=== PATIENT | male | born 1965 | race African-American/Black ===

== ENCOUNTER → 2017-04-05 | Outpatient (CLI) | payer MEDICARE, OTHER ==
[2017-04-05 11:05] LABS: Basophils % (A) 1 %; CH 25.9; Eosinophils # (A) 0.1 k/uL (0-0.7); Eosinophils % (A) 2 %; HDW 2.59; HGB 17.5 gm/dL (13.0-17.5); Luc # (Auto) 0.12; Luc % (Auto) 3; Lymphocytes # (A) 1.2 k/uL (1.0-4.8); Lymphocytes % (A) 29 %; MCH 26.4 pg (25.0-35.0); MCHC 32.4 g/dL (31.0-37.0); MCV 81.3 fL (80.0-100.0); Monocytes # (A) 0.3 k/uL (0-1.0); Monocytes % (A) 6 %; Neutrophils # (A) 2.6 k/uL (1.3-7.7); Neutrophils % (A) 60 %; RBC 6.64 m/uL (4.30-5.90); RDW 13.2 % (11.5-15.5); WBC 4.3 k/uL (3.8-10.6); WBC (Perox) 4.28
[2017-04-05 11:16] LABS: ALT 34 U/L (21-72); AST 30 U/L (17-59); Alkaline Phosphatase 135 U/L (38-126); Anion Gap 10 mmol/L; Blood Urea Nitrogen 12 mg/dL (9-20); Calcium 9.5 mg/dL (8.4-10.2); Carbon Dioxide 28 mmol/L (22-30); Chloride 103 mmol/L (98-107); Cholesterol 166 mg/dL (<200); Glucose 82 mg/dL (74-99); HDL Cholesterol 37 mg/dL (40-60); Non-African American GFR(MDRD) >60 (>60 ml/min/1.73 sqM); Sodium 141 mmol/L (137-145); Total Bilirubin 0.8 mg/dL (0.2-1.3); Total Protein 8.7 g/dL (6.3-8.2); Triglycerides 57 mg/dL (<150)
[2017-04-05 11:52] LABS: Potassium 4.5 mmol/L (3.5-5.1)
== END | disposition home or self-care (01) ==
LOC: LABWHC1 10:28
DX: R41.0 Disorientation, unspecified (principal)
CPT/HCPCS: 36415; 80053; 80061; 82306; 84443; 85025

== ENCOUNTER → 2018-03-23 | Outpatient (CLI) | payer MEDICARE, OTHER ==
[2018-03-23 10:16] LABS: Basophils % (A) 0 %; Eosinophils # (A) 0.1 k/uL (0-0.7); Eosinophils % (A) 2 %; HCT 50.5 % (39.0-53.0); HGB 16.5 gm/dL (13.0-17.5); Lymphocytes # (A) 1.4 k/uL (1.0-4.8); Lymphocytes % (A) 27 %; MCH 25.8 pg (25.0-35.0); MCHC 32.6 g/dL (31.0-37.0); MCV 79.2 fL (80.0-100.0); Mean Platelet Volume 8.4; Monocytes # (A) 0.3 k/uL (0-1.0); Monocytes % (A) 7 %; Neutrophils # (A) 3.1 k/uL (1.3-7.7); Neutrophils % (A) 61 %; Platelet Count 201 k/uL (150-450); RBC 6.37 m/uL (4.30-5.90); RDW 13.8 % (11.5-15.5); WBC 5.1 k/uL (3.8-10.6)
[2018-03-23 10:48] LABS: Albumin 4.4 g/dL (3.5-5.0); Anion Gap 13 mmol/L; Calcium 9.4 mg/dL (8.4-10.2); Carbon Dioxide 25 mmol/L (22-30); Chloride 104 mmol/L (98-107); Cholesterol 157 mg/dL (<200); Glucose 90 mg/dL (74-99); HDL Cholesterol 35 mg/dL (40-60); LDL Cholesterol,Calculated 111 mg/dL (0-99); Sodium 142 mmol/L (137-145); Total Bilirubin 0.6 mg/dL (0.2-1.3); Total Protein 8.1 g/dL (6.3-8.2); Triglycerides 57 mg/dL (<150)
[2018-03-23 11:34] LABS: ALT 20 U/L (21-72); AST 26 U/L (17-59); Alkaline Phosphatase 122 U/L (38-126); Blood Urea Nitrogen 14 mg/dL (9-20); Potassium 4.3 mmol/L (3.5-5.1)
== END | disposition home or self-care (01) ==
LOC: LABWHC1 09:19
PROVIDERS: ATTEND Nurse Practitioner Primary Care
DX: E63.9 Nutritional deficiency, unspecified (principal); D50.9 Iron deficiency anemia, unspecified
CPT/HCPCS: 36416; 80053; 80061; 84443; 85025

== ENCOUNTER → 2020-07-26 | Outpatient (CLI) | payer MEDICARE, OTHER ==
[2020-07-26 11:52] LABS: Amorphous Sediment,Urine Occasional /hpf; Appearance,Urine Cloudy (Clear); Bilirubin,Urine Negative (Negative); Blood,Urine Negative (Negative); Color,Urine Light Yellow; Glucose,Urine (UA) Negative (Negative); Ketones,Urine Negative (Negative); Leukocyte Esterase,Urine Negative (Negative); Mucus,Urine Rare /hpf; Nitrite,Urine Negative (Negative); PH, Urine 7.5 (5.0-8.0); Protein,Urine Negative (Negative); Specific Gravity,Urine 1.012 (1.001-1.035); Squamous Epithelial Cell,Urine <1 /hpf (0-4); Urobilinogen,Urine <2.0 mg/dL (<2.0); WBC,Urine 1 /hpf (0-5)
[2020-07-26 12:02] LABS: Basophils % (A) 1 %; Eosinophils # (A) 0.2 k/uL (0-0.7); Eosinophils % (A) 4 %; HCT 47.5 % (39.0-53.0); HGB 15.2 gm/dL (13.0-17.5); Lymphocytes # (A) 1.4 k/uL (1.0-4.8); Lymphocytes % (A) 28 %; MCH 26.4 pg (25.0-35.0); MCHC 32.1 g/dL (31.0-37.0); MCV 82.2 fL (80.0-100.0); Monocytes # (A) 0.4 k/uL (0-1.0); Monocytes % (A) 7 %; Neutrophils # (A) 2.8 k/uL (1.3-7.7); Neutrophils % (A) 58 %; Platelet Count 183 k/uL (150-450); RBC 5.78 m/uL (4.30-5.90); RDW 13.2 % (11.5-15.5); WBC 4.8 k/uL (3.8-10.6)
[2020-07-26 18:48] LABS: African American GFR (CKD) 142.4 (60.0-200.0); Albumin 4.6 g/dL (3.80-4.90); Albumin/Globulin Ratio 1.44 (1.60-3.17); Anion Gap 7.4 mmol/L (4.00-12.00); Calcium 9.9 mg/dL (8.7-10.3); Carbon Dioxide 31.6 mmol/L (21.6-31.8); Chol/HDL Ratio 4.37; Globulin 3.2 g/dL (1.6-3.3); LDL Cholesterol,Calculated 102.8 mg/dL (0.0-131.0); Non-African American GFR(CKD) 122.9 (60.0-200.0); Potassium 3.9 mmol/L (3.5-5.5); Total Bilirubin 0.3 mg/dL (0.3-1.2); Total Protein 7.8 g/dL (6.2-8.2); VLDL Calculation 15.2 mg/dL (5.00-40.00)
[2020-07-26 20:23] LABS: Folate, Serum 23.6 ng/mL
== END | disposition home or self-care (01) ==
LOC: LABWHC1 10:43
PROVIDERS: ATTEND Family Medicine
DX: K29.60 Other gastritis without bleeding (principal); R10.13 Epigastric pain; R53.81 Other malaise; G82.50 Quadriplegia, unspecified; G40.909 Epilepsy, unspecified, not intractable, without status epilepticus; F72 Severe intellectual disabilities; M41.9 Scoliosis, unspecified; L91.0 Hypertrophic scar; S73.004A Unspecified dislocation of right hip, initial encounter; Q02 Microcephaly; Z79.899 Other long term (current) drug therapy; Z28.21 Immunization not carried out because of patient refusal
CPT/HCPCS: 36415; 80053; 80061; 81001; 82306; 82607; 82746; 84134; 84443; 85025; 87086

== ENCOUNTER → 2021-02-14 | Outpatient (CLI) | payer MEDICARE, OTHER ==
[2021-02-14 14:39] LABS: Appearance,Urine Clear (Clear); Bilirubin,Urine Negative (Negative); Blood,Urine Negative (Negative); Color,Urine Yellow; Glucose,Urine (UA) Negative (Negative); Ketones,Urine Trace (Negative); Leukocyte Esterase,Urine Negative (Negative); Nitrite,Urine Negative (Negative); Protein,Urine Negative (Negative); Specific Gravity,Urine 1.026 (1.001-1.035)
[2021-02-14 19:38] LABS: Basophils # (A) 0.04 X 10*3/uL (0.00-0.10); Basophils % (A) 0.9 %; Eosinophils # (A) 0.14 X 10*3/uL (0.04-0.35); Eosinophils % (A) 3.1 %; HCT 50.7 % (39.6-50.0); HGB 15.9 g/dL (13.0-17.0); Lymphocytes # (A) 1.44 X 10*3/uL (0.90-5.00); Lymphocytes % (A) 31.4 %; MCH 25.4 pg (27.0-32.0); MCHC 31.4 g/dL (32.0-37.0); Mean Platelet Volume 11.4 fL (9.5-12.2); Monocytes % (A) 10.9 %; Neutrophils # (A) 2.47 X 10*3/uL (1.80-7.70); Neutrophils % (A) 53.7 %; Platelet Count 205 X 10*3/uL (140-440); RBC 6.26 X 10*6/uL (4.40-5.60); RDW 13.4 % (11.5-14.5); WBC 4.59 X 10*3/uL (4.50-10.00)
[2021-02-14 21:25] LABS: African American GFR (CKD) 132.1 (60.0-200.0); Albumin 4.7 g/dL (3.80-4.90); Albumin/Globulin Ratio 1.31 (1.60-3.17); Anion Gap 11.8 mmol/L (4.00-12.00); BUN/Creat Ratio 23.33 Ratio (12.00-20.00); Calcium 9.5 mg/dL (8.7-10.3); Carbon Dioxide 25.2 mmol/L (21.6-31.8); Globulin 3.6 g/dL (1.6-3.3); Potassium 3.7 mmol/L (3.5-5.5); Total Bilirubin 0.4 mg/dL (0.3-1.2); Total Protein 8.3 g/dL (6.2-8.2)
== END | disposition home or self-care (01) ==
LOC: LABWHC1 13:17
PROVIDERS: ATTEND Family Medicine
DX: M62.838 Other muscle spasm (principal); G80.9 Cerebral palsy, unspecified; F72 Severe intellectual disabilities
CPT/HCPCS: 36415; 80053; 81003; 84134; 84443; 85025

== ENCOUNTER → 2021-07-25 | Outpatient (CLI) | payer MEDICARE, OTHER ==
[2021-07-25 13:13] LABS: Amorphous Sediment,Urine Rare /hpf; Appearance,Urine Turbid (Clear); Bacteria,Urine Rare /hpf; Bilirubin,Urine Negative (Negative); Blood,Urine Negative (Negative); Color,Urine Yellow; Glucose,Urine (UA) Negative (Negative); Ketones,Urine Negative (Negative); Leukocyte Esterase,Urine Negative (Negative); Mucus,Urine Rare /hpf; Nitrite,Urine Negative (Negative); Protein,Urine Negative (Negative); RBC,Urine 2 /hpf (0-5); Specific Gravity,Urine 1.019 (1.001-1.035); WBC,Urine 3 /hpf (0-5)
[2021-07-25 21:38] LABS: Basophils # (A) 0.03 X 10*3/uL (0.00-0.10); Basophils % (A) 0.5 %; Eosinophils # (A) 0.12 X 10*3/uL (0.04-0.35); Eosinophils % (A) 2.2 %; HCT 49.6 % (39.6-50.0); HGB 15.3 g/dL (13.0-17.0); Lymphocytes # (A) 1.93 X 10*3/uL (0.90-5.00); Lymphocytes % (A) 34.9 %; MCH 25.5 pg (27.0-32.0); MCHC 30.8 g/dL (32.0-37.0); MCV 82.8 fL (80.0-97.0); Mean Platelet Volume 11.9 fL (9.5-12.2); Neutrophils # (A) 2.94 X 10*3/uL (1.80-7.70); Neutrophils % (A) 53.2 %; Platelet Count 205 X 10*3/uL (140-440); RBC 5.99 X 10*6/uL (4.40-5.60); RDW 13.4 % (11.5-14.5); WBC 5.53 X 10*3/uL (4.50-10.00)
[2021-07-26 00:50] LABS: African American GFR (CKD) 134.5 (60.0-200.0); Albumin 4.3 g/dL (3.8-4.9); Albumin/Globulin Ratio 1.31 (1.60-3.17); Anion Gap 16.7 mmol/L (4.00-12.00); Blood Urea Nitrogen 11.3 mg/dL (9.0-27.0); Calcium 9.1 mg/dL (8.7-10.3); Carbon Dioxide 22.5 mmol/L (21.6-31.8); Globulin 3.3 g/dL (1.6-3.3); Potassium 3.4 mmol/L (3.5-5.5); Total Bilirubin 0.3 mg/dL (0.30-1.20); Total Protein 7.7 g/dL (6.2-8.2)
== END | disposition home or self-care (01) ==
LOC: LABWHC1 12:31
PROVIDERS: ATTEND Family Medicine
DX: L03.112 Cellulitis of left axilla (principal); R82.90 Unspecified abnormal findings in urine; R10.13 Epigastric pain
CPT/HCPCS: 36415; 80053; 81001; 84134; 85025; 87086; 87338

== ENCOUNTER → 2021-10-26 | Outpatient (CLI) | payer MEDICARE, OTHER ==
[2021-10-26 17:38] LABS: Basophils # (A) 0.03 X 10*3/uL (0.00-0.10); Basophils % (A) 0.6 %; Eosinophils # (A) 0.09 X 10*3/uL (0.04-0.35); Eosinophils % (A) 1.9 %; HCT 53.2 % (39.6-50.0); HGB 16.7 g/dL (13.0-17.0); Immature Grans, Automated 0.2 %; Lymphocytes # (A) 1.58 X 10*3/uL (0.90-5.00); MCH 25.7 pg (27.0-32.0); MCHC 31.4 g/dL (32.0-37.0); Monocytes # (A) 0.34 X 10*3/uL (0.20-1.00); Monocytes % (A) 7.3 %; NRBC Per 100 WBC 0 /100 WBCS (0.0-0.0); Platelet Count 170 X 10*3/uL (140-440); RBC 6.49 X 10*6/uL (4.40-5.60); RDW 14.1 % (11.5-14.5); WBC 4.65 X 10*3/uL (4.50-10.00)
[2021-10-26 18:22] LABS: Estimated Average Glucose UNC
[2021-10-26 19:35] LABS: Chol/HDL Ratio 4.35 Ratio; LDL Cholesterol,Calculated 110.6 mg/dL (0.0-131.0)
[2021-10-26 20:09] LABS: ALT 17 U/L (10-49); AST 22 U/L (14-35); African American GFR (CKD) 138.7 (60.0-200.0); Albumin 4.5 g/dL (3.8-4.9); Albumin/Globulin Ratio 1.28 (1.60-3.17); Alkaline Phosphatase 146 U/L (41-126); BUN/Creat Ratio 20.23 Ratio (12.00-20.00); Blood Urea Nitrogen 10.6 mg/dL (9.0-27.0); Calcium 9.6 mg/dL (8.7-10.3); Carbon Dioxide 23.4 mmol/L (20.0-27.5); Chloride 102 mmol/L (96-109); Globulin 3.5 g/dL (1.6-3.3); Glucose 81 mg/dL (70-110); Non-African American GFR(CKD) 119.7 (60.0-200.0); Potassium 4.4 mmol/L (3.5-5.5); Sodium 140 mmol/L (135-145)
== END | disposition home or self-care (01) ==
LOC: LABWHC1 10:02
PROVIDERS: ATTEND Family Medicine
DX: Z00.01 Encounter for general adult medical examination with abnormal findings (principal); G80.9 Cerebral palsy, unspecified; G40.909 Epilepsy, unspecified, not intractable, without status epilepticus; S73.004A Unspecified dislocation of right hip, initial encounter; E87.6 Hypokalemia; R73.9 Hyperglycemia, unspecified; R26.9 Unspecified abnormalities of gait and mobility; X58.XXXA Exposure to other specified factors, initial encounter
CPT/HCPCS: 36415; 80053; 80061; 83036; 84439; 84443; 85025

== ENCOUNTER 2022-05-24 11:27 | Outpatient (CLI) | payer MEDICARE, OTHER | END 2022-05-24 13:02 | disposition home or self-care (01) | LOC: LABPAT 11:27 | PROVIDERS: ATTEND Orthopaedic Surgery | DX: Z53.9 Procedure and treatment not carried out, unspecified reason (principal) ==

== ENCOUNTER → 2022-05-31 | Outpatient (CLI) | payer MEDICARE, OTHER ==
[2022-05-31 14:33] LABS: Basophils # (A) 0.03 X 10*3/uL (0.00-0.10); Basophils % (A) 0.6 %; Eosinophils # (A) 0.07 X 10*3/uL (0.04-0.35); Eosinophils % (A) 1.3 %; HCT 53.6 % (39.6-50.0); HGB 17.1 g/dL (13.0-17.0); Immature Grans, Automated 0.2 %; Lymphocytes # (A) 1.37 X 10*3/uL (0.90-5.00); Lymphocytes % (A) 26.3 %; MCH 25.6 pg (27.0-32.0); MCHC 31.9 g/dL (32.0-37.0); MCV 80.4 fL (80.0-97.0); Mean Platelet Volume 11.9 fL (9.5-12.2); Monocytes # (A) 0.39 X 10*3/uL (0.20-1.00); Monocytes % (A) 7.5 %; NRBC Per 100 WBC 0 /100 WBCS (0.0-0.0); Neutrophils # (A) 3.34 X 10*3/uL (1.80-7.70); Neutrophils % (A) 64.1 %; Platelet Count 200 X 10*3/uL (140-440); RBC 6.67 X 10*6/uL (4.40-5.60); RDW 14.4 % (11.5-14.5); WBC 5.21 X 10*3/uL (4.50-10.00)
[2022-05-31 17:15] LABS: African American GFR (CKD) 130.3 (60.0-200.0); Albumin 4.5 g/dL (3.8-4.9); Albumin/Globulin Ratio 1.07 (1.60-3.17); BUN/Creat Ratio 23.83 Ratio (12.00-20.00); Blood Urea Nitrogen 14.3 mg/dL (9.0-27.0); Calcium 9.4 mg/dL (8.7-10.3); Globulin 4.2 g/dL (1.6-3.3); Non-African American GFR(CKD) 112.4 (60.0-200.0); Total Bilirubin 0.5 mg/dL (0.30-1.20); Total Protein 8.7 g/dL (6.2-8.2)
== END | disposition home or self-care (01) ==
LOC: LABWHC1 09:16
PROVIDERS: ATTEND Family Medicine
DX: F72 Severe intellectual disabilities (principal); G40.909 Epilepsy, unspecified, not intractable, without status epilepticus; G82.50 Quadriplegia, unspecified; M25.551 Pain in right hip; M24.451 Recurrent dislocation, right hip; M54.9 Dorsalgia, unspecified; Z79.899 Other long term (current) drug therapy
CPT/HCPCS: 36415; 80053; 84443; 85025

== ENCOUNTER → 2022-09-25 | Outpatient (CLI) | payer MEDICARE, OTHER ==
[2022-09-25 19:23] LABS: Basophils # (A) 0.03 X 10*3/uL (0.00-0.10); Basophils % (A) 0.6 %; Eosinophils # (A) 0.05 X 10*3/uL (0.04-0.35); HGB 16.6 g/dL (13.0-17.0); Immature Grans, Automated 0.2 %; Lymphocytes # (A) 1.82 X 10*3/uL (0.90-5.00); Lymphocytes % (A) 36.3 %; MCH 25.4 pg (27.0-32.0); MCHC 30.7 g/dL (32.0-37.0); MCV 82.7 fL (80.0-97.0); Mean Platelet Volume 11.8 fL (9.5-12.2); Monocytes # (A) 0.48 X 10*3/uL (0.20-1.00); Monocytes % (A) 9.6 %; NRBC Per 100 WBC 0 /100 WBCS (0.0-0.0); Neutrophils # (A) 2.63 X 10*3/uL (1.80-7.70); Neutrophils % (A) 52.3 %; Platelet Count 187 X 10*3/uL (140-440); RBC 6.53 X 10*6/uL (4.40-5.60); RDW 13.9 % (11.5-14.5); WBC 5.02 X 10*3/uL (4.50-10.00)
[2022-09-26 19:45] LABS: ALT 21 U/L (10-49); AST 32 U/L (14-35); African American GFR (CKD) 126.9 (60.0-200.0); Albumin 4.5 g/dL (3.8-4.9); Albumin/Globulin Ratio 1.26 (1.60-3.17); Alkaline Phosphatase 155 U/L (41-126); BUN/Creat Ratio 20.16 Ratio (12.00-20.00); Blood Urea Nitrogen 12.9 mg/dL (9.0-27.0); Calcium 9.7 mg/dL (8.7-10.3); Carbon Dioxide 16.2 mmol/L (20.0-27.5); Chloride 101 mmol/L (96-109); Globulin 3.6 g/dL (1.6-3.3); Glucose 79 mg/dL (70-110); LDL Cholesterol,Calculated 120.9 mg/dL (0.0-131.0); Non-African American GFR(CKD) 109.5 (60.0-200.0); Potassium 4.3 mmol/L (3.5-5.5); Sodium 142 mmol/L (135-145); Total Protein 8.1 g/dL (6.2-8.2); VLDL Calculation 13.74 mg/dL (5.00-40.00)
== END | disposition home or self-care (01) ==
LOC: LABWHC1 11:48
PROVIDERS: ATTEND Family Medicine
DX: G80.9 Cerebral palsy, unspecified (principal); B35.6 Tinea cruris; K21.9 Gastro-esophageal reflux disease without esophagitis; E55.9 Vitamin D deficiency, unspecified; F72 Severe intellectual disabilities; G40.909 Epilepsy, unspecified, not intractable, without status epilepticus; F41.1 Generalized anxiety disorder; S73.004A Unspecified dislocation of right hip, initial encounter; X58.XXXA Exposure to other specified factors, initial encounter
CPT/HCPCS: 36415; 80053; 80061; 82306; 85025

== ENCOUNTER → 2023-05-03 | Outpatient (CLI) | payer MEDICARE, OTHER ==
[2023-05-03 12:20] LABS: Appearance,Urine Cloudy (Clear); Bacteria,Urine Rare /hpf; Bilirubin,Urine Negative (Negative); Blood,Urine Small (Negative); Color,Urine Light Yellow; Glucose,Urine (UA) Negative (Negative); Ketones,Urine Negative (Negative); Leukocyte Esterase,Urine Large (Negative); Mucus,Urine Rare /hpf; Nitrite,Urine Positive (Negative); Protein,Urine Negative (Negative); RBC,Urine 30 /hpf (0-5); Specific Gravity,Urine 1.012 (1.001-1.035); Urobilinogen,Urine <2.0 mg/dL (<2.0); WBC,Urine 30 /hpf (0-5)
[2023-05-03 23:10] LABS: Basophils # (A) 0.05 X 10*3/uL (0.00-0.10); Eosinophils # (A) 0.12 X 10*3/uL (0.04-0.35); Eosinophils % (A) 2.3 %; HCT 54.6 % (39.6-50.0); HGB 17.1 d/dL (13.0-17.0); Lymphocytes # (A) 1.78 X 10*3/uL (0.90-5.00); MCH 25.1 pg (27.0-32.0); MCHC 31.3 d/dL (32.0-37.0); MCV 80.3 FL (80.0-97.0); Mean Platelet Volume 11.4 FL (9.5-12.2); Monocytes # (A) 0.41 X 10*3/uL (0.20-1.00); Monocytes % (A) 7.8 %; NRBC Per 100 WBC 0 X 10*3/uL (0.00-0.01); Neutrophils # (A) 2.87 X 10*3/uL (1.80-7.70); Neutrophils % (A) 54.7 %; Platelet Count 195 X 10*3/uL (140-440); RDW 13.9 % (11.5-14.5); WBC 5.24 X 10*3/uL (4.50-10.00)
[2023-05-04 07:37] LABS: ALT 16 U/L (10-49); AST 25 U/L (14-35); Albumin 4.7 d/dL (3.8-4.9); Albumin/Globulin Ratio 1.27 Ratio (1.60-3.17); Alkaline Phosphatase 155 U/L (41-126); BUN/Creat Ratio 18.33 Ratio (12.00-20.00); Calcium 9.6 mg/dL (8.7-10.3); Carbon Dioxide 27.1 mmol/L (21.6-31.8); Chloride 101 mmol/L (96-109); Globulin 3.7 d/dL (1.6-3.3); Glucose 86 mg/dL (70-110); Potassium 4.2 mmol/L (3.5-5.5); Sodium 139 mmol/L (135-145); Total Bilirubin 0.4 mg/dL (0.3-1.2); Total Protein 8.4 d/dL (6.2-8.2)
== END | disposition home or self-care (01) ==
LOC: LABWHC1 10:28
PROVIDERS: ATTEND General Practice
DX: G80.9 Cerebral palsy, unspecified (principal); Z87.440 Personal history of urinary (tract) infections
CPT/HCPCS: 36415; 80053; 81001; 85025; 87077; 87086; 87186

== ENCOUNTER → 2023-05-10 | Outpatient (CLI) | payer MEDICARE, OTHER ==
[2023-05-10 11:55] LABS: Basophils % (A) 0 %; Eosinophils # (A) 0.1 k/uL (0-0.7); Eosinophils % (A) 1 %; HGB 16.9 gm/dL (13.0-17.5); Lymphocytes % (A) 23 %; MCH 25.7 pg (25.0-35.0); MCHC 32.5 g/dL (31.0-37.0); MCV 79.2 fL (80.0-100.0); Mean Platelet Volume 8.5; Monocytes # (A) 0.3 k/uL (0-1.0); Monocytes % (A) 6 %; Neutrophils # (A) 2.9 k/uL (1.3-7.7); Neutrophils % (A) 68 %; Platelet Count 164 k/uL (150-450); RBC 6.57 m/uL (4.30-5.90); RDW 13.4 % (11.5-15.5); WBC 4.3 k/uL (3.8-10.6)
[2023-05-10 12:56] LABS: ALT 16 U/L (4-49); AST 24 U/L (17-59); African American GFR (CKD) >90 (>60 ml/min/1.73 sqM); Albumin 4.3 g/dL (3.5-5.0); Alkaline Phosphatase 153 U/L (38-126); Anion Gap 10 mmol/L; Blood Urea Nitrogen 12 mg/dL (9-20); Calcium 9.2 mg/dL (8.4-10.2); Carbon Dioxide 28 mmol/L (22-30); Chloride 102 mmol/L (98-107); Globulin 4.2 g/dL; Glucose 109 mg/dL (74-99); Non-African American GFR(CKD) >90 (>60 ml/min/1.73 sqM); Sodium 140 mmol/L (137-145); Total Bilirubin 0.6 mg/dL (0.2-1.3); Total Protein 8.5 g/dL (6.3-8.2)
== END | disposition home or self-care (01) ==
LOC: LABWHC1 10:33
PROVIDERS: ATTEND Family Medicine
DX: N39.0 Urinary tract infection, site not specified (principal); Z29.8 Encounter for other specified prophylactic measures; D75.1 Secondary polycythemia
CPT/HCPCS: 36415; 80053; 85025

== ENCOUNTER → 2023-05-14 | Outpatient (CLI) | payer MEDICARE, OTHER | END | disposition home or self-care (01) | LOC: LABWHC1 10:30 | PROVIDERS: ATTEND Family Medicine | DX: Z29.8 Encounter for other specified prophylactic measures (principal); N39.0 Urinary tract infection, site not specified; D75.1 Secondary polycythemia | CPT/HCPCS: 36415; 82668 ==

== ENCOUNTER → 2023-11-29 | Outpatient (CLI) | payer MEDICARE, OTHER ==
[2023-11-29 22:40] LABS: HCT 51.4 % (39.6-50.0); HGB 16.2 g/dL (13.0-17.0); MCH 25.4 pg (27.0-32.0); MCHC 31.5 g/dL (32.0-37.0); MCV 80.6 FL (80.0-97.0); Mean Platelet Volume 11.8 FL (9.5-12.2); NRBC Per 100 WBC 0 X 10*3/uL (0.00-0.01); Platelet Count 196 X 10*3/uL (140-440); RBC 6.38 X 10*6/uL (4.40-5.60); WBC 4.81 X 10*3/uL (4.50-10.00)
[2023-11-29 22:51] LABS: Appearance,Urine Clear (Clear); Bilirubin,Urine Negative (Negative); Blood,Urine Negative (Negative); Color,Urine Yellow (Yellow); Ketones,Urine Negative (Negative); Nitrite,Urine Negative (Negative); PH, Urine 6.5
[2023-11-29 23:17] LABS: Chol/HDL Ratio 4.82 Ratio; LDL Cholesterol,Calculated 119.9 mg/dL (0.0-131.0); VLDL Calculation 14.82 mg/dL (5.00-40.00)
[2023-11-29 23:30] LABS: ALT 19 U/L (10-49); AST 24 U/L (14-35); Albumin 4.3 g/dL (3.8-4.9); Albumin/Globulin Ratio 1.26 Ratio (1.60-3.17); Alkaline Phosphatase 148 U/L (41-126); Blood Urea Nitrogen 9.6 mg/dL (9.0-27.0); Calcium 9.2 mg/dL (8.7-10.3); Carbon Dioxide 26.7 mmol/L (21.6-31.8); Chloride 102 mmol/L (96-109); Globulin 3.4 g/dL (1.6-3.3); Glucose 82 mg/dL (70-110); Potassium 4.3 mmol/L (3.5-5.5); Sodium 141 mmol/L (135-145); Total Bilirubin 0.4 mg/dL (0.3-1.2); Total Protein 7.7 g/dL (6.2-8.2)
== END | disposition home or self-care (01) ==
LOC: LABWHC1 10:49
PROVIDERS: ATTEND Family Medicine
DX: G80.9 Cerebral palsy, unspecified (principal); R39.89 Other symptoms and signs involving the genitourinary system; Z79.899 Other long term (current) drug therapy
CPT/HCPCS: 36415; 80053; 80061; 81003; 82306; 85027; 87086

== ENCOUNTER 2024-03-20 16:53 | Inpatient (IN) | payer MEDICARE, OTHER ==
--- NOTE | 2024-03-20 17:39 | ED ---
General Adult HPI - General Chief complaint: Shortness of Breath Stated complaint: SOB Time Seen by Provider: 03/20/24 17:36 Source: patient, family, RN notes reviewed Mode of arrival: wheelchair Limitations: no limitations - History of Present Illness Initial comments: 58-year-old male with a past medical history significant of cerebral palsy presenting to the ER with a chief complaint of lethargy. Sister is providing most of HPI as patient is nonverbal. She reports for the past 2 days patient has been more lethargic than normal. She states he seems to be having abnormal breathing and was feeling "hot". Temperature taken at home was normal but she states he felt hot through his clothing. She states he has been having a mild cough. She also reports he has been having a decreased appetite which is extremely abnormal as his favorite past time is eating. Denies any chest pain, shortness of breath, abdominal pain, constipation/diarrhea, urinary complaints or peripheral edema. - Related Data Home Medications Medication Instructions Recorded Confirmed ALPRAZolam [Xanax] 0.25 mg PO BID PRN 03/20/24 03/20/24 Ascorbic Acid [Vitamin C] 500 mg PO DAILY 03/20/24 03/20/24 Famotidine [Pepcid] 20 mg PO BID 03/20/24 03/20/24 Omeprazole 20 mg PO DAILY 03/20/24 03/20/24 polyethylene glycoL 3350 [Miralax] 17 gm PO DAILY 03/20/24 03/20/24 tiZANidine [Zanaflex] 4 mg PO TID 03/20/24 03/20/24 Allergies Allergy/AdvReac Type Severity Reaction Status Date / Time No Known Allergies Allergy Verified 03/20/24 19:42 Review of Systems ROS Statement: Those systems with pertinent positive or pertinent negative responses have been documented in the HPI. ROS Other: All systems not noted in ROS Statement are negative. Past Medical History Additional Past Medical History / Comment(s): Spastic quadriplegia, cerebtal palsy, microcephaly, seizur disorder, nystagmus, strabismus. Chronically dislocated right hip (monitored by [facility], [facility]) Additional Past Surgical History / Comment(s): Heelcord and hamstring lengthening (1971), right femur varus derotation with internal fixation (1975), Internal fixation removal (1978) Past Psychological History: No Psychological Hx Reported Smoking Status: Never smoker Past Alcohol Use History: None Reported Past Drug Use History: None Reported General Exam Limitations: no limitations General appearance: alert, in no apparent distress Respiratory exam: Present: normal lung sounds bilaterally. Absent: respiratory distress, wheezes, rales, rhonchi, stridor Cardiovascular Exam: Present: regular rate, normal rhythm, normal heart sounds. Absent: systolic murmur, diastolic murmur, rubs, gallop, clicks GI/Abdominal exam: Present: soft, distended, normal bowel sounds Extremities exam: Present: normal inspection, full ROM, normal capillary refill. Absent: tenderness, pedal edema, joint swelling, calf tenderness Skin exam: Present: warm, dry, intact, normal color. Absent: rash Course Vital Signs 03/20/24 03/20/24 03/20/24 17:02 17:12 18:17 Temperature 98.2 F 100.5 F H Pulse Rate 110 H 104 H Respiratory 16 18 Rate Blood Pressure 123/84 O2 Sat by Pulse 97 97 Oximetry 03/20/24 03/20/24 03/20/24 19:00 22:00 22:47 Temperature 98.0 F Pulse Rate 94 91 Respiratory 18 18 Rate Blood Pressure 107/73 140/72 O2 Sat by Pulse 98 99 Oximetry Medical Decision Making - Medical Decision Making Was pt. sent in by a medical professional or institution (CORY Glez, DONOR SERVICES COORDINATOR, urgent care, hospital, or intermediate...) When possible be specific @ -No Did you speak to anyone other than the patient for history (EMS, parent, family, police, friend...)? What history was obtained from this source @ -Sister providing HPI and past medical history in its entirety Did you review nursing and triage notes (agree or disagree)? Why? @ -I reviewed and agree with nursing and triage notes Were old charts reviewed (outside hosp., previous admission, EMS record, old EKG, old radiological studies, urgent care reports/EKG's, intermediate records)? Report findings @ -No old charts were reviewed Differential Diagnosis (chest pain, altered mental status, abdominal pain women, abdominal pain men, vaginal bleeding, weakness, fever, dyspnea, syncope, headache, dizziness, GI bleed, back pain, seizure, CVA, palpatations, mental health, musculoskeletal)? @ -Differential Weakness:Hypoglycemia, shock, sepsis, hyponatremia, anemia, infection, MO, ETOH, adverse medicine reaction, overdose, stroke, this is not meant to be an all-inclusive list. EKG interpreted by me (3pts min.). @ -As above X-rays interpreted by me (1pt min.). @ -KUB x-ray interpreted by me negative for acute cardiopulmonary process. CT interpreted by me (1pt min.). @ -CT abdomen pelvis showing a fecal impaction and dilation of large bowel. U/S interpreted by me (1pt. min.). @ -None done What testing was considered but not performed or refused? (CT, X-rays, U/S, labs)? Why? @ -None What meds were considered but not given or refused? Why? @ -None Did you discuss the management of the patient with other professionals (professionals i.e. , PA, DONOR SERVICES COORDINATOR, lab, RT, psych nurse, social media content manager, sole splitter, teacher, chief juvenile probation officer, case management assistant)? Give summary @ -Yes, case discussed with Dr. Cho who accepts medical admission. Was smoking cessation discussed for >3mins.? @ -No Was critical care preformed (if so, how long)? @ -No Were there social determinants of health that impacted care today? How? (Homelessness, low income, unemployed, alcoholism, drug addiction, transpo rtation, low edu. Level, literacy, decrease access to med. care, long-term, rehab)? @ -No Was there de-escalation of care discussed even if they declined (Discuss DNR or withdrawal of care, Hospice)? DNR status @ -No What co-morbidities impacted this encounter? (DM, HTN, Smoking, COPD, CAD, Cancer, CVA, ARF, Chemo, Hep., AIDS, mental health diagnosis, sleep apnea, morbid obesity)? @ -Cerebral palsy Was patient admitted / discharged? Hospital course, mention meds given and route, prescriptions, significant lab abnormalities, going to OR and other pertinent info. @ -Admitted. 58-year-old male presented to the ER with a chief complaint of lethargy. Sister providing most of HPI. History and physical exam completed. Vitals upon arrival remarkable for a temperature of 100.5 otherwise stable. Exam remarkable for mild distention of abdomen with normal bowel sounds. No focal abdominal tenderness. No rebound or guarding. Laboratory studies obtained remarkable for a leukocytosis WBC 22.2 with a left shift. Hypokalemia 2.9, chloride 109. Urinalysis showing trace glucose and 1+ protein concern of dehydration. Viral swabs negative. Chest x-ray negative. CT abdomen pelvis pe rformed due to abdominal distention. Findings consistent with a fecal impaction. Admission considered for leukocytosis. Case discussed with sound physician, Dr. Cho, accepts admission. Surgery will be on consult for fecal impaction. Blood cultures obtained. Patient started on Zosyn and potassium replacement. Patient made in stable condition. Case discussed with ED attending, Dr. Naidu. Undiagnosed new problem with uncertain prognosis? @ -No Drug Therapy requiring intensive monitoring for toxicity (Heparin, Nitro, Insulin, Cardizem)? @ -No Were any procedures done? @ -No Diagnosis/symptom? @ -Leukocytosis/fecal impaction Acute, or Chronic, or Acute on Chronic? @ -Acute Uncomplicated (without systemic symptoms) or Complicated (systemic symptoms)? @ -Complicated Side effects of treatment? @ -No Exacerbation, Progression, or Severe Exacerbation? @ -No Poses a threat to life or bodily function? How? (Chest pain, USA, MO, pneumonia, PE, COPD, DKA, ARF, appy, cholecystitis, CVA, Diverticulitis, Homicidal, Suicidal, threat to staff... and all critical care pts) @ -Yes, leukocytosis - Lab Data Result diagrams: 03/20/24 18:15 03/20/24 18:15 Lab Results 03/20/24 03/20/24 03/20/24 Range/Units 18:15 18:15 18:15 WBC 22.2 H (3.8-10.6) k/uL RBC 5.80 (4.30-5.90) m/uL Hgb 14.5 (13.0-17.5) gm/dL Hct 47.7 (39.0-53.0) % MCV 82.3 (80.0-100.0) fL MCH 25.1 (25.0-35.0) pg MCHC 30.5 L (31.0-37.0) g/dL RDW 13.7 (11.5-15.5) % Plt Count 193 (150-450) k/uL MPV 9.5 Neutrophils % 86 % Lymphocytes % 5 % Monocytes % 6 % Eosinophils % 1 % Basophils % 0 % Neutrophils # 19.2 H (1.3-7.7) k/uL Lymphocytes # 1.0 (1.0-4.8) k/uL Monocytes # 1.4 H (0-1.0) k/uL Eosinophils # 0.3 (0-0.7) k/uL Basophils # 0.1 (0-0.2) k/uL PT 11.7 (10.0-12.5) sec INR 1.1 (<1.2) APTT 27.0 (22.0-30.0) sec D-Dimer 0.55 (<0.60) mg/L FEU Sodium (137-145) mmol/L Potassium (3.5-5.1) mmol/L Chloride (98-107) mmol/L Carbon Dioxide (22-30) mmol/L Anion Gap mmol/L BUN (9-20) mg/dL Creatinine (0.66-1.25) mg/dL Est GFR (CKD-EPI)AfAm (>60 ml/min/1.73 sqM) Est GFR (CKD-EPI)NonAf (>60 ml/min/1.73 sqM) Glucose (74-99) mg/dL Calcium (8.4-10.2) mg/dL Total Bilirubin (0.2-1.3) mg/dL AST (17-59) U/L ALT (4-49) U/L Alkaline Phosphatase (38-126) U/L Troponin I (0.000-0.034) ng/mL Total Protein (6.3-8.2) g/dL Albumin (3.5-5.0) g/dL Urine Color Yellow Urine Appearance Clear (Clear) Urine pH 6.0 (5.0-8.0) Ur Specific Correll 1.027 (1.001-1.035) Urine Protein 1+ H (Negative) Urine Glucose (UA) Trace H (Negative) Urine Ketones Negative (Negative) Urine Blood Negative (Negative) Urine Nitrite Negative (Negative) Urine Bilirubin Negative (Negative) Urine Urobilinogen 8.0 (<2.0) mg/dL Ur Leukocyte Esterase Negative (Negative) Urine RBC 3 (0-5) /hpf Urine WBC 1 (0-5) /hpf Urine Mucus Rare H (None) /hpf Influenza Type A (PCR) (Not Detectd) Influenza Type B (PCR) (Not Detectd) RSV (PCR) (Not Detectd) SARS-CoV-2 (PCR) (Not Detectd) 03/20/24 03/20/24 03/20/24 Range/Units 18:15 18:15 18:15 WBC (3.8-10.6) k/uL RBC (4.30-5.90) m/uL Hgb (13.0-17.5) gm/dL Hct (39.0-53.0) % MCV (80.0-100.0) fL MCH (25.0-35.0) pg MCHC (31.0-37.0) g/dL RDW (11.5-15.5) % Plt Count (150-450) k/uL MPV Neutrophils % % Lymphocytes % % Monocytes % % Eosinophils % % Basophils % % Neutrophils # (1.3-7.7) k/uL Lymphocytes # (1.0-4.8) k/uL Monocytes # (0-1.0) k/uL Eosinophils # (0-0.7) k/uL Basophils # (0-0.2) k/uL PT (10.0-12.5) sec INR (<1.2) APTT (22.0-30.0) sec D-Dimer (<0.60) mg/L FEU Sodium 139 (137-145) mmol/L Potassium 2.9 L (3.5-5.1) mmol/L Chloride 109 H (98-107) mmol/L Carbon Dioxide 22 (22-30) mmol/L Anion Gap 8 mmol/L BUN 19 (9-20) mg/dL Creatinine 0.38 L (0.66-1.25) mg/dL Est GFR (CKD-EPI)AfAm >90 (>60 ml/min/1.73 sqM) Est GFR (CKD-EPI)NonAf >90 (>60 ml/min/1.73 sqM) Glucose 129 H (74-99) mg/dL Calcium 8.0 L (8.4-10.2) mg/dL Total Bilirubin 0.9 (0.2-1.3) mg/dL AST 23 (17-59) U/L ALT 18 (4-49) U/L Alkaline Phosphatase 119 (38-126) U/L Troponin I 0.023 (0.000-0.034) ng/mL Total Protein 6.0 L (6.3-8.2) g/dL Albumin 3.1 L (3.5-5.0) g/dL Urine Color Urine Appearance (Clear) Urine pH (5.0-8.0) Ur Specific Correll (1.001-1.035) Urine Protein (Negative) Urine Glucose (UA) (Negative) Urine Ketones (Negative) Urine Blood (Negative) Urine Nitrite (Negative) Urine Bilirubin (Negative) Urine Urobilinogen (<2.0) mg/dL Ur Leukocyte Esterase (Negative) Urine RBC (0-5) /hpf Urine WBC (0-5) /hpf Urine Mucus (None) /hpf Influenza Type A (PCR) Not Detected (Not Detectd) Influenza Type B (PCR) Not Detected (Not Detectd) RSV (PCR) Not Detected (Not Detectd) SARS-CoV-2 (PCR) Not Detected (Not Detectd) - EKG Data -: EKG Interpreted by Fl EKG Comments: EKG taken at 18: 06 showing a sinus rhythm with no acute ST segment or T wave abnormalities. Ventricular rate 97, TX interval 141, QRS duration 112, QT/QTc 339/393. - Radiology Data Radiology results: report reviewed, image reviewed Disposition Clinical Impression: Fecal impaction, Leukocytosis, Hypokalemia Disposition: ADMITTED IP TO THIS [facility] Condition: Stable Referrals: Neil Conway MD [Primary Care Provider] - 1-2 days Time of Disposition: 23:14
[2024-03-20 18:57] LABS: Appearance,Urine Clear (Clear); Bilirubin,Urine Negative (Negative); Blood,Urine Negative (Negative); Color,Urine Yellow; Glucose,Urine (UA) Trace (Negative); Ketones,Urine Negative (Negative); Leukocyte Esterase,Urine Negative (Negative); Mucus,Urine Rare /hpf; Nitrite,Urine Negative (Negative); Protein,Urine 1+ (Negative); RBC,Urine 3 /hpf (0-5); Specific Gravity,Urine 1.027 (1.001-1.035); WBC,Urine 1 /hpf (0-5)
[2024-03-20] MEDS: ACETAMINOPHEN TAB 325 MG TAB PO STA (18:58)
[2024-03-20] MEDS: SODIUM CHLORIDE 0.9% 500 ML 500 ML IV STA (18:58)
[2024-03-20 19:05] LABS: Basophils # (A) 0.1 k/uL (0-0.2); Basophils % (A) 0 %; Eosinophils # (A) 0.3 k/uL (0-0.7); Eosinophils % (A) 1 %; HCT 47.7 % (39.0-53.0); HGB 14.5 gm/dL (13.0-17.5); Lymphocytes % (A) 5 %; MCH 25.1 pg (25.0-35.0); MCHC 30.5 g/dL (31.0-37.0); MCV 82.3 fL (80.0-100.0); Mean Platelet Volume 9.5; Monocytes # (A) 1.4 k/uL (0-1.0); Monocytes % (A) 6 %; Neutrophils # (A) 19.2 k/uL (1.3-7.7); Neutrophils % (A) 86 %; Platelet Count 193 k/uL (150-450); RDW 13.7 % (11.5-15.5); WBC 22.2 k/uL (3.8-10.6)
[2024-03-20 19:16] LABS: ALT 18 U/L (4-49); AST 23 U/L (17-59); African American GFR (CKD) >90 (>60 ml/min/1.73 sqM); Albumin 3.1 g/dL (3.5-5.0); Alkaline Phosphatase 119 U/L (38-126); Anion Gap 8 mmol/L; Blood Urea Nitrogen 19 mg/dL (9-20); Carbon Dioxide 22 mmol/L (22-30); Chloride 109 mmol/L (98-107); Glucose 129 mg/dL (74-99); Non-African American GFR(CKD) >90 (>60 ml/min/1.73 sqM); Potassium 2.9 mmol/L (3.5-5.1); Sodium 139 mmol/L (137-145); Total Bilirubin 0.9 mg/dL (0.2-1.3)
[2024-03-20 19:24] LABS: INR 1.1 (<1.2); Prothrombin Time 11.7 sec (10.0-12.5)
--- NOTE | 2024-03-20 21:19 | XR ---
EXAMINATION TYPE: XR chest 2V DATE OF EXAM: 03/20/2024 COMPARISON: NONE HISTORY: Shortness of breath TECHNIQUE: Frontal and lateral views of the chest are obtained. FINDINGS: Scattered senescent parenchymal changes noted. Hyperinflation compatible with COPD. No evidence for infiltrate. No evidence for atelectasis. Heart size is stable. Mediastinal structures are stable and grossly unremarkable. No evidence for hilar prominence. Degenerative changes dorsal spine. IMPRESSION: 1. No evidence for acute pulmonary disease.
--- NOTE | 2024-03-20 21:39 | CT ---
EXAMINATION TYPE: CT abdomen pelvis w con DATE OF EXAM: 03/20/2024 COMPARISON: HISTORY: Leukocytosis. CT DLP: 1063 mGycm CONTRAST: CT scan of the abdomen and pelvis is performed without Oral Contrast and with IV Contrast, patient in jected with 100 ml mL of Isovue 300. FINDINGS: LUNG BASES-: No visible nodule. No infiltrate. Chronic elevation right hemidiaphragm. Interposition right hemicolon with the right hemidiaphragm. LIVER/GB: No calcified gallstones. No space occupying hepatic lesion. Biliary tree is of normal ca liber. PANCREAS: No inflammation. No distinct mass. SPLEEN: No splenic enlargement. No lesion seen. ADRENALS: No nodule. No thickening. KIDNEYS/BLADDER: No hydronephrosis. No nephrolithiasis. No distinct renal mass. Urinary bladder g rossly unremarkable. BOWEL: Normal appendix. Normal bowel caliber. No inflammation. Large fecal burden compatible with f ecal impaction and dilatation of the large bowel. No evidence for free air. GENITAL ORGANS: No gross abnormality. LYMPH NODES: No greater than 1cm abdominal or pelvic lymph nodes are appreciated. AORTA: No significant abnormality. OSSEOUS STRUCTURES: No significant abnormality is seen. OTHER: No significant additional abnormality is seen. IMPRESSION: 1. Findings felt to reflect fecal impaction.
[2024-03-20] MEDS ORDERED: NALOXONE 0.4 MG/ML 1 ML VIAL IV PRN (23:11)
[2024-03-20] MEDS ORDERED: Potassium Replacement Protocol 1 EACH MISC MISCELLANE PRN (23:12)
[2024-03-20] MEDS: PIPERACILLIN-TAZOBACTAM 3.375 GM in SODIUM CHLORIDE 0.9% 100 ML IVPB STA (23:58)
[2024-03-20] MEDS: SODIUM CHLORIDE 0.9% 1,000 ML IV SCH (23:58)
[2024-03-21] MEDS ORDERED: POTASSIUM CHLORIDE 10 MEQ in WATER FOR INJECTION 1 100ML.BAG IVPB SCH
[2024-03-21] MEDS ORDERED: POTASSIUM CHLORIDE ER 20 MEQ TAB.ER PO SCH
[2024-03-21] MEDS: ALPRAZolam 0.25 MG TAB PO PRN
[2024-03-21] MEDS: ACETAMINOPHEN TAB 325 MG TAB PO PRN (00:08)
--- NOTE | 2024-03-21 01:52 | P.HPIM ---
History of Present Illness H&P Date: 03/21/24 Patient is a 58-year-old male with a PMH of cerebral palsy who was brought into the emergency room for by his family for complaint of lethargic and poor oral intake. The history was obtained from the patient's sister (caregiver) at the bedside. She reports that the patient has been less talkative from his baseline over the past 2 to 3 days. She also reports noticing that he appeared to be somewhat short of breath and that he appeared warm at home. She also had noticed that he had a mild nonproductive cough. The patient had not endorsed any additional complaints to her. She denies noticing diarrhea or vomiting. She in fact reports that he has intermittent constipation and that his last bowel movement was 2 days ago for which he normally takes MiraLAX at home which works well. She denies noticing any urinary complaints, vomiting. CT abdomen and pelvis in the emergency room were consistent with fecal impaction with a chest x-ray unremarkable. EKG revealed sinus rhythm at 97 bpm with findings consistent with LVH with poor R wave progression and inferior leads Q waves as reviewed by me. Laboratory evaluation was remarkable for leukocytosis of 22.2 with neutrophilia, potassium 2.9, with an unremarkable UA and respiratory viral panel unremarkable. Tmax in the emergency room was 101 F with pulse 112. ED documentation reviewed and case discussed with ED provider. Review of systems: Limited due to patient's baseline mental status with history of cerebral palsy Physical examination: Vital signs reviewed General: Contracted male, non toxic, no distress, appears at stated age, normal weight Derm: no unusual rashes/lesions, warm Head: atraumatic, normocephalic, symmetric Eyes: EOMI, no lid lag, anicteric sclera, pupils equal round reactive to light ENT: Nose and ears atraumatic Neck: No cervical lymphadenopathy, trachea midline, supple Mouth: no lip lesion, mucus membranes moist Cardiovascular: S1S2 reg, no murmur, positive dorsalis pedis pulse bilateral, no edema Lungs: CTA bilateral, no rhonchi, no rales, no accessory muscle use Abdominal: soft, nontender to palpation, no guarding Ext: Diffuse muscle atrophy with diffuse contractures Neuro: Severely limited range of motion with diffuse contractures Psych: Patient is only oriented to self and answers some questions Assessment: SIRS without obvious source of infection Hypokalemia Fecal impaction Chronic conditions: Cerebral palsy Imaging: CT abdomen and pelvis in the emergency room were consistent with fecal impaction with a chest x-ray unremarkable. EKG revealed sinus rhythm at 97 bpm with findi ngs consistent with LVH with poor R wave progression and inferior leads Q waves as reviewed by me. Data Review: Laboratory evaluation was remarkable for leukocytosis of 22.2 with neutrophilia, potassium 2.9, with an unremarkable UA and respiratory viral panel unremarkable. Tmax in the emergency room was 101 F with pulse 112. Plan: Follow-up blood cultures Continue with cardiac monitoring Continue IV fluids normal saline 75 cc/h Continue empiric antibiotic coverage with Zosyn 3.375 g every 8 hourly for now Replace potassium and monitor for resolution Patient normally takes MiraLAX at home for constipation, ordered for now DVT prophylaxis: Lovenox subcu The patient is admitted with an anticipated fewer than 2 midnight stay for evaluation of SIRS CODE STATUS: Full Code Discussed with: Patient Anticipated discharge place: Home Review of Systems ROS unobtainable: due to mental status Past Medical History Additional Past Medical History / Comment(s): Spastic quadriplegia, cerebtal palsy, microcephaly, seizur disorder, nystagmus, strabismus. Chronically dislocated right hip (monitored by [facility], [facility]) Additional Past Surgical History / Comment(s): Heelcord and hamstring lengthening (1971), right femur varus derotation with internal fixation (1975), Internal fixation removal (1978) Past Psychological History: No Psychological Hx Reported Smoking Status: Never smoker Past Alcohol Use History: None Reported Past Drug Use History: None Reported Medications and Allergies Home Medications Medication Instructions Recorded Confirmed Type ALPRAZolam [Xanax] 0.25 mg PO BID PRN 03/20/24 03/20/24 History Ascorbic Acid [Vitamin C] 500 mg PO DAILY 03/20/24 03/20/24 History Famotidine [Pepcid] 20 mg PO BID 03/20/24 03/20/24 History Omeprazole 20 mg PO DAILY 03/20/24 03/20/24 History polyethylene glycoL 3350 [Miralax] 17 gm PO DAILY 03/20/24 03/20/24 History tiZANidine [Zanaflex] 4 mg PO TID 03/20/24 03/20/24 History Allergies Allergy/AdvReac Type Severity Reaction Status Date / Time No Known Allergies Allergy Verified 03/20/24 19:42 Physical Exam Vitals: Vital Signs Temp Pulse Resp BP Pulse Ox 03/21/24 00:00 101 F H 112 H 18 147/100 99 03/20/24 22:47 98.0 F 03/20/24 22:00 91 18 140/72 99 03/20/24 19:00 94 18 107/73 98 03/20/24 18:17 100.5 F H 03/20/24 17:12 104 H 18 97 03/20/24 17:02 98.2 F 110 H 16 123/84 97 Intake and Output 03/20/24 03/20/24 03/21/24 14:59 22:59 06:59 Other: Weight 54.431 kg Results CBC & Chem 7: 03/20/24 18:15 03/20/24 18:15 Labs: Abnormal Lab Results - Last 24 Hours (Table) 03/20/24 03/20/24 03/20/24 Range/Units 18:15 18:15 18:15 WBC 22.2 H (3.8-10.6) k/uL MCHC 30.5 L (31.0-37.0) g/dL Neutrophils # 19.2 H (1.3-7.7) k/uL Monocytes # 1.4 H (0-1.0) k/uL Potassium 2.9 L (3.5-5.1) mmol/L Chloride 109 H (98-107) mmol/L Creatinine 0.38 L (0.66-1.25) mg/dL Glucose 129 H (74-99) mg/dL Calcium 8.0 L (8.4-10.2) mg/dL Total Protein 6.0 L (6.3-8.2) g/dL Albumin 3.1 L (3.5-5.0) g/dL Urine Protein 1+ H (Negative) Urine Glucose (UA) Trace H (Negative) Urine Mucus Rare H (None) /hpf
[2024-03-21] MEDS: POTASSIUM BICARBONATE/CIT AC 20 MEQ TABLET.EFF PO SCH (03:29)
[2024-03-21] MEDS: polyethylene glycoL 3350 17 GM POWD.PACK PO STA (03:31)
[2024-03-21] MEDS: PIPERACILLIN-TAZOBACTAM 3.375 GM in SODIUM CHLORIDE 0.9% 100 ML IVPB SCH (03:32)
[2024-03-21] MEDS: ASCORBIC ACID 500 MG TAB PO SCH (08:54)
[2024-03-21] MEDS: FAMOTIDINE 20 MG TAB PO SCH (08:54)
[2024-03-21] MEDS: PANTOPRAZOLE 40 MG TABLET PO SCH (08:54)
[2024-03-21] MEDS: ENOXAPARIN 40 MG/0.4 ML SYRINGE SQ SCH (08:55)
[2024-03-21] MEDS: tiZANidine 4 MG TAB PO SCH (08:56)
--- NOTE | 2024-03-21 10:23 | P.GSCN ---
History of Present Illness Consult date: 03/21/24 Reason for Consult: Fecal impaction History of present illness: 58-year-old male with history of cerebral palsy. Unable to provide any history. Patient's brother is present and is assisting with that. Apparently he was having fevers and lethargy at home. Some cough as well. Patient with history of intermittent diarrhea and constipation. Some decreased stools recently. CAT scan was performed showing a large volume of stool particularly in the rectum. We were consulted for fecal impaction. Review of Systems ROS unobtainable: due to mental status Past Medical History Additional Past Medical History / Comment(s): Spastic quadriplegia, cerebtal palsy, microcephaly, seizur disorder, nystagmus, strabismus. Chronically dislocated right hip (monitored by [facility], [facility]) History of Any Multi-Drug Resistant Organisms: None Reported Additional Past Surgical History / Comment(s): Heelcord and hamstring lengthening (1971), right femur varus derotation with internal fixation (1975), Internal fixation removal (1978) Past Psychological History: No Psychological Hx Reported Smoking Status: Never smoker Past Alcohol Use History: None Reported Past Drug Use History: None Reported Medications and Allergies Home Medications Medication Instructions Recorded Confirmed Type ALPRAZolam [Xanax] 0.25 mg PO BID PRN 03/20/24 03/20/24 History Ascorbic Acid [Vitamin C] 500 mg PO DAILY 03/20/24 03/20/24 History Famotidine [Pepcid] 20 mg PO BID 03/20/24 03/20/24 History Omeprazole 20 mg PO DAILY 03/20/24 03/20/24 History polyethylene glycoL 3350 [Miralax] 17 gm PO DAILY 03/20/24 03/20/24 History tiZANidine [Zanaflex] 4 mg PO TID 03/20/24 03/20/24 History Allergies Allergy/AdvReac Type Severity Reaction Status Date / Time No Known Allergies Allergy Verified 03/20/24 19:42 Surgical - Exam Vital Signs Temp Pulse Resp BP Pulse Ox 98.2 F 110 H 16 123/84 97 03/20/24 17:02 03/20/24 17:02 03/20/24 17:02 03/20/24 17:02 03/20/24 17:02 Physical exam: General: Well-developed, well-nourished HEENT: Normocephalic, sclerae nonicteric Abdomen: Nontender, nondistended Extremities: Can factures noted Neuro: Alert and pleasant Rectal: No mass, large volume of soft stool present Results - Labs 03/20/24 18:15 03/20/24 18:15 Abnormal Lab Results - Last 24 Hours (Table) 03/20/24 03/20/24 03/20/24 Range/Units 18:15 18:15 18:15 WBC 22.2 H (3.8-10.6) k/uL MCHC 30.5 L (31.0-37.0) g/dL Neutrophils # 19.2 H (1.3-7.7) k/uL Monocytes # 1.4 H (0-1.0) k/uL Potassium 2.9 L (3.5-5.1) mmol/L Chloride 109 H (98-107) mmol/L Creatinine 0.38 L (0.66-1.25) mg/dL Glucose 129 H (74-99) mg/dL Calcium 8.0 L (8.4-10.2) mg/dL Total Protein 6.0 L (6.3-8.2) g/dL Albumin 3.1 L (3.5-5.0) g/dL Urine Protein 1+ H (Negative) Urine Glucose (UA) Trace H (Negative) Urine Mucus Rare H (None) /hpf Diabetes panel 03/20/24 Range/Units 18:15 Sodium 139 (137-145) mmol/L Potassium 2.9 L (3.5-5.1) mmol/L Chloride 109 H (98-107) mmol/L Carbon Dioxide 22 (22-30) mmol/L BUN 19 (9-20) mg/dL Creatinine 0.38 L (0.66-1.25) mg/dL Glucose 129 H (74-99) mg/dL Calcium 8.0 L (8.4-10.2) mg/dL AST 23 (17-59) U/L ALT 18 (4-49) U/L Alkaline Phosphatase 119 (38-126) U/L Total Protein 6.0 L (6.3-8.2) g/dL Albumin 3.1 L (3.5-5.0) g/dL Calcium panel 03/20/24 Range/Units 18:15 Calcium 8.0 L (8.4-10.2) mg/dL Albumin 3.1 L (3.5-5.0) g/dL Pituitary panel 03/20/24 Range/Units 18:15 Sodium 139 (137-145) mmol/L Potassium 2.9 L (3.5-5.1) mmol/L Chloride 109 H (98-107) mmol/L Carbon Dioxide 22 (22-30) mmol/L BUN 19 (9-20) mg/dL Creatinine 0.38 L (0.66-1.25) mg/dL Glucose 129 H (74-99) mg/dL Calcium 8.0 L (8.4-10.2) mg/dL Adrenal panel 03/20/24 Range/Units 18:15 Sodium 139 (137-145) mmol/L Potassium 2.9 L (3.5-5.1) mmol/L Chloride 109 H (98-107) mmol/L Carbon Dioxide 22 (22-30) mmol/L BUN 19 (9-20) mg/dL Creatinine 0.38 L (0.66-1.25) mg/dL Glucose 129 H (74-99) mg/dL Calcium 8.0 L (8.4-10.2) mg/dL Total Bilirubin 0.9 (0.2-1.3) mg/dL AST 23 (17-59) U/L ALT 18 (4-49) U/L Alkaline Phosphatase 119 (38-126) U/L Total Protein 6.0 L (6.3-8.2) g/dL Albumin 3.1 L (3.5-5.0) g/dL Assessment and Plan (1) Fecal impaction Narrative/Plan: 58-year-old male with fecal impaction by CAT scan. On exam patient has soft stool present. Will request soapsuds enemas today and begin bowel cleanse orally. Continue regular diet. Will follow. Current Visit: Yes Status: Acute Code(s): K56.41 - FECAL IMPACTION SNOMED Code(s): 11784224
[2024-03-21] MEDS: LACTULOSE 20 GM/30 ML CUP PO SCH (11:29)
[2024-03-21 15:32] LABS: African American GFR (CKD) >90 (>60 ml/min/1.73 sqM); Anion Gap 10 mmol/L; Blood Urea Nitrogen 17 mg/dL (9-20); Calcium 8.4 mg/dL (8.4-10.2); Carbon Dioxide 20 mmol/L (22-30); Chloride 110 mmol/L (98-107); Non-African American GFR(CKD) >90 (>60 ml/min/1.73 sqM); Sodium 140 mmol/L (137-145)
[2024-03-21 15:51] LABS: Glucose 124 mg/dL (74-99); Magnesium 2.1 mg/dL (1.6-2.3); Potassium 4.9 mmol/L (3.5-5.1)
--- NOTE | 2024-03-21 16:19 | US ---
EXAMINATION TYPE: US venous doppler duplex LE BI DATE OF EXAM: 03/21/2024 3:53 PM COMPARISON: NONE CLINICAL INDICATION: Male, 58 years old with history of Fever; Quadriplegic with cerebral palsy, atro phied legs that are contracted and rigid, no swelling, no pain, negtive d-dimer SIDE PERFORMED: Bilateral TECHNIQUE: The lower extremity deep venous system is examined utilizing real time linear array sonog aixa with graded compression, doppler sonography and color-flow sonography. VESSELS IMAGED: Common Femoral Vein Deep Femoral Vein Greater Saphenous Vein * Femoral Vein Popliteal Vein Small Saphenous Vein * Proximal Calf Veins (* superficial vessels) Cannot not perform most of the images needed due to nature of patients rigid, contracted legs Right Leg: Right CFV and POP veins appear patent, unable to view FV due to leg contracted inward to the left Left Leg: Left CFV, prox FV, POP veins and PTV'S appear patent. Again, limited due to the rigid natu re of patients legs. Grayscale, color doppler, spectral doppler imaging performed of the deep veins of the lower extremiti es. There is normal flow, compressibility, vascular waveforms. IMPRESSION: No evidence for deep vein thrombosis within the visualized structures.
[2024-03-22 07:07] LABS: African American GFR (CKD) >90 (>60 ml/min/1.73 sqM); Anion Gap 6 mmol/L; Blood Urea Nitrogen 20 mg/dL (9-20); Calcium 8.3 mg/dL (8.4-10.2); Carbon Dioxide 27 mmol/L (22-30); Chloride 108 mmol/L (98-107); Glucose 124 mg/dL (74-99); Non-African American GFR(CKD) >90 (>60 ml/min/1.73 sqM); Potassium 3.3 mmol/L (3.5-5.1); Sodium 141 mmol/L (137-145)
[2024-03-22] MEDS: POTASSIUM CHLORIDE ER 20 MEQ TAB.ER PO STA (08:27)
[2024-03-22 09:07] LABS: HGB 12.8 gm/dL (13.0-17.5); Hypochromasia Slight; MCH 26.5 pg (25.0-35.0); MCHC 31.2 g/dL (31.0-37.0); Mean Platelet Volume 9.8; Platelet Count 172 k/uL (150-450); RBC 4.82 m/uL (4.30-5.90); RDW 13.9 % (11.5-15.5); WBC 7.2 k/uL (3.8-10.6)
--- NOTE | 2024-03-22 10:38 | P.PN ---
Subjective Progress Note Date: 03/22/24 58 year old M with PMH of cerebral palsy presents to the ED for fever, lethargy and poor oral intake. In the ED he underwent extensive evaluation. BP 123/85, HR 110, T 98.2F, RR 16, 97% on RA. His Tmax went up to 101.2F. CBC, Coag panel, CMP significant for WBC 22.2, K 2.9, Cl 109, Cr 0.38, glu 129, Ca 8.0, total protein 6, alb 3.1. Troponin 0.023, 0.02. Mag 2.1. UA negative for LE or nitrite. Flu/RSV/COVID negative. CXR no acute findings. CT AP showed fecal impaction. Patient was started on Zosyn IV and admitted for further workup and management. Surgery evaluated, started on Lactulose and soap suds enema. Blood culture came back positive for presumptive MSSA. Antibiotics switched to Cefzolin and ID consulted for further management. 03/22 Patient was seen and examined. Discussed with sister. She reports improvement in his oral intake and lethargy. Basically back to normal. Multiple bowel movements overnight. Venous duplex negative for DVT. Maintained of Cefzolin 2g IV TID and ID consulted. CBC Hg 12.8. BMP K 3.3, Cl 108, Cr 0.51, glu 124, Ca 8.3. Troponn 0.020. General: non toxic, no distress, appears at stated age Derm: warm, dry Head: atraumatic, normocephalic, symmetric Eyes: EOMI, no lid lag, anicteric sclera Mouth: no lip lesion, mucus membranes moist Cardiovascular: Good distal perfusion in all 4 extremities Lungs: Breathing comfortably, no accessory muscle use Ext: no gross muscle atrophy, no edema, all 4 extremity contractures Psych: Alert, oriented, appropriate affect Sepsis due to Gram positive bacteremia: Initial BCx presumptive MSSA. Swtich antibiotics to Cefzolin 2g IV TID (D1). Repeat BCx tomorrow. Telemetry monitoring. NS at 75 cc/hr. Obtain Echo. Consult ID. Fecal impaction: Surgery note reviewed, soft stool, enema + lactulose. Hypokalemia: KCl 60 meq PO x 1 today. Obtain Mag. Repeat BMP tomorrow. CODE STATUS: FULL CODE DVT Prophylaxis: Lovenox GI Prophylaxis: Designated medical POA if patient is not able to make medical decisions for themselves: I have reviewed the following bank consultant notes: Surgery note. I have reviewed the results of the following tests: BCx. BMP. I have ordered the following tests: BCx repeated. I have discussed the care of this patient with the following independent historian: I have independently interpreted the following test below: I have discussed the management of this patient with the following physician: Objective - Vital Signs Vital signs: Vital Signs Temp 98.2 F 03/22/24 07:00 Pulse 67 03/22/24 07:00 Resp 17 03/22/24 07:00 BP 133/82 03/22/24 07:00 Pulse Ox 100 03/22/24 07:00 FiO2 Intake & Output 03/21/24 03/22/24 03/22/24 18:59 06:59 18:59 Intake Total 118 Balance 118 Intake: Oral 118 Other: # Voids 1 # Bowel Movements 5 1 1 - Labs CBC & Chem 7: 03/22/24 06:25 03/22/24 06:25 Labs: Abnormal Lab Results - Last 24 Hours (Table) 03/21/24 03/22/24 03/22/24 Range/Units 15:06 06:25 06:25 Hgb 12.8 L (13.0-17.5) gm/dL Potassium 3.3 L (3.5-5.1) mmol/L Chloride 110 H 108 H (98-107) mmol/L Carbon Dioxide 20 L (22-30) mmol/L Creatinine 0.44 L 0.51 L (0.66-1.25) mg/dL Glucose 124 H 124 H (74-99) mg/dL Calcium 8.3 L (8.4-10.2) mg/dL Microbiology - Last 24 Hours (Table) 03/20/24 21:15 Blood Culture Gram Stain - Preliminary Blood 03/20/24 21:30 Blood Culture Gram Stain - Preliminary Blood Blood Culture - Preliminary Molecular ID
--- NOTE | 2024-03-22 15:10 | P.PN ---
Subjective Progress Note Date: 03/22/24 CHIEF COMPLAINT: Fecal impaction HISTORY OF PRESENT ILLNESS: Patient having bowel movements after enemas and laxatives. He is tolerating diet. Family at bedside reporting that his abdomen is a little less distended. He denies any pain. Fever 103.5 this afternoon. WBC down from 22.2-7.2 patient with positive blood cultures with presumptive Staph aureus. Infectious disease now on consult PHYSICAL EXAM: VITAL SIGNS: Reviewed. GENERAL: no acute distress. ABDOMEN: Soft. Nondistended. Nontender. NEUROLOGIC: awake and alert ASSESSMENT: 1. Fecal impaction 2. Bacteremia 3. Cerebral palsy history PLAN: -Continue lactulose twice a day -Continue regular diet Physician Crack Off Person note has been reviewed by physician. Signing provider agrees with the documented findings, assessment, and plan of care. I have personally seen and examined the patient, reviewed the TALENT DIRECTOR /PAs history, exam and MDM and agree with the assessment and plan as written. Based on total visit time, I have performed more than 50% of the visit. As above: Patient is distended this afternoon. Still with high fevers. Bacteremia noted. He did have multiple stools. Continue lactulose. Repeat abdominal x-rays tomorrow. Continue diet for now. Objective - Vital Signs Vital signs: Vital Signs Temp 103.5 F H 03/22/24 14:28 Pulse 90 03/22/24 14:28 Resp 17 03/22/24 14:28 BP 154/75 03/22/24 14:28 Pulse Ox 98 03/22/24 14:28 FiO2 Intake & Output 03/21/24 03/22/24 03/22/24 18:59 06:59 18:59 Intake Total 118 Balance 118 Intake: Oral 118 Other: # Voids 1 # Bowel Movements 5 1 1 - Labs CBC & Chem 7: 03/22/24 06:25 03/22/24 06:25 Labs: Abnormal Lab Results - Last 24 Hours (Table) 03/21/24 03/22/24 03/22/24 Range/Units 15:06 06:25 06:25 Hgb 12.8 L (13.0-17.5) gm/dL Potassium 3.3 L (3.5-5.1) mmol/L Chloride 110 H 108 H (98-107) mmol/L Carbon Dioxide 20 L (22-30) mmol/L Creatinine 0.44 L 0.51 L (0.66-1.25) mg/dL Glucose 124 H 124 H (74-99) mg/dL Calcium 8.3 L (8.4-10.2) mg/dL Microbiology - Last 24 Hours (Table) 03/20/24 21:15 Blood Culture Gram Stain - Preliminary Blood Blood Culture - Preliminary Presumptive Staph aureus 03/20/24 21:30 Blood Culture Gram Stain - Preliminary Blood Blood Culture - Preliminary Presumptive Staph aureus Molecular ID
[2024-03-22] MEDS: ALPRAZolam 0.25 MG TAB PO STA (18:21)
[2024-03-22] MEDS: ZINC OXIDE PASTE (Z-GUARD) 1 APPLIC TOPICAL SCH (21:12)
[2024-03-23] MEDS: ACETAMINOPHEN IV (For NPO) 1,000 MG in EMPTY BAG 1 BAG IVPB ONE ×2 (02:50→18:17)
[2024-03-23 08:04] LABS: African American GFR (CKD) >90 (>60 ml/min/1.73 sqM); Anion Gap 16 mmol/L; Blood Urea Nitrogen 11 mg/dL (9-20); Carbon Dioxide 22 mmol/L (22-30); Chloride 105 mmol/L (98-107); Glucose 92 mg/dL (74-99); Non-African American GFR(CKD) >90 (>60 ml/min/1.73 sqM); Potassium 3.6 mmol/L (3.5-5.1); Sodium 143 mmol/L (137-145)
[2024-03-23] MEDS: ONDANSETRON 4 MG/2 ML VIAL IVP PRN (08:21)
--- NOTE | 2024-03-23 08:36 | XR ---
EXAMINATION TYPE: XR abdomen 2V DATE OF EXAM: 03/23/2024 COMPARISON: 04/21/2013 INDICATION: Constipation TECHNIQUE: Single view abdomen supine view FINDINGS: There is a normal bowel gas pattern. No significant fecal debris retention is evident. There is fecal debris within the rectum and descending colon. Prominence of the air-filled colon is present. Psoas margins are normal. No organomegaly is present. Fixation rods and plate and screws are present within the thoracic and lumbar spine IMPRESSION: 1. Mild fecal debris within the ascending colon and at the rectum. Significant fecal retention is not evident. However a small impaction at the rectum is not excluded. Clinical correlation recommended.
--- NOTE | 2024-03-23 09:13 | P.CONS ---
History of Present Illness - Reason for Consult Consult date: 03/22/24 Bacteremia Requesting physician: Vero Haro - Chief Complaint Fever lethargy decreased appetite x few days - History of Present Illness Patient is a 58-year-old -[place] Island[place] male past medical history significant for cerebral palsy spastic quadriplegia microcephaly seizure disorder chronically dislocated right hip patient has been brought into the hospital few days ago for evaluation of lethargy apparently the patient was more lethargic for 2 days before the patient was brought to the hospital and the patient was feeling hot however the temperature taken at home was normal patient also have a decreased appetite and apparently the patient did have constipation with no bowel movement for 3 days with the symptoms the patient has been evaluated on presentation to the hospital patient did have a low-grade fever 100.5 and did have a temperature of 103.5 F this afternoon patient was tachycardic on admission to the hospital subsequently resolved patient was not hypotensive or hypoxic and no need for supplemental oxygen did have white count of 22.2 on ad mission and repeat is down to 7.2 creatinine 0.38 liver isms are normal urine has been negative influenza RSV COVID testing was negative patient did have a chest x-ray no evidence for acute pulmonary process CT of abdominal pelvis findings felt to reflect fecal impaction venous Doppler no evidence for DVT patient did have blood cultures are educated positive with MSSA patient antibiotic has been adjusted to cefazolin infectious disease was consulted for further management of antibiotic therapy most information has been obtained from the family at the bedside as the patient cannot provide any history Review of Systems Positive points has been mentioned in HPI complete review could not be obtained because of his underlying mental status Past Medical History Additional Past Medical History / Comment(s): Spastic quadriplegia, cerebtal palsy, microcephaly, seizur disorder, nystagmus, strabismus. Chronically dislocated right hip (monitored by [facility], [facility]) History of Any Multi-Drug Resistant Organisms: None Reported Additional Past Surgical History / Comment(s): Heelcord and hamstring lengthening (1971), right femur varus derotation with internal fixation (1975), Internal fixation removal (1978) Past Psychological History: No Psychological Hx Reported Smoking Status: Never smoker Past Alcohol Use History: None Reported Past Drug Use History: None Reported Medications and Allergies Home Medications Medication Instructions Recorded Confirmed Type ALPRAZolam [Xanax] 0.25 mg PO BID PRN 03/20/24 03/20/24 History Ascorbic Acid [Vitamin C] 500 mg PO DAILY 03/20/24 03/20/24 History Famotidine [Pepcid] 20 mg PO BID 03/20/24 03/20/24 History Omeprazole 20 mg PO DAILY 03/20/24 03/20/24 History polyethylene glycoL 3350 [Miralax] 17 gm PO DAILY 03/20/24 03/20/24 History tiZANidine [Zanaflex] 4 mg PO TID 03/20/24 03/20/24 History Allergies Allergy/AdvReac Type Severity Reaction Status Date / Time No Known Allergies Allergy Verified 03/20/24 19:42 Physical Exam Vitals: Vital Signs Temp Pulse Resp BP Pulse Ox 03/22/24 07:00 98.2 F 67 17 133/82 100 03/22/24 02:00 100.6 F H 64 16 110/62 98 03/21/24 20:00 100.8 F H 89 12 95/61 98 03/21/24 13:53 99.9 F H Intake and Output 03/21/24 03/22/24 03/22/24 22:59 06:59 14:59 Intake Total 118 Balance 118 Intake: Oral 118 Other: # Voids 1 # Bowel Movements 1 1 1 GENERAL DESCRIPTION: Middle-aged male lying in bed, no distress. No tachypnea or accessory muscle of respiration use. HEENT: Shows Pallor , no scleral icterus. Oral mucous membrane is dry. No pharyngeal erythema or thrush NECK: Trachea central, no thyromegaly. LUNGS: Unlabored breathing. Clear to auscultation anteriorly. No wheeze or crackle. HEART: S1, S2, regular rate and rhythm. No loud murmur ABDOMEN: Soft, no tenderness , EXTREMITIES: No edema of feet. SKIN: Stage II sacral pressure ulcer but no cellulitis NEUROLOGICAL: The patient is awake, orientation cannot be terminated because of underlying mental status Results CBC & Chem 7: 03/22/24 06:25 03/23/24 07:07 Labs: Abnormal Lab Results - Last 24 Hours (Table) 03/21/24 03/22/24 03/22/24 Range/Units 15:06 06:25 06:25 Hgb 12.8 L (13.0-17.5) gm/dL Potassium 3.3 L (3.5-5.1) mmol/L Chloride 110 H 108 H (98-107) mmol/L Carbon Dioxide 20 L (22-30) mmol/L Creatinine 0.44 L 0.51 L (0.66-1.25) mg/dL Glucose 124 H 124 H (74-99) mg/dL Calcium 8.3 L (8.4-10.2) mg/dL Microbiology - Last 24 Hours (Table) 03/20/24 21:15 Blood Culture Gram Stain - Preliminary Blood Blood Culture - Preliminary Presumptive Staph aureus 03/20/24 21:30 Blood Culture Gram Stain - Preliminary Blood Blood Culture - Preliminary Presumptive Staph aureus Molecular ID Assessment and Plan (1) Sepsis Current Visit: Yes Status: Acute Code(s): A41.9 - SEPSIS, UNSPECIFIED OR GANISM SNOMED Code(s): 60868237 (2) MSSA bacteremia Current Visit: Yes Status: Acute Code(s): R78.81 - BACTEREMIA; B95.61 - METHICILLIN SUSCEP STAPH INFCT CAUSING DIS CLASSD ELSWHR SNOMED Code(s): 571146808 Plan: 1patient presented to hospital with sepsis in this patient who did have fever tachycardia elevated white count presented with the weakness lethargy noticed to have fecal impaction question of possible abdominal source 2-patient also have MSSA bacteremia which is usually of a skin and soft tissue origin currently the patient do not have any significant skin breakdown except a stage II to the sacral area patient did have a history of chronic dislocation of the right hip that may need to be investigated further 3-blood culture repeated document clearance of his bacteremia 4-cefazolin 2 g great hour to continue Family at the bedside multiple question concern answered We will follow on clinical condition and cultures to further adjust medication if needed Thank you for this consultation we will follow the patient along with you Dictation was produced using [employer] dictation software. please excuse any grammatical, word or spelling errors.
[2024-03-23] MEDS: PANTOPRAZOLE 40 MG/10 ML VIAL IVP SCH (12:13)
--- NOTE | 2024-03-23 15:01 | P.PN ---
Subjective Progress Note Date: 03/23/24 Principal diagnosis: Reason for follow-up is MSSA bacteremia Patient is a 58-year-old -[place] male past medical history significant for cerebral palsy spastic quadriplegia microcephaly seizure disorder chronically dislocated right hip patient has been brought into the hospital few days ago for evaluation of lethargy decreased oral intake patient was noticed to be febrile and did have a positive blood culture with MSSA prompting this consultation CT abdominal pelvis with fecal impaction. On today's evaluation that is 03/23/2024,the patient has been spiking fever last temperature has been 100.7 this morning patient overall seems to be doing slightly better patient not tachycardic or hypotensive no vomiting has been reported did have small bowel movement as reported by the family at the bedside. Patient did have a creatinine 0.44 blood culture with MSSA repeat blood culture pending Objective - Vital Signs Vital signs: Vital Signs Temp 100.7 F H 03/23/24 07:00 Pulse 70 03/23/24 07:00 Resp 16 03/23/24 07:00 BP 132/86 03/23/24 07:00 Pulse Ox 96 03/23/24 07:00 FiO2 Intake & Output 03/22/24 03/23/24 03/23/24 18:59 06:59 18:59 Intake Total 118 Balance 118 Intake: Oral 118 Other: # Voids 2 1 # Bowel Movements 1 - Exam GENERAL DESCRIPTION: Middle-age male lying in bed in no distress RESPIRATORY SYSTEM: Unlabored breathing , decreased breath sounds at bases HEART: S1 S2 regular rate and rhythm , ABDOMEN: Soft , no tenderness EXTREMITIES: No swelling redness or tenderness was noticed on the spine or bilateral hip area - Labs CBC & Chem 7: 03/22/24 06:25 03/23/24 07:07 Labs: Abnormal Lab Results - Last 24 Hours (Table) 03/23/24 Range/Units 07:07 Creatinine 0.44 L (0.66-1.25) mg/dL Microbiology - Last 24 Hours (Table) 03/20/24 21:15 Blood Culture Gram Stain - Preliminary Blood Blood Culture - Preliminary Presumptive Staph aureus Coagulase Negative Staph 03/20/24 21:30 Blood Culture Gram Stain - Preliminary Blood Blood Culture - Preliminary Presumptive Staph aureus Molecular ID Assessment and Plan (1) Sepsis Current Visit: Yes Status: Acute Code(s): A41.9 - SEPSIS, UNSPECIFIED ORGANISM SNOMED Code(s): 57656168 (2) MSSA bacteremia Current Visit: Yes Status: Acute Code(s): R78.81 - BACTEREMIA; B95.61 - METHICILLIN SUSCEP STAPH INFCT CAUSING DIS CLASSD ELSWHR SNOMED Code(s): 325130155 Plan: 1patient presented to hospital with sepsis in this patient who did have fever tachycardia elevated white count presented with the weakness lethargy noticed to have fecal impaction question of possible abdominal source 2-patient also have MSSA bacteremia which is usually of a skin and soft tissue origin currently the patient do not have any significant skin breakdown except a stage II to the sacral area patient did have a history of chronic dislocation of the right hip however there was no signs of any swelling redness warmth or wound at the bilateral hip or the spine area 3-blood culture has been repeated document clearance of his bacteremia 4-we will obtain tagged WBC scan for possible evaluation of the source of infection 5continue cefazolin 2 g every 8 hours Family the bedside multiple questions answered, also discussed with the admitting team Dictation was produced using [employer] dictation software. please excuse any grammatical, word or spelling errors. Time with Patient: Greater than 30
--- NOTE | 2024-03-23 15:45 | P.PN ---
Subjective Progress Note Date: 03/23/24 CHIEF COMPLAINT: Fecal impaction HISTORY OF PRESENT ILLNESS: Patient having bowel movements. Denies abdominal pain. Patient did have nausea this morning abdominal x-ray reports mild fecal debris within the ascending colon and at the rectum. Significant fecal retention is not evident. However small impaction of the rectum is not excluded. Patient continues to have fevers. WBC from yesterday 7.2. Blood cultures positive for MSSA. Infectious disease following and ordered WBC scan. PHYSICAL EXAM: VITAL SIGNS: Reviewed. GENERAL: no acute distress. ABDOMEN: Soft. Nondistended. Nontender. Rectal exam: liquidy stool noted. no stool ball noted NEUROLOGIC: awake and alert ASSESSMENT: 1. Fecal impaction 2. MSSA Bacteremia 3. Cerebral palsy history PLAN: -Continue lactulose twice a day -Continue regular diet -Antibiotics per infectious disease -IV Protonix added for nausea Physician Belt Cutter note has been reviewed by physician. Signing provider agrees with the documented findings, assessment, and plan of care. I have personally seen and examined the patient, reviewed the PERIOPERATIVE MANAGER /PAs history, exam and MDM and agree with the assessment and plan as written. Based on total visit time, I have performed more than 50% of the visit. As above: Patient denies abdominal pain. Nontender and nondistended on exam. Abdominal x-rays noted. Patient had further liquid stools. Will sign off. Please reconsult if needed. Objective - Vital Signs Vital signs: Vital Signs Temp 102.8 F H 03/23/24 15:00 Pulse 89 03/23/24 15:00 Resp 16 03/23/24 15:00 BP 147/78 03/23/24 15:00 Pulse Ox 96 03/23/24 15:00 FiO2 Intake & Output 03/22/24 03/23/24 03/23/24 18:59 06:59 18:59 Intake Total 118 Balance 118 Intake: Oral 118 Other: # Voids 2 1 2 # Bowel Movements 1 - Labs CBC & Chem 7: 03/22/24 06:25 03/23/24 07:07 Labs: Abnormal Lab Results - Last 24 Hours (Table) 03/23/24 Range/Units 07:07 Creatinine 0.44 L (0.66-1.25) mg/dL Microbiology - Last 24 Hours (Table) 03/20/24 21:15 Blood Culture Gram Stain - Final Blood Blood Culture - Final Staphylococcus aureus Coagulase Negative Stap 03/20/24 21:30 Blood Culture Gram Stain - Final Blood Blood Culture - Final Staphylococcus aureus Molecular ID
--- NOTE | 2024-03-23 17:53 | P.PN ---
Subjective Progress Note Date: 03/23/24 Subjective: Patient seen at bedside. No significant overnight events. Patient had diarrhea and then a normal bowel movement overnight. Patient also spiked a fever of 100.7. Pertinent positives and negatives discussed above, a complete review of systems was preformed and all the other sytems were negative. Vitals Signs Reveiwed. General: non toxic, no distress, appears at stated age, normal weight Derm: no unusual rashes/lesions, warm Head: atraumatic, normocephalic, symmetric Eyes: EOMI, no lid lag, anicteric sclera, pupils equal round reactive to light ENT: Nose and ears atraumatic Neck: No cervical lymphadenopathy, trachea midline, supple Mouth: no lip lesion, mucus membranes moist Cardiovascular: S1S2 reg, no murmur, positive dorsalis pedis pulse bilateral, no edema Lungs: Decreased air entry bilaterally, no rhonchi, no rales, no accessory muscle use Abdominal: soft, nontender to palpation, no guarding Ext: muscle strength 5 out of 5 in all 4 extremities grossly, no gross muscle a trophy, no contractures, Neuro: CN II-XI grossly intact, no gross focal neuro deficits Psych: Alert, oriented, appropriate affect Data Reveiwed Today: Patient Labs: Sodium 143, potassium 3.6, BUN 11, creatinine 0.44, and glucose 92. Imaging: Abdomen x-ray: No significant fecal retention evident. However small impaction at the rectum is not excluded. Assesment and Plan: Sepsis due to gram-positive bacteremia: History of cerebral palsy History of hip fluid placement as well as extensive back surgery for scoliosis Stage I decubitus ulcer sacral, present on admission Initial blood cultures came back as Staphylococcus aureus. Continue cefazolin 2 g 3 times daily (day 2) Repeating blood cultures pending Continue to monitor telemetry NS at 75 cc/h Pending echo Ordered a tagged WBC scan for possible evaluation of the source of infection. -Discussed management with ID -Local wound care for decubitus ulcer Fecal impaction: Continue lactulose 30 g oral twice a day Continue regular diet General surgery note reviewed, IV Protonix added for nausea. Hypokalemia: Resolved Leukocytosis, resolved F NS at 75 cc/h E none N regular diet A uses wheelchair at baseline DVT ppx: Lovenox 40 mg SQ daily Anticipated discharge place: Pending clinical course Anticipated discharge time: Pending clinical course I have seen and evaluated the patient today. Discussed with the resident and agree with the residents finding and plan as documented in the resident's note. Changes highlighted in blue font. Objective - Vital Signs Vital signs: Vital Signs Temp 101.1 F H 03/23/24 04:26 Pulse 92 03/22/24 19:43 Resp 13 03/22/24 19:43 BP 179/96 03/22/24 19:43 Pulse Ox 97 03/22/24 19:43 FiO2 Intake & Output 03/22/24 03/23/24 03/23/24 18:59 06:59 18:59 Intake Total 118 Balance 118 Intake: Oral 118 Other: # Voids 2 1 # Bowel Movements 1 - Labs CBC & Chem 7: 03/22/24 06:25 03/23/24 07:07 Labs: Abnormal Lab Results - Last 24 Hours (Table) 03/22/24 03/23/24 Range/Units 06:25 07:07 Hgb 12.8 L (13.0-17.5) gm/dL Creatinine 0.44 L (0.66-1.25) mg/dL Microbiology - Last 24 Hours (Table) 03/20/24 21:15 Blood Culture Gram Stain - Preliminary Blood Blood Culture - Preliminary Presumptive Staph aureus 03/20/24 21:30 Blood Culture Gram Stain - Preliminary Blood Blood Culture - Preliminary Presumptive Staph aureus Molecular ID
[2024-03-24] MEDS: IBUPROFEN 400 MG TAB PO PRN (03:06)
[2024-03-24] MEDS: ACETAMINOPHEN IV (For NPO) 1,000 MG in EMPTY BAG 1 BAG IVPB ONE (05:02)
[2024-03-24 09:54] LABS: Basophils % (A) 0 %; Eosinophils # (A) 0.2 k/uL (0-0.7); Eosinophils % (A) 1 %; HCT 40.8 % (39.0-53.0); HGB 12.5 gm/dL (13.0-17.5); Hypochromasia Slight; Lymphocytes # (A) 1.1 k/uL (1.0-4.8); Lymphocytes % (A) 7 %; MCH 25.6 pg (25.0-35.0); MCHC 30.5 g/dL (31.0-37.0); Mean Platelet Volume 9.8; Monocytes % (A) 6 %; Neutrophils # (A) 13.5 k/uL (1.3-7.7); Neutrophils % (A) 83 %; Platelet Count 190 k/uL (150-450); RBC 4.86 m/uL (4.30-5.90); RDW 14.1 % (11.5-15.5); WBC 16.2 k/uL (3.8-10.6)
[2024-03-24 10:25] LABS: African American GFR (CKD) >90 (>60 ml/min/1.73 sqM); Anion Gap 8 mmol/L; Blood Urea Nitrogen 11 mg/dL (9-20); Calcium 7.9 mg/dL (8.4-10.2); Carbon Dioxide 21 mmol/L (22-30); Chloride 109 mmol/L (98-107); Glucose 91 mg/dL (74-99); Non-African American GFR(CKD) >90 (>60 ml/min/1.73 sqM); Sodium 138 mmol/L (137-145)
[2024-03-24 10:26] LABS: Potassium 4.5 mmol/L (3.5-5.1)
[2024-03-24 10:28] LABS: C Reactive Protein 7.3 mg/dL (<1.0)
--- NOTE | 2024-03-24 10:35 | CA ---
Transthoracic Echo Report Name: Marc Lomas Age: 58 Gender: M : 1965 Exam Date: 03/23/2024 14:07 Exam Location: [facility] Ht (in): 60 Wt (lb): 120 Ordering Physician: Vero Haro MD Attending/Referring Phys: Director Of Development And Marketing Kellen Meng RDCS Procedure CPT: Indications: sepsis, bacteremia Cardiac Hx: Cerebral Palsy Technical Quality: Technically difficult study Contrast 1: Total Dose (mL): Contrast 2: Total Dose (mL): MEASUREMENTS (Male / Female) Normal Values 2D ECHO LV Diastolic Diameter PLAX 3.8 cm 4.2 - 5.9 / 3.9 - 5.3 cm LV Systolic Diameter PLAX 2.8 cm IVS Diastolic Thickness 1.5 cm 0.6 - 1.0 / 0.6 - 0.9 cm LVPW Diastolic Thickness 1.7 cm 0.6 - 1.0 / 0.6 - 0.9 cm LV Relative Wall Thickness 0.8 RV Internal Dim ED PLAX 3.4 cm LA Systolic Diameter LX 3.9 cm 3.0 - 4.0 / 2.7 - 3.8 cm LV Diastolic Volume MOD BP 36.2 cm??? 67 - 155 / 56 - 104 cm??? LV Systolic Volume MOD BP 20.2 cm??? 22 - 58 / 19 - 49 cm??? LV Ejection Fraction MOD BP 44.4 % >= 55 % LV Cardiac Index MOD BP 800.5 cm???/min???m??? LV Diastolic Volume MOD 4C 46.9 cm??? LV Systolic Volume MOD 4C 23.2 cm??? LV Ejection Fraction MOD 4C 50.5 % LV Cardiac Index MOD 4C 1179.1 cm???/min???m??? LV Diastolic Length 4C 7.0 cm LV Systolic Length 4C 6.0 cm LV Diastolic Volume MOD 2C 23.5 cm??? LV Systolic Volume MOD 2C 8.8 cm??? LV Ejection Fraction MOD 2C 62.4 % LV Cardiac Index MOD 2C 728.9 cm???/min???m??? LV Diastolic Length 2C 5.7 cm LV Systolic Length 2C 3.0 cm M-MODE Aortic Root Diameter MM 3.0 cm LA Systolic Diameter MM 4.3 cm LA Ao Ratio MM 1.4 AV Cusp Separation MM 2.1 cm DOPPLER AV Peak Velocity 161.1 cm/s AV Peak Gradient 10.4 mmHg AV Mean Velocity 118.6 cm/s AV Mean Gradient 6.2 mmHg AV Velocity Time Integral 33.4 cm LVOT Peak Velocity 141.2 cm/s LVOT Peak Gradient 8.0 mmHg LVOT Velocity Time Integral 31.7 cm Mitral E Point Velocity 93.9 cm/s Mitral A Point Velocity 98.8 cm/s Mitral E to A Ratio 1.0 MV Deceleration Time 178.1 ms MV E' Velocity 7.5 cm/s Mitral E to MV E' Ratio 12.5 TR Peak Velocity 323.3 cm/s TR Peak Gradient 41.8 mmHg Right Atrial Pressure 8.0 mmHg Pulmonary Artery Systolic Pressu 49.8 mmHg Right Ventricular Systolic Press 49.8 mmHg FINDINGS Left Ventricle Left ventricular ejection fraction is estimated at 55-60 %. Moderately increased septal wall thickness. No obvious regional wall motion abnormalities. Left ventricular cavity size normal. Right Ventricle Mild to moderate right ventricular dilatation. Moderate pulmonary hypertension. Right Atrium Mild right atrial dilatation. Left Atrium Mild left atrial dilatation. Mitral Valve Structurally normal mitral valve. Trace to mild mitral regurgitation. Aortic Valve Trileaflet aortic valve. No aortic valve stenosis or regurgitation. Tricuspid Valve Structurally normal tricuspid valve. Mild tricuspid regurgitation. Pulmonic Valve Structurally normal pulmonic valve. Trace pulmonic regurgitation. No pulmonic regurgitation. Pericardium No pericardial or pleural effusion. Aorta Normal size aortic root and proximal ascending aorta. CONCLUSIONS Left ventricular ejection fraction 55-60% Moderately increased left ventricle thickness Mild to moderate right ventricular dilation RVSP 49 Trace to mild mitral regurgitation Mild tricuspid regurgitation Previewed by: Dr. Tushar Gomez DO (Electronically Signed) Final Date: 24 March 2024 10:34
--- NOTE | 2024-03-24 12:22 | P.PN ---
Subjective Progress Note Date: 03/24/24 Principal diagnosis: Reason for follow-up is MSSA bacteremia Patient is a 58-year-old -[place] male past medical history significant for cerebral palsy spastic quadriplegia microcephaly seizure disorder chronically dislocated right hip patient has been brought into the hospital few days ago for evaluation of lethargy decreased oral intake patient was noticed to be febrile and did have a positive blood culture with MSSA prompting this consultation CT abdominal pelvis with fecal impaction. On today's evaluation that is 03/24/2024, the patient did have a fever of 101.1 at 2 AM the patient is afebrile this morning patient is breathing comfortably he is currently on room air and in no distress per the family the bedside seems to be doing better. Patient white count is 16.2, creatinine 0.31 Objective - Vital Signs Vital signs: Vital Signs Temp 98.8 F 03/24/24 07:37 Pulse 93 03/24/24 07:37 Resp 16 03/24/24 07:37 BP 129/71 03/24/24 07:37 Pulse Ox 93 L 03/24/24 07:37 FiO2 Intake & Output 03/23/24 03/24/24 03/24/24 18:59 06:59 18:59 Intake Total 118 236 Balance 118 236 Intake: Oral 118 236 Other: # Voids 2 3 # Bowel Movements 1 - Exam GENERAL DESCRIPTION: Middle-age male lying in bed in no distress RESPIRATORY SYSTEM: Unlabored breathing , decreased breath sounds at bases HEART: S1 S2 regular rate and rhythm , ABDOMEN: Soft , no tenderness EXTREMITIES: No swelling redness or tenderness was noticed on the spine or bilateral hip area - Labs CBC & Chem 7: 03/24/24 09:30 03/24/24 09:30 Labs: Abnormal Lab Results - Last 24 Hours (Table) 03/24/24 Range/Units 09:30 WBC 16.2 H (3.8-10.6) k/uL Hgb 12.5 L (13.0-17.5) gm/dL MCHC 30.5 L (31.0-37.0) g/dL Neutrophils # 13.5 H (1.3-7.7) k/uL Microbiology - Last 24 Hours (Table) 03/23/24 07:07 Blood Culture Gram Stain - Preliminary Blood 03/20/24 21:15 Blood Culture Gram Stain - Final Blood Blood Culture - Final Staphylococcus aureus Coagulase Negative Staph 03/20/24 21:30 Blood Culture Gram Stain - Final Blood Blood Culture - Final Staphylococcus aureus Molecular ID Assessment and Plan (1) Sepsis Current Visit: Yes Status: Acute Code(s): A41.9 - SEPSIS, UNSPECIFIED ORGANISM SNOMED Code(s): 92520671 (2) MSSA bacteremia Current Visit: Yes Status: Acute Code(s): R78.81 - BACTEREMIA; B95.61 - METHICILLIN SUSCEP STAPH INFCT CAUSING DIS CLASSD ELSWHR SNOMED Code(s): 710711334 Plan: 1patient presented to hospital with sepsis in this patient who did have fever tachycardia elevated white count presented with the weakness lethargy noticed to have fecal impaction question of possible abdominal source 2-patient also have MSSA bacteremia which is usually of a skin and soft tissue origin currently the patient do not have any significant skin breakdown except a stage II to the sacral area patient did have a history of chronic dislocation of the right hip however there was no signs of any swelling redness warmth or wound at the bilateral hip or the spine area 3-blood culture repeat also coming positive concerning for possible endovascular or deep source 4- tagged WBC scan for possible evaluation of the source of infection could not be completed as the lab was not able to get enough blood 5I will discontinue cefazolin start the patient on Naficillin and add Flagyl Dictation was produced using [employer] dictation software. please excuse any grammatical, word or spelling errors. Time with Patient: Greater than 30
[2024-03-24] MEDS: metroNIDAZOLE 500 MG TAB PO SCH (15:35)
[2024-03-24 15:55] LABS: Erythrocyte Sedimentation Rate 61 mm/Hr (0-20)
[2024-03-24] MEDS: NAFCILLIN 2 GM in DEXTROSE 5% IN WATER 100 ML IVPB SCH (16:51)
--- NOTE | 2024-03-24 18:15 | P.PN ---
Subjective Progress Note Date: 03/24/24 Subjective: Patient seen at bedside. No significant overnight events. Patient's temperature has come down and is now 98.8 and other vitals are within normal limits. Pertinent positives and negatives discussed above, a complete review of systems was preformed and all the other sytems were negative. Vitals Signs Reveiwed. General: Contracted male, non toxic, no distress, appears at stated age, normal weight Derm: no unusual rashes/lesions, warm Head: atraumatic, normocephalic, symmetric Eyes: EOMI, no lid lag, anicteric sclera, pupils equal round reactive to light ENT: Nose and ears atraumatic Neck: No cervical lymphadenopathy, trachea midline, supple Mouth: no lip lesion, mucus membranes moist Cardiovascular: S1S2 reg, no murmur, positive dorsalis pedis pulse bilateral, no edema Lungs: CTA bilateral, no rhonchi, no rales, no accessory muscle use Abdominal: soft, nontender to palpation, no guarding Ext: Diffuse muscle atrophy with diffuse contractures Neuro: Severely limited range of motion with diffuse contractures Psych: Patient is only oriented to self and answers some questions Data Reveiwed Today: Patient Labs: Sodium 138, potassium 4.5, chloride 109, bicarb 21, BUN 11, creat inine 1.31, calcium 7.9, WBC 16.2, hemoglobin 12.5, and MCV 84. Imaging: Pending results of tagged WBC scan and WEN Assesment: 58-year-old male with a past medical history of cerebral palsy who presented to the ED by his family for complaints of lethargy and poor oral int alison. Patient was admitted for further workup of fecal impaction and bacteremia. Plan: Sepsis due to MSSA bacteremia: History of cerebral palsy History of hip fluid placement as well as extensive back surgery for scoliosis Stage I decubitus ulcer sacral, present on admission Initial blood cultures came back as Staphylococcus aureus. started nafcillin 2gm IVPB every 4 HR and discontinued cefazolin New blood cultures showed positive for MSSA, blood cultures again repeated Patient's temperature decreased to within normal limits for today. Continue to monitor telemetry NS at 75 cc/h Echo 55-60% EF, no valvular vegetation, due to persistent bacteremia, - ordered WEN ID ordered a tagged WBC scan for possible evaluation of the source of infection. (may be difficult as venous access is problem and pt may not tolerate being in CT for extended period per the sister) -Discussed management with ID and they agree with our care plan., Also started on Flagyl 500 3 times daily -Local wound care for decubitus ulcer Fecal impaction: Continue lactulose 30 g oral twice a day Continue regular diet General surgery note reviewed, IV Protonix added for nausea. Hypokalemia: Resolved Leukocytosis, resolved F NS at 75 cc/h E none N regular diet A uses wheelchair at baseline DVT ppx: Lovenox 40 mg SQ daily Anticipated discharge place: Pending clinical course Anticipated discharge time: Pending clinical course I have seen and evaluated the patient today. Discussed with the resident and agree with the residents finding and plan as documented in the resident's note. Changes highlighted in blue font. Patient is severely ill, prognosis guarded. Objective - Vital Signs Vital signs: Vital Signs Temp 98.8 F 03/24/24 07:37 Pulse 93 03/24/24 07:37 Resp 16 03/24/24 07:37 BP 129/71 03/24/24 07:37 Pulse Ox 93 L 03/24/24 07:37 FiO2 Intake & Output 03/23/24 03/24/24 03/24/24 18:59 06:59 18:59 Intake Total 118 236 Balance 118 236 Intake: Oral 118 236 Other: # Voids 2 3 # Bowel Movements 1 - Labs CBC & Chem 7: 03/24/24 09:30 03/24/24 09:30 Labs: Abnormal Lab Results - Last 24 Hours (Table) 03/23/24 Range/Units 07:07 Creatinine 0.44 L (0.66-1.25) mg/dL Microbiology - Last 24 Hours (Table) 03/23/24 07:07 Blood Culture Gram Stain - Preliminary Blood 03/20/24 21:15 Blood Culture Gram Stain - Final Blood Blood Culture - Final Staphylococcus aureus Coagulase Negative Staph 03/20/24 21:30 Blood Culture Gram Stain - Final Blood Blood Culture - Final Staphylococcus aureus Molecular ID
[2024-03-25] MEDS: ACETAMINOPHEN IV (For NPO) 1,000 MG in EMPTY BAG 1 BAG IVPB ONE (03:55)
[2024-03-25 05:26] LABS: ALT 34 U/L (4-49); AST 54 U/L (17-59); African American GFR (CKD) >90 (>60 ml/min/1.73 sqM); Albumin 2.7 g/dL (3.5-5.0); Albumin/Globulin Ratio 0.9; Alkaline Phosphatase 117 U/L (38-126); Anion Gap 6 mmol/L; Blood Urea Nitrogen 7 mg/dL (9-20); Calcium 7.7 mg/dL (8.4-10.2); Carbon Dioxide 30 mmol/L (22-30); Chloride 101 mmol/L (98-107); Globulin 2.9 g/dL; Glucose 99 mg/dL (74-99); Non-African American GFR(CKD) >90 (>60 ml/min/1.73 sqM); Sodium 137 mmol/L (137-145); Total Bilirubin 1.7 mg/dL (0.2-1.3); Total Protein 5.6 g/dL (6.3-8.2)
[2024-03-25 05:34] LABS: Potassium 2.4 mmol/L (3.5-5.1)
[2024-03-25] MEDS: POTASSIUM CHLORIDE ER 20 MEQ TAB.ER PO SCH (06:16)
[2024-03-25] MEDS: POTASSIUM CHLORIDE 10 MEQ in WATER FOR INJECTION 1 100ML.BAG IVPB SCH (06:44)
[2024-03-25 08:52] LABS: Basophils # (A) 0.07 X 10*3/uL (0.00-0.10); Basophils % (A) 0.6 %; Eosinophils # (A) 0.14 X 10*3/uL (0.04-0.35); Eosinophils % (A) 1.2 %; HGB 13.1 g/dL (13.0-17.0); Lymphocytes # (A) 1.83 X 10*3/uL (0.90-5.00); Lymphocytes % (A) 15.6 %; MCH 25.2 pg (27.0-32.0); Monocytes # (A) 1.26 X 10*3/uL (0.20-1.00); Monocytes % (A) 10.7 %; NRBC Per 100 WBC 0 X 10*3/uL (0.00-0.01); Neutrophils # (A) 8.31 X 10*3/uL (1.80-7.70); Neutrophils % (A) 70.9 %; Platelet Count 245 X 10*3/uL (140-440); RBC 5.19 X 10*6/uL (4.40-5.60); RDW 14.6 % (11.5-14.5); WBC 11.73 X 10*3/uL (4.50-10.00)
[2024-03-25 09:36] LABS: Magnesium 1.8 mg/dL (1.6-2.3); Potassium 3.5 mmol/L (3.5-5.1)
--- NOTE | 2024-03-25 12:46 | P.PN ---
Subjective Progress Note Date: 03/25/24 Principal diagnosis: Reason for follow-up is MSSA bacteremia Patient is a 58-year-old -[place] male past medical history significant for cerebral palsy spastic quadriplegia microcephaly seizure disorder chronically dislocated right hip patient has been brought into the hospital few days ago for evaluation of lethargy decreased oral intake patient was noticed to be febrile and did have a positive blood culture with MSSA prompting this consultation CT abdominal pelvis with fecal impaction. On today's evaluation that is 03/25/2024, Patient did spike a fever of 102.3 F last night however patient is afebrile this afternoon patient mention he is feeling better breathing comfortably on room air no vomiting or any change reported by the sister at the bedside. Patient white count is down to 11.73 creatinine 0.39 blood culture repeated yesterday currently pending Objective - Vital Signs Vital signs: Vital Signs Temp 98.6 F 03/25/24 07:53 Pulse 76 03/25/24 07:53 Resp 16 03/25/24 07:53 BP 183/98 03/25/24 07:53 Pulse Ox 98 03/25/24 07:53 FiO2 Intake & Output 03/24/24 03/25/24 03/25/24 18:59 06:59 18:59 Intake Total 118 476 Balance 118 476 Intake: Oral 118 476 Other: # Voids 3 3 # Bowel Movements 2 1 - Exam GENERAL DESCRIPTION: Middle-age male lying in bed in no distress RESPIRATORY SYSTEM: Unlabored breathing , decreased breath sounds at bases HEART: S1 S2 regular rate and rhythm , ABDOMEN: Soft , no tenderness EXTREMITIES: No swelling redness or tenderness was noticed on the spine or bilateral hip area - Labs CBC & Chem 7: 03/25/24 04:56 03/25/24 08:08 Labs: Abnormal Lab Results - Last 24 Hours (Table) 03/24/24 03/24/24 03/25/24 Range/Units 09:30 09:30 04:56 WBC (4.50-10.00) X 10*3/uL MCV (80.0-97.0) FL MCH (27.0-32.0) pg RDW (11.5-14.5) % Immature Gran # (0.00-0.04) X 10*3/uL Neutrophils # (1.80-7.70) X 10*3/uL Monocytes # (0.20-1.00) X 10*3/uL ESR 61 H (0-20) mm/Hr Potassium 2.4 L* (3.5-5.1) mmol/L BUN 7 L (9-20) mg/dL Creatinine 0.39 L (0.66-1.25) mg/dL Calcium 7.7 L (8.4-10.2) mg/dL Total Bilirubin 1.7 H (0.2-1.3) mg/dL Total Protein 5.6 L (6.3-8.2) g/dL Albumin 2.7 L (3.5-5.0) g/dL Procalcitonin 1.87 H (0.02-0.09) ng/mL 03/25/24 Range/Units 04:56 WBC 11.73 H (4.50-10.00) X 10*3/uL MCV 79.0 L (80.0-97.0) FL MCH 25.2 L (27.0-32.0) pg RDW 14.6 H (11.5-14.5) % Immature Gran # 0.12 H (0.00-0.04) X 10*3/uL Neutrophils # 8.31 H (1.80-7.70) X 10*3/uL Monocytes # 1.26 H (0.20-1.00) X 10*3/uL ESR (0-20) mm/Hr Potassium (3.5-5.1) mmol/L BUN (9-20) mg/dL Creatinine (0.66-1.25) mg/dL Calcium (8.4-10.2) mg/dL Total Bilirubin (0.2-1.3) mg/dL Total Protein (6.3-8.2) g/dL Albumin (3.5-5.0) g/dL Procalcitonin (0.02-0.09) ng/mL Microbiology - Last 24 Hours (Table) 03/23/24 07:07 Blood Culture Gram Stain - Preliminary Blood Blood Culture - Preliminary Presumptive Staph aureus Assessment and Plan (1) Sepsis Current Visit: Yes Status: Acute Code(s): A41.9 - SEPSIS, UNSPECIFIED ORGANISM SNOMED Code(s): 34762905 (2) MSSA bacteremia Current Visit: Yes Status: Acute Code(s): R78.81 - BACTEREMIA; B95.61 - METHICILLIN SUSCEP STAPH INFCT CAUSING DIS CLASSD ELSWHR SNOMED Code(s): 642412311 Plan: 1patient presented to hospital with sepsis in this patient who did have fever tachycardia elevated white count presented with the weakness lethargy noticed to have fecal impaction question of possible abdominal source 2-patient also have MSSA bacteremia which is usually of a skin and soft tissue origin currently the patient do not have any significant skin breakdown except a stage II to the sacral area patient did have a history of chronic dislocation of the right hip however there was no signs of any swelling redness warmth or wound at the bilateral hip or the spine area 3-blood culture repeat also coming positive concerning for possible endovascular or deep source, blood culture repeated. Blood cultures will be repeated daily to document clearance of bacteremia 4- tagged WBC scan for possible evaluation of the source of infection could not be completed as the lab was not able to get enough blood 5TEE has been ordered waiting for completion 2D echocardiogram did not show any vegetation patient benefit from CT of abdominal pelvis with contrast to evaluate his lumbar spine as well as well as hip area this has been discussed with the medical team 6patient to continue with Naficillin and Flagyl . Sister at the bedside questions were answered Dictation was produced using [employer] dictation software. please excuse any grammatical, word or spelling errors. Time with Patient: Less than 30
--- NOTE | 2024-03-25 13:58 | CT ---
EXAMINATION TYPE: CT abdomen pelvis wo/w con DATE OF EXAM: 03/25/2024 COMPARISON: 03/20/2024 HISTORY: SEPSIS CT DLP: 2155 mGycm CONTRAST: CT scan of the abdomen and pelvis is performed without Oral Contrast and with IV Contrast, patient in jected with 100ml mL of Isovue 300. FINDINGS: LUNG BASES-: No visible nodule. Interval development of basilar pleural effusions and compressive ate lectasis right greater than left. LIVER/GB: There is evidence of cholelithiasis. No space occupying hepatic lesion. Biliary tree is of normal caliber. PANCREAS: No inflammation. No distinct mass. SPLEEN: No splenic enlargement. No lesion seen. ADRENALS: No nodule. No thickening. KIDNEYS/BLADDER: No hydronephrosis. No nephrolithiasis. No distinct renal mass. Urinary bladder g rossly unremarkable. BOWEL: Rectosigmoid wall thickening may reflect proctocolitis. There is a large volume of intracoloni c debris at the level of the sigmoid colon and rectum which may reflect impaction. The remaining colo n demonstrates mild to moderate fecal debris. Small bowel is of normal caliber. No free air or absces s. GENITAL ORGANS: No gross abnormality. LYMPH NODES: No greater than 1cm abdominal or pelvic lymph nodes are appreciated. AORTA: No significant abnormality. OSSEOUS STRUCTURES: Severe scoliosis thoracolumbar spine convex to the right. OTHER: No significant additional abnormality is seen. IMPRESSION: 1. Rectosigmoid wall thickening may reflect proctocolitis. There is a large volume of intracolonic de bris at the level of the sigmoid colon and rectum which may reflect impaction.
--- NOTE | 2024-03-25 15:46 | P.PN ---
Subjective Progress Note Date: 03/25/24 Subjective: Patient seen at bedside. Overnight patient had back pain which caused acute distress. Pertinent positives and negatives discussed above, a complete review of systems was preformed and all the other sytems were negative. Vitals Signs Reveiwed. General: Contracted male, non toxic, no distress, appears at stated age, normal weight Derm: no unusual rashes/lesions, warm Head: atraumatic, normocephalic, symmetric Eyes: EOMI, no lid lag, anicteric sclera, pupils equal round reactive to light ENT: Nose and ears atraumatic Neck: No cervical lymphadenopathy, trachea midline, supple Mouth: no lip lesion, mucus membranes moist Cardiovascular: S1S2 reg, no murmur, positive dorsalis pedis pulse bilateral, no edema Lungs: CTA bilateral, no rhonchi, no rales, no accessory muscle use Abdominal: soft, nontender to palpation, no guarding Ext: Diffuse muscle atrophy with diffuse contractures Neuro: Severely limited range of motion with diffuse contractures Psych: Patient is only oriented to self and answers some questions Data Reveiwed Today: Patient Labs: Sodium 137, potassium 3.5, BUN 7, creatinine 1.39, calcium 7.7, total bilirubin 1.7, total protein 5.6, albumin 2.7, WBC 11.73, hemoglobin 13.1, and MCV 79. Imaging: Abdomen/pelvis CT: Rectosigmoid wall thickening may reflect proctocolitis. There is a large volume of intracolonic debris at the level of the sigmoid colon and rectum which may reflect impaction. Did not see any obvious osseous abnormality concerning for infection Assesment: 58-year-old male with a past medical history of cerebral palsy who presented to the ED by his family for complaints of lethargy and poor oral intake. Patient was admitted for further workup of fecal impaction and bacteremia. Plan: Sepsis due to MSSA bacteremia: History of cerebral palsy History of hip fluid placement as well as extensive back surgery for scoliosis Stage I decubitus ulcer sacral, present on admission Initial blood cultures came back as Staphylococcus aureus. Continue nafcillin 2gm IVPB every 4 HR (day 2) and discontinued cefazolin New blood cultures showed positive for MSSA, pending blood cultures from today Patient's temperature continues to average within normal limits throughout the day. White count decreased significantly today from 16.2 to now 11.73. Continue to monitor telemetry NS at 75 cc/h Echo 55-60% EF, no valvular vegetation, due to persistent bacteremia, -pending WEN ID ordered a tagged WBC scan for possible evaluation of the source of infection. (may be difficult as venous access is problem and pt may not tolerate being in CT for extended period per the sister) -Discussed management with ID and they agree with our care plan., Also continue Flagyl 500 3 times daily (day 2) -Local wound care for decubitus ulcer Fecal impaction: Continue lactulose 30 g oral twice a day Continue regular diet General surgery following, IV Protonix added for nausea. Hypokalemia: Resolved Leukocytosis, resolved F NS at 75 cc/h E none N regular diet A uses wheelchair at baseline DVT ppx: Lovenox 40 mg SQ daily Anticipated discharge place: Pending clinical course Anticipated discharge time: Pending clinical course Patient is critically ill, needs close monitoring. I have seen and evaluated the patient today. Discussed with the resident and agree with the residents finding and plan as documented in the resident's note. Changes highlighted in blue font. Objective - Vital Signs Vital signs: Vital Signs Temp 99.6 F 03/25/24 02:00 Pulse 97 03/25/24 02:00 Resp 20 03/25/24 02:00 BP 141/68 03/25/24 02:00 Pulse Ox 94 L 03/25/24 02:00 FiO2 Intake & Output 03/24/24 03/24/24 03/25/24 06:59 18:59 06:59 Intake Total 236 118 476 Balance 236 118 476 Intake: Oral 236 118 476 Other: # Voids 3 3 3 # Bowel Movements 1 2 1 - Labs CBC & Chem 7: 03/25/24 04:56 03/25/24 08:08 Labs: Abnormal Lab Results - Last 24 Hours (Table) 03/24/24 03/24/24 03/24/24 Range/Units 09:30 09:30 09:30 WBC 16.2 H (3.8-10.6) k/uL Hgb 12.5 L (13.0-17.5) gm/dL MCHC 30.5 L (31.0-37.0) g/dL Neutrophils # 13.5 H (1.3-7.7) k/uL ESR 61 H (0-20) mm/Hr Potassium (3.5-5.1) mmol/L Chloride 109 H (98-107) mmol/L Carbon Dioxide 21 L (22-30) mmol/L BUN (9-20) mg/dL Creatinine 0.31 L (0.66-1.25) mg/dL Calcium 7.9 L (8.4-10.2) mg/dL Total Bilirubin (0.2-1.3) mg/dL C-Reactive Protein 7.3 H (<1.0) mg/dL Total Protein (6.3-8.2) g/dL Albumin (3.5-5.0) g/dL Procalcitonin 1.87 H (0.02-0.09) ng/mL 03/25/24 Range/Units 04:56 WBC (3.8-10.6) k/uL Hgb (13.0-17.5) gm/dL MCHC (31.0-37.0) g/dL Neutrophils # (1.3-7.7) k/uL ESR (0-20) mm/Hr Potassium 2.4 L* (3.5-5.1) mmol/L Chloride (98-107) mmol/L Carbon Dioxide (22-30) mmol/L BUN 7 L (9-20) mg/dL Creatinine 0.39 L (0.66-1.25) mg/dL Calcium 7.7 L (8.4-10.2) mg/dL Total Bilirubin 1.7 H (0.2-1.3) mg/dL C-Reactive Protein (<1.0) mg/dL Total Protein 5.6 L (6.3-8.2) g/dL Albumin 2.7 L (3.5-5.0) g/dL Procalcitonin (0.02-0.09) ng/mL Microbiology - Last 24 Hours (Table) 03/23/24 07:07 Blood Culture Gram Stain - Preliminary Blood Blood Culture - Preliminary Presumptive Staph aureus
[2024-03-26 09:08] LABS: Basophils % (A) 0 %; Eosinophils # (A) 0.2 k/uL (0-0.7); Eosinophils % (A) 2 %; HCT 44.9 % (39.0-53.0); HGB 13.9 gm/dL (13.0-17.5); Hypochromasia Moderate; Lymphocytes # (A) 1.3 k/uL (1.0-4.8); Lymphocytes % (A) 16 %; MCH 25.6 pg (25.0-35.0); MCV 82.5 fL (80.0-100.0); Mean Platelet Volume 9.1; Monocytes # (A) 0.7 k/uL (0-1.0); Monocytes % (A) 9 %; Neutrophils # (A) 5.9 k/uL (1.3-7.7); Neutrophils % (A) 70 %; Platelet Count 331 k/uL (150-450); RBC 5.44 m/uL (4.30-5.90); RDW 14.2 % (11.5-15.5); WBC 8.4 k/uL (3.8-10.6)
[2024-03-26 09:12] LABS: African American GFR (CKD) >90 (>60 ml/min/1.73 sqM); Anion Gap 7 mmol/L; Blood Urea Nitrogen 8 mg/dL (9-20); Calcium 8.1 mg/dL (8.4-10.2); Carbon Dioxide 30 mmol/L (22-30); Chloride 103 mmol/L (98-107); Glucose 110 mg/dL (74-99); Non-African American GFR(CKD) >90 (>60 ml/min/1.73 sqM); Sodium 140 mmol/L (137-145)
[2024-03-26 09:17] LABS: Potassium 2.7 mmol/L (3.5-5.1)
[2024-03-26] MEDS: METOPROLOL TARTRATE 12.5 MG TAB PO SCH (09:23)
[2024-03-26] MEDS: amLODIPine 5 MG TAB PO SCH (09:23)
[2024-03-26 11:27] LABS: Magnesium 1.9 mg/dL (1.6-2.3)
--- NOTE | 2024-03-26 11:34 | P.CRDCN ---
History of Present Illness History of present illness: HISTORY OF PRESENT ILLNESS: This is a 58-year-old male with a past medical history significant for cerebral palsy. Patient does not follow with a business management specialist. We have been asked to see the patient in consultation for WEN. Patient examined at the bedside. patient is admitted to the hospital secondary to fecal impaction. Patient was also found to have MSSA bacteremia. Infectious disease is following. He remains on IV and bad experience internal medicine is requesting WEN to rule out vegetation. * EKG reveals sinus mechanism with no signs of acute ischemia * Chest xray negative for acute process * Laboratory data: W BC 8.4. Hemoglobin 13.9. Platelet count 331. Sodium 140. Potassium 3.0. BUN 8. Creatinine 0.48. * Current home cardiac medications include none * Echocardiogram obtained this hospitalization revealed ejection fraction 55- 60%, moderate pulmonary hypertension, trace to mild MR, mild TR. REVIEW OF SYSTEMS: At the time of my exam: CONSTITUTIONAL: Denies fever or chills. HEENT: Denies blurred vision, vision changes, or eye pain. Denies hemoptysis CARDIOVASCULAR: Denies chest pain. Denies orthopnea. Denies PND. Denies palpitations RESPIRATORY: Denies shortness of breath. GASTROINTESTINAL: Denies abdominal pain. Denies nausea or vomiting. HEMATOLOGIC: Denies bleeding disorders. GENITOURINARY: Denies any blood in urine. SKIN: Denies pruitis. Denies rash. PHYSICAL EXAM: VITAL SIGNS: Reviewed. GENERAL: Well-developed in no acute distress. HEENT: Head is normocephalic. Pupils are equal, round. Sclerae anicteric. Mucous membranes of the mouth are moist. Neck supple. No JVD or thyromegaly LUNGS: Respirations even and unlabored. Lungs essentially clear to auscultation bilaterally. HEART: Regular rate and rhythm. S1 and S2 heard. ABDOMEN: Soft. Nondistended. Nontender. EXTREMITIES: No clubbing or cyanosis. Peripheral pulses intact. No lower extremity edema NEUROLOGIC: Awake and alert. Oriented x 3. ASSESSMENT: Fecal impaction MSSA bacteremia History of cerebral palsy PLAN: Continue antibiotics per infectious disease WEN has been requested by internal medicine. Discussed with family member at the bedside who is agreeable. Patient will undergo WEN by Dr. Yates today with anesthesia If WEN is negative for vegetation, no further recommendations from a cardiac standpoint Nurse practitioner note has been reviewed by physician. Signing provider agrees with the documented findings, assessment, and plan of care. Past Medical History Additional Past Medical History / Comment(s): Spastic quadriplegia, cerebtal palsy, microcephaly, seizur disorder, nystagmus, strabismus. Chronically dislocated right hip (monitored by [facility], [facility]) History of Any Multi-Drug Resistant Organisms: None Reported Additional Past Surgical History / Comment(s): Heelcord and hamstring lengthening (1971), right femur varus derotation with internal fixation (1975), Internal fixation removal (1978) Past Psychological History: No Psychological Hx Reported Smoking Status: Never smoker Past Alcohol Use History: None Reported Past Drug Use History: None Reported Medications and Allergies Home Medications Medication Instructions Recorded Confirmed Type ALPRAZolam [Xanax] 0.25 mg PO BID PRN 03/20/24 03/20/24 History Ascorbic Acid [Vitamin C] 500 mg PO DAILY 03/20/24 03/20/24 History Famotidine [Pepcid] 20 mg PO BID 03/20/24 03/20/24 History Omeprazole 20 mg PO DAILY 03/20/24 03/20/24 History polyethylene glycoL 3350 [Miralax] 17 gm PO DAILY 03/20/24 03/20/24 History tiZANidine [Zanaflex] 4 mg PO TID 03/20/24 03/20/24 History Allergies Allergy/AdvReac Type Severity Reaction Status Date / Time No Known Allergies Allergy Verified 03/20/24 19:42 Physical Exam Vitals: Vital Signs Temp Pulse Pulse Resp BP Pulse Ox 03/26/24 08:56 98.7 F 80 18 178/98 97 03/26/24 08:00 84 80 16 03/26/24 07:45 98.7 F 80 16 178/98 97 03/26/24 01:50 98.3 F 84 16 144/81 90 L 03/25/24 19:58 97.3 F L 120 H 16 123/85 96 03/25/24 15:37 99.7 F H 77 185/107 03/25/24 14:00 99.5 F 82 16 187/110 100 Intake and Output 03/25/24 03/26/24 03/26/24 22:59 06:59 14:59 Other: # Voids 4 1 # Bowel Movements 1 1 Results 03/26/24 04:18 03/26/24 10:45 CBC 03/26/24 Range/Units 04:18 WBC 8.4 (3.8-10.6) k/uL RBC 5.44 (4.30-5.90) m/uL Hgb 13.9 (13.0-17.5) gm/dL Hct 44.9 (39.0-53.0) % Plt Count 331 (150-450) k/uL Comprehensive Metabolic Panel 03/26/24 03/26/24 Range/Units 04:18 10:45 Sodium 140 (137-145) mmol/L Potassium 2.7 L* 3.0 L (3.5-5.1) mmol/L Chloride 103 (98-107) mmol/L Carbon Dioxide 30 (22-30) mmol/L BUN 8 L (9-20) mg/dL Creatinine 0.48 L (0.66-1.25) mg/dL Glucose 110 H (74-99) mg/dL Calcium 8.1 L (8.4-10.2) mg/dL Current Medications Generic Name Dose Route Start Last Admin Trade Name Freq PRN Reason Stop Dose Admin Acetaminophen 650 mg 03/20/24 23:11 03/23/24 16:09 Acetaminophen Tab 325 Mg Tab PO 650 mg Q6HR PRN Administration Mild Pain or Fever > 100.5 Alprazolam 0.25 mg 03/20/24 23:21 03/24/24 09:17 Alprazolam 0.25 Mg Tab PO 0.25 mg BID PRN Administration Anxiety Amlodipine Besylate 5 mg 03/26/24 09:00 03/26/24 09:23 Amlodipine 5 Mg Tab PO 5 mg DAILY ERENDIRA Administration Ascorbic Acid 500 mg 03/21/24 09:00 03/26/24 11:26 Ascorbic Acid 500 Mg Tab PO Not Given DAILY ERENDIRA Enoxaparin Sodium 40 mg 03/21/24 09:00 03/26/24 08:44 Enoxaparin 40 Mg/0.4 Ml Syringe SQ 40 mg DAILY ERENDIRA Administration Famotidine 20 mg 03/21/24 09:00 03/26/24 11:26 Famotidine 20 Mg Tab PO Not Given BID [facility] Sodium Chloride 1,000 mls @ 75 mls/hr 03/20/24 23:15 03/26/24 03:53 Saline 0.9% IV Not Given .[id number] [facility] Nafcillin Sodium 2 gm/ 100 mls @ 50 mls/hr 03/24/24 12:00 03/26/24 08:43 Dextrose/Water IVPB 50 mls/hr Q4HR [facility] Administration Protocol Ibuprofen 400 mg 03/20/24 23:11 03/25/24 00:18 Ibuprofen 400 Mg Tab PO 400 mg Q6HR PRN Administration Mild Pain or Fever > 100.5 Lactulose 30 gm 03/21/24 10:30 03/26/24 11:26 Lactulose 20 Gm/30 Ml Cup PO Not Given BID [facility] Metoprolol Tartrate 12.5 mg 03/26/24 09:00 03/26/24 09:23 Metoprolol Tartrate 12.5 Mg Tab PO 12.5 mg BID [facility] Administration Metronidazole 500 mg 03/24/24 10:00 03/26/24 11:26 Metronidazole 500 Mg Tab PO Not Given TID [facility] Protocol Naloxone HCl 0.2 mg 03/20/24 23:11 Naloxone 0.4 Mg/Ml 1 Ml Vial IV Q2M PRN Opioid Reversal Ondansetron HCl 4 mg 03/20/24 23:11 03/23/24 08:21 Ondansetron 4 Mg/2 Ml Vial IVP 4 mg Q8HR PRN Administration Nausea And Vomiting Pantoprazole Sodium 40 mg 03/23/24 11:15 03/26/24 08:44 Pantoprazole 40 Mg/10 Ml Vial IVP 40 mg DAILY [facility] Administration Petrolatum 1 applic 03/22/24 21:00 03/26/24 08:45 Zinc Oxide Paste (Z-Guard) 1 Applic TOPICAL 1 applic BID [facility] Administration Protocol Tizanidine HCl 4 mg 03/21/24 09:00 03/26/24 11:26 Tizanidine 4 Mg Tab PO Not Given TID [facility] Intake and Output 03/25/24 03/26/24 03/26/24 22:59 06:59 14:59 Other: # Voids 4 1 # Bowel Movements 1 1 03/26/24 04:18 03/26/24 10:45
[2024-03-26] MEDS: POTASSIUM CHLORIDE ER 20 MEQ TAB.ER PO STA (15:22)
--- NOTE | 2024-03-26 16:06 | P.PN ---
Subjective Progress Note Date: 03/26/24 Principal diagnosis: Reason for follow-up is MSSA bacteremia Patient is a 58-year-old -[place] Citizen male past medical history significant for cerebral palsy spastic quadriplegia microcephaly seizure disorder chronically dislocated right hip patient has been brought into the hospital few days ago for evaluation of lethargy decreased oral intake patient was noticed to be febrile and did have a positive blood culture with MSSA prompting this consultation CT abdominal pelvis with fecal impaction. On today's evaluation that is 03/26/2024, patient did have resolution of his f ever and has been afebrile this morning, patient is breathing comfortably and is currently on room air, patient denies having any significant cough no chest pain shortness of breath, patient denies nausea vomiting or diarrhea and no abdominal pain, patient mention feeling better. Patient white count is normalized to 8.4 creatinine 0.48 blood culture 03/25/2024 so far pending Objective - Vital Signs Vital signs: Vital Signs Temp 98.7 F 03/26/24 08:56 Pulse 80 03/26/24 08:56 Resp 18 03/26/24 08:56 BP 178/98 03/26/24 08:56 Pulse Ox 97 03/26/24 08:56 FiO2 Intake & Output 03/25/24 03/26/24 03/26/24 18:59 06:59 18:59 Other: # Voids 4 1 # Bowel Movements 1 1 - Exam GENERAL DESCRIPTION: Middle-age male lying in bed in no distress RESPIRATORY SYSTEM: Unlabored breathing , decreased breath sounds at bases HEART: S1 S2 regular rate and rhythm , ABDOMEN: Soft , no tenderness EXTREMITIES: No swelling redness or tenderness was noticed on the spine or bilateral hip area - Labs CBC & Chem 7: 03/26/24 04:18 03/26/24 10:45 Labs: Abnormal Lab Results - Last 24 Hours (Table) 03/26/24 03/26/24 Range/Units 04:18 10:45 Potassium 2.7 L* 3.0 L (3.5-5.1) mmol/L BUN 8 L (9-20) mg/dL Creatinine 0.48 L (0.66-1.25) mg/dL Glucose 110 H (74-99) mg/dL Calcium 8.1 L (8.4-10.2) mg/dL Microbiology - Last 24 Hours (Table) 03/24/24 09:30 Blood Culture Gram Stain - Preliminary Blood Blood Culture - Preliminary Molecular ID 03/23/24 07:07 Blood Culture Gram Stain - Final Blood Blood Culture - Final Staphylococcus aureus Assessment and Plan (1) Sepsis Current Visit: Yes Status: Acute Code(s): A41.9 - SEPSIS, UNSPECIFIED ORGANISM SNOMED Code(s): 55492679 (2) MSSA bacteremia Current Visit: Yes Status: Acute Code(s): R78.81 - BACTEREMIA; B95.61 - METHICILLIN SUSCEP STAPH INFCT CAUSING DIS CLASSD [id number] SNOMED Code(s): 430010434 Plan: 1patient presented to hospital with sepsis in this patient who did have fever tachycardia elevated white count presented with the weakness lethargy noticed to have fecal impaction question of possible abdominal source 2-patient also have MSSA bacteremia which is usually of a skin and soft tissue origin currently the patient do not have any significant skin breakdown except a stage II to the sacral area patient did have a history of chronic dislocation of the right hip however there was no signs of any swelling redness warmth or wound at the bilateral hip or the spine area 3- Blood cultures will be repeated daily to document clearance of bacteremia 4- tagged WBC scan for possible evaluation of the source of infection could not be completed as the lab was not able to get enough blood 5TEE has been ordered waiting for completion, did have CT of abdominal pelvis that shows possible proctocolitis 6patient to continue with Naficillin and Flagyl . Sister at the bedside questions were answered Dictation was produced using [employer] dictation software. please excuse any grammatical, word or spelling errors. Time with Patient: Less than 30
--- NOTE | 2024-03-26 16:07 | P.TEE ---
Date of Procedure: 03/26/24 Description of Procedure(s): Procedure performed: 1. Transesophageal Echocardiogram with color flow doppler, pulsed wave doppler and continuous wave doppler, 2. Sedation by anesthesia team due to h/o of cerebral palsy Indications: Persistant Staph Bacteremia, rule out endocarditis Consent: I have discussed the risks, benefits and alternative therapies for the above-mentioned procedure. The patient has indicated understanding and acceptance of the risks of the procedure. Signed consent was obtained and was placed in the paper chart. Procedural Steps: Timeout was performed in usual fashion. Patient's heart rate, blood pressure, oxygen saturation and ECG were monitored. Benzocaine was sprayed librally in the back of thr throat. Bite block was placed between the jaw. Anesthesia by OFFICE SUPPORT SPECIALIST After achieveing appropriate moderate concious sedation, WEN probe was advanced without difficulty and without any immediate complications to the esophagus. WEN study was performed with color flow doppler, pulsed wave doppler and continuous wave doppler. Agitated saline bubbles were injected to assess for any intra- atrial shunt. The probe was then removed. Patient tolerated the procedure well. Patient was transferred to the post procedure area in stable and satisfactory condition. Throughout the procedure patient's heart rate, blood pressure, oxygen saturation and ECG were monitored. Complications: none FINDINGS Left Atrium : [Normal Left atrial size. No evidence of mass or thrombus seen] Left Atrial Appendage: [No evidence of thrombus or mass seen in GIO] Inter atrial septum: [Intact inter-atrial septum Left Ventricle: [Normal global LV size and systolic function] Right Atrium: [Normal overall RV size] Right Ventricle: [Normal global RV size and systolic function] Aortic Valve: Mildly thickened leaflets, Trileaflet. No significant stenosis or regurgitation on color doppler assessment. No evidence of endocarditis Mitral Valve: Struturally normal. No evidence of prolapse. No evidence of stenosis or regurgitation on doppler assessment]. No evidence of endocarditis. Pulmonic Valve: No stenosis or regurgitation. No evidence of endocarditis Tricuspid Valve: Structurally normal. No evidence of endocarditis. Ascending aorta, Aortic root and Aortic arch: Normal size aortic root and ascending aorta. No pericardial effusion CONCLUSION: 1. No evidence of endocarditis. 2. No evidence of significant valvular dysfunction 3. Normal global LV size and systolic function 4. No major structural cardiac abnormality
--- NOTE | 2024-03-26 17:56 | P.PN ---
Subjective Progress Note Date: 03/26/24 Patient seen at bedside. No significant overnight events. Pertinent positives and negatives discussed above, a complete review of systems was preformed and all the other sytems were negative. Vitals Signs Reveiwed. General: Contracted male, non toxic, no distress, appears at stated age, normal weight Derm: no unusual rashes/lesions, warm Head: atraumatic, normocephalic, symmetric Eyes: EOMI, no lid lag, anicteric sclera, pupils equal round reactive to light ENT: Nose and ears atraumatic Neck: No cervical lymphadenopathy, trachea midline, supple Mouth: no lip lesion, mucus membranes moist Cardiovascular: S1S2 reg, no murmur, positive dorsalis pedis pulse bilateral, no edema Lungs: CTA bilateral, no rhonchi, no rales, no accessory muscle use Abdominal: soft, nontender to palpation, no guarding Ext: Diffuse muscle atrophy with diffuse contractures Neuro: Severely limited range of motion with diffuse contractures Psych: Patient is only oriented to self and answers some questions Data Reveiwed Today: Patient Labs: WBC 8.4, hemoglobin 13.9, MCV 82.5, platelet count 331, sodium 140, potassium 3, BUN 8, creatinine 1.48, glucose 110, and calcium 8.1. Imaging: WEN: No evidence of endocarditis, no evidence of significant valvular dysfunction, normal global LV size and systolic function, no major structural cardiac abnormality. Assesment: 58-year-old male with a past medical history of cerebral palsy who presented to the ED by his family for complaints of lethargy and poor oral intake. Patient was admitted for further workup of fecal impaction and bacteremia. Plan: Sepsis due to MSSA bacteremia: History of cerebral palsy History of hip fluid placement as well as extensive back surgery for scoliosis Stage I decubitus ulcer sacral, present on admission Initial blood cultures came back as Staphylococcus aureus Continue nafcillin 2gm IVPB every 4 HR (day 3) and discontinued cefazolin New blood cultures from today (03/26) continue to be positive for MSSA, will repeat blood cultures tomorrow. Patient's temperature continues to average within normal limits throughout the day. White count decreased today to 8.4. Patient's potassium today was 3, received one-time dose of potassium chloride ER 40 mill equivalents p.o. cardiology note reviewed, patient started on metoprolol to tartrate 12.5 mg p.o. twice daily and amlodipine 5 mg p.o. daily. Continue to monitor telemetry NS at 75 cc/h Echo 55-60% EF, no valvular vegetation, due to persistent bacteremia, -WEN showed no evidence of major structural cardiac abnormality nor evidence of endocarditis. ID ordered a tagged WBC scan for possible evaluation of the source of infection. (may be difficult as venous access is problem and pt may not tolerate being in CT for extended period per the sister) -Discussed management with ID and they agree with our care plan., Also continue Flagyl 500 3 times daily (day 3) -Local wound care for decubitus ulcer Fecal impaction: Continue lactulose 30 g oral twice a day Continue regular diet General surgery following, IV Protonix added for nausea. Hypokalemia: Resolved Leukocytosis, resolved F NS at 75 cc/h E none N regular diet A uses wheelchair at baseline DVT ppx: Lovenox 40 mg SQ daily Anticipated discharge place: Pending clinical course Anticipated discharge time: Pending clinical course I have seen and evaluated the patient today. Discussed with the resident and agree with resident's findings and plan as documented in the resident's note. Changes highlighted in blue font. Objective - Vital Signs Vital signs: Vital Signs Temp 98.3 F 03/26/24 01:50 Pulse 84 03/26/24 01:50 Resp 16 03/26/24 01:50 BP 144/81 03/26/24 01:50 Pulse Ox 90 L 03/26/24 01:50 FiO2 Intake & Output 03/25/24 03/26/24 03/26/24 18:59 06:59 18:59 Other: # Voids 4 1 # Bowel Movements 1 1 - Labs CBC & Chem 7: 03/26/24 04:18 03/26/24 10:45 Labs: Abnormal Lab Results - Last 24 Hours (Table) 03/25/24 Range/Units 04:56 WBC 11.73 H (4.50-10.00) X 10*3/uL MCV 79.0 L (80.0-97.0) FL MCH 25.2 L (27.0-32.0) pg RDW 14.6 H (11.5-14.5) % Immature Gran # 0.12 H (0.00-0.04) X 10*3/uL Neutrophils # 8.31 H (1.80-7.70) X 10*3/uL Monocytes # 1.26 H (0.20-1.00) X 10*3/uL Microbiology - Last 24 Hours (Table) 03/24/24 09:30 Blood Culture Gram Stain - Preliminary Blood Blood Culture - Preliminary Molecular ID 03/23/24 07:07 Blood Culture Gram Stain - Final Blood Blood Culture - Final Staphylococcus aureus
[2024-03-26] MEDS: MELATONIN 5 MG TABLET PO SCH (22:34)
[2024-03-27 08:24] LABS: ALT 97 U/L (4-49); AST 132 U/L (17-59); African American GFR (CKD) >90 (>60 ml/min/1.73 sqM); Albumin 3.4 g/dL (3.5-5.0); Albumin/Globulin Ratio 0.9; Alkaline Phosphatase 120 U/L (38-126); Anion Gap 11 mmol/L; Blood Urea Nitrogen 8 mg/dL (9-20); Calcium 8.8 mg/dL (8.4-10.2); Carbon Dioxide 31 mmol/L (22-30); Chloride 103 mmol/L (98-107); Globulin 3.6 g/dL; Glucose 104 mg/dL (74-99); Non-African American GFR(CKD) >90 (>60 ml/min/1.73 sqM); Sodium 145 mmol/L (137-145); Total Bilirubin 1.8 mg/dL (0.2-1.3)
--- NOTE | 2024-03-27 12:32 | XR ---
EXAMINATION TYPE: XR Hip Complete RT DATE OF EXAM: 03/27/2024 12:18 PM CLINICAL INDICATION:Male, 58 years old with history of MSSA bacteremia; [facility] COMPARISON: None. TECHNIQUE: XR Hip Complete RT; hip was examined in the frontal and lateral projections and a AP pelvi s. FINDINGS/IMPRESSION: 1. Subluxed right hip superiorly with remote appearing fracture of the proximal right femur. 2. No acute fractures definitively visualized. 3. Fixation rods in the lower spine appear intact.
--- NOTE | 2024-03-27 12:44 | P.PN ---
Subjective Progress Note Date: 03/27/24 Patient seen at bedside. No significant overnight events. Pertinent positives and negatives discussed above, a complete review of systems was preformed and all the other systems were negative. Vitals Signs reviewed. Patient refused physical: Below is physical from (03/26) General: Contracted male, non toxic, no distress, appears at stated age, normal weight Derm: no unusual rashes/lesions, warm Head: atraumatic, normocephalic, symmetric Eyes: EOMI, no lid lag, anicteric sclera, pupils equal round reactive to light ENT: Nose and ears atraumatic Neck: No cervical lymphadenopathy, trachea midline, supple Mouth: no lip lesion, mucus membranes moist Cardiovascular: S1S2 reg, no murmur, positive dorsalis pedis pulse bilateral, no edema Lungs: CTA bilateral, no rhonchi, no rales, no accessory muscle use Abdominal: soft, nontender to palpation, no guarding Ext: Diffuse muscle atrophy with diffuse contractures Neuro: Severely limited range of motion with diffuse contractures Psych: Patient is only oriented to self and answers some questions Data reviewed today: Patient Labs: Sodium 145, potassium 4, bicarb 31, BUN 8, creatinine 0.52, glucose 104, total bilirubin 1.8, AST 132, ALT 97, and albumin 3.4. Imaging: WEN: No evidence of endocarditis, no evidence of significant valvular dysfunction, normal global LV size and systolic function, no major structural cardiac abnormality. Assesment: 58-year-old male with a past medical history of cerebral palsy who presented to the ED by his family for complaints of lethargy and poor oral intake. Patient was admitted for further workup of fecal impaction and bacteremia. Plan: Sepsis due to MSSA bacteremia: History of cerebral palsy History of hip fluid placement as well as extensive back surgery for scoliosis Stage I decubitus ulcer sacral, present on admission Transaminitis Initial blood cultures came back as Staphylococcus aureus Continue nafcillin 2gm IVPB every 4 HR (day 4) and discontinued cefazolin -ID following, also continue Flagyl 500 3 times daily (day 4) ID ordered a tagged WBC scan for possible evaluation of the source of infection. (may be difficult as venous access is problem and pt may not tolerate being in CT for extended period per the sister) Most recent cultures collected on (03/25) showed no growth after 24 hours. Patient's temperature continues to average within normal limits throughout the day. If patient's vitals and infection status continue to trend in the right direction, we will consider PICC line placement for outpatient IV antibiotics on Friday (03/29) if unable to find an adequate source for infection. cardiology following, patient started on metoprolol to tartrate 12.5 mg p.o. twice daily and amlodipine 5 mg p.o. daily. Started melatonin 5 mg p.o. at bedtime to help with sleep. Elevated LFTs today (03/27) AST 132 and ALT 97, will trend with CMP. Continue to monitor telemetry NS at 75 cc/h Echo 55-60% EF, no valvular vegetation, due to persistent bacteremia, -WEN showed no evidence of major structural cardiac abnormality nor evidence of endocarditis. -Local wound care for decubitus ulcer Fecal impaction: Continue lactulose 30 g oral twice a day Continue regular diet General surgery following, IV Protonix added for nausea. Hypokalemia: Resolved Leukocytosis, resolved F NS at 75 cc/h E none N regular diet A uses wheelchair at baseline DVT ppx: Lovenox 40 mg SQ daily Anticipated discharge place: Pending clinical course Anticipated discharge time: Pending clinical course I have seen and evaluated the patient today. Discussed with the resident and agree with the residents finding and plan as documented in the resident's note. Changes highlighted in blue font. 60 Objective - Vital Signs Vital signs: Vital Signs Temp 98.7 F 03/26/24 08:56 Pulse 83 03/27/24 02:59 Resp 16 03/27/24 02:59 BP 113/58 03/26/24 13:10 Pulse Ox 97 03/26/24 13:10 FiO2 Intake & Output 03/26/24 03/27/24 03/27/24 18:59 06:59 18:59 Other: # Voids 1 - Labs CBC & Chem 7: 03/26/24 04:18 03/27/24 07:25 Labs: Abnormal Lab Results - Last 24 Hours (Table) 03/26/24 03/26/24 Range/Units 04:18 10:45 Potassium 2.7 L* 3.0 L (3.5-5.1) mmol/L BUN 8 L (9-20) mg/dL Creatinine 0.48 L (0.66-1.25) mg/dL Glucose 110 H (74-99) mg/dL Calcium 8.1 L (8.4-10.2) mg/dL Microbiology - Last 24 Hours (Table) 03/24/24 09:30 Blood Culture Gram Stain - Preliminary Blood Blood Culture - Preliminary Staphylococcus aureus Molecular ID 03/25/24 04:56 Blood Culture - Preliminary Blood 03/23/24 07:07 Blood Culture Gram Stain - Final Blood Blood Culture - Final Staphylococcus aureus
--- NOTE | 2024-03-27 13:56 | P.PN ---
Subjective Progress Note Date: 03/27/24 Principal diagnosis: Reason for follow-up is MSSA bacteremia Patient is a 58-year-old -[place]one[place] male past medical history significant for cerebral palsy spastic quadriplegia microcephaly seizure disorder chronically dislocated right hip patient has been brought into the hospital few days ago for evaluation of lethargy decreased oral intake patient was noticed to be febrile and did have a positive blood culture with MSSA prompting this consultation CT abdominal pelvis with fecal impaction. On today's evaluation that is 03/27/2024, Patient is afebrile this morning pat ient denies having any chest pain shortness of breath or cough, the patient is breathing comfortably and currently on room air, patient denies any abdominal pain no nausea no vomiting. Patient did have a creatinine 0.52 no CBC was done today blood culture from 03/25/2024 as well as 03/26/2024 so far negative x-ray with subluxed right hip superiorly with remote appearing fracture of the right proximal femur Objective - Vital Signs Vital signs: Vital Signs Temp 98.7 F 03/26/24 08:56 Pulse 83 03/27/24 02:59 Resp 16 03/27/24 02:59 BP 113/58 03/26/24 13:10 Pulse Ox 97 03/26/24 13:10 FiO2 Intake & Output 03/26/24 03/27/24 03/27/24 18:59 06:59 18:59 Other: # Voids 1 - Exam GENERAL DESCRIPTION: Middle-age male lying in bed in no distress RESPIRATORY SYSTEM: Unlabored breathing , decreased breath sounds at bases HEART: S1 S2 regular rate and rhythm , ABDOMEN: Soft , no tenderness EXTREMITIES: No swelling redness or tenderness was noticed on the spine or bilateral hip area - Labs CBC & Chem 7: 03/26/24 04:18 03/27/24 07:25 Labs: Abnormal Lab Results - Last 24 Hours (Table) 03/26/24 03/26/24 03/27/24 Range/Units 04:18 10:45 07:25 Potassium 2.7 L* 3.0 L (3.5-5.1) mmol/L Carbon Dioxide 31 H (22-30) mmol/L BUN 8 L 8 L (9-20) mg/dL Creatinine 0.48 L 0.52 L (0.66-1.25) mg/dL Glucose 110 H 104 H (74-99) mg/dL Calcium 8.1 L (8.4-10.2) mg/dL Total Bilirubin 1.8 H (0.2-1.3) mg/dL AST 132 H (17-59) U/L ALT 97 H (4-49) U/L Albumin 3.4 L (3.5-5.0) g/dL Microbiology - Last 24 Hours (Table) 03/24/24 09:30 Blood Culture Gram Stain - Preliminary Blood Blood Culture - Preliminary Staphylococcus aureus Molecular ID 03/25/24 04:56 Blood Culture - Preliminary Blood 03/23/24 07:07 Blood Culture Gram Stain - Final Blood Blood Culture - Final Staphylococcus aureus Assessment and Plan (1) Sepsis Current Visit: Yes Status: Acute Code(s): A41.9 - SEPSIS, UNSPECIFIED ORGANISM SNOMED Code(s): 47946265 (2) MSSA bacteremia Current Visit: Yes Status: Acute Code(s): R78.81 - BACTEREMIA; B95.61 - METHICILLIN SUSCEP STAPH INFCT CAUSING DIS CLASSD ELSWHR SNOMED Code(s): 834303029 Plan: 1patient presented to hospital with sepsis in this patient who did have fever tachycardia elevated white count presented with the weakness lethargy noticed to have fecal impaction question of possible abdominal source 2-patient also have MSSA bacteremia which is usually of a skin and soft tissue origin currently the patient do not have any significant skin breakdown except a stage II to the sacral area patient did have a history of chronic dislocation of the right hip however there was no signs of any swelling redness warmth or wound at the bilateral hip or the spine area 3- Blood cultures repeated on 03/25/2024 as well as 03/26/2024 has been negative 4- tagged WBC scan for possible evaluation of the source of infection could not be completed as the lab was not able to get enough blood 5TEE did not show any evidence of endocarditis, patient did have CT of abdominal pelvis that shows possible proctocolitis 6-patient did have x-ray of the right hip which did show subluxed right hip superiorly with remote appearing fracture of the right proximal femur will benefit from Ortho evaluation 7patient to continue with Naficillin and Flagyl . Sister at the bedside questions were answered Dictation was produced using dragon dictation software. please excuse any grammatical, word or spelling errors. Time with Patient: Less than 30
[2024-03-28 03:54] LABS: ALT 90 U/L (4-49); AST 67 U/L (17-59); African American GFR (CKD) >90 (>60 ml/min/1.73 sqM); Albumin 3.2 g/dL (3.5-5.0); Albumin/Globulin Ratio 0.9; Alkaline Phosphatase 108 U/L (38-126); Anion Gap 8 mmol/L; Blood Urea Nitrogen 13 mg/dL (9-20); Calcium 8.2 mg/dL (8.4-10.2); Carbon Dioxide 27 mmol/L (22-30); Chloride 105 mmol/L (98-107); Globulin 3.4 g/dL; Glucose 119 mg/dL (74-99); Non-African American GFR(CKD) >90 (>60 ml/min/1.73 sqM); Potassium 2.8 mmol/L (3.5-5.1); Sodium 140 mmol/L (137-145); Total Protein 6.6 g/dL (6.3-8.2)
[2024-03-28] MEDS: POTASSIUM CHLORIDE ER 20 MEQ TAB.ER PO STA (05:44)
[2024-03-28] MEDS: POTASSIUM BICARBONATE/CIT AC 20 MEQ TABLET.EFF PO ONE (06:39)
--- NOTE | 2024-03-28 12:03 | P.PN ---
Subjective Progress Note Date: 03/28/24 Patient seen at bedside. No significant overnight events. Pertinent positives and negatives discussed above, a complete review of systems was preformed and all the other systems were negative. Vitals Signs reviewed. Physical exam General: Contracted male, non toxic, no distress, appears at stated age, normal weight Derm: no unusual rashes/lesions, warm Head: atraumatic, normocephalic, symmetric Eyes: EOMI, no lid lag, anicteric sclera, pupils equal round reactive to light ENT: Nose and ears atraumatic Neck: No cervical lymphadenopathy, trachea midline, supple Mouth: no lip lesion, mucus membranes moist Cardiovascular: S1S2 reg, no murmur, positive dorsalis pedis pulse bilateral, no edema Lungs: CTA bilateral, no rhonchi, no rales, no accessory muscle use Abdominal: soft, nontender to palpation, no guarding Ext: Diffuse muscle atrophy with diffuse contractures Neuro: Severely limited range of motion with diffuse contractures Psych: Patient is only oriented to self and answers some questions Data reviewed today: Patient Labs: Sodium 140, potassium 2.8, creatinine 0.67, total bili 2, AST 67, ALT 90 Imaging: No new imaging Assesment: 58-year-old male with a past medical history of cerebral palsy who presented to the ED by his family for complaints of lethargy and poor oral intake. Patient was admitted for further workup of fecal impaction and bacteremia. Unclear source, on nafcillin. ID following Plan: Sepsis due to MSSA bacteremia: History of cerebral palsy History of hip replacement as well as extensive back surgery for scoliosis Stage I decubitus ulcer sacral, present on admission Transaminitis improving Patient is no longer persistently bacteremic, continue nafcillin 2 g IV every 4 hours, also on Flagyl 500 3 times daily. ID ID ordered a tagged WBC scan for possible evaluation of the source of infection. (may be difficult as venous access is problem and pt may not tolerate being in CT for extended period per the sister) Still unable to identify the source, does have remote appearing fracture of proximal right femur, orthopedics consulted cardiology following, patient started on metoprolol to tartrate 12.5 mg p.o. twice daily and amlodipine 5 mg p.o. daily. Continue melatonin 5 mg p.o. at bedtime to help with sleep. Continue to monitor telemetry NS at 75 cc/h Echo 55-60% EF, no valvular vegetation, due to persistent bacteremia, -WEN showed no evidence of major structural cardiac abnormality nor evidence of endocarditis. -Local wound care for decubitus ulcer Fecal impaction: Continue lactulose 30 g oral twice a day Continue regular diet General surgery following, IV Protonix added for nausea. Hypokalemia: Was given 80 mill equivalent oral potassium overnight, repeat potassium pending Leukocytosis, resolved F NS at 75 cc/h E none N regular diet A uses wheelchair at baseline DVT ppx: Lovenox 40 mg SQ daily Anticipated discharge place: Pending clinical course Anticipated discharge time: Pending clinical course Objective - Vital Signs Vital signs: Vital Signs Temp 98.6 F 03/28/24 08:00 Pulse 104 H 03/28/24 08:00 Resp 16 03/28/24 08:00 BP 150/93 03/28/24 08:00 Pulse Ox 95 03/28/24 08:00 FiO2 Intake & Output 03/27/24 03/28/24 03/28/24 18:59 06:59 18:59 Intake Total 100 Balance 100 Intake: Oral 100 Other: Voiding Method Diaper Diaper Incontinent # Voids 2 # Bowel Movements 1 1 - Labs CBC & Chem 7: 03/26/24 04:18 03/28/24 10:28 Labs: Abnormal Lab Results - Last 24 Hours (Table) 03/28/24 03/28/24 Range/Units 02:56 10:28 Potassium 2.8 L 3.4 L (3.5-5.1) mmol/L Glucose 119 H (74-99) mg/dL Calcium 8.2 L (8.4-10.2) mg/dL Total Bilirubin 2.0 H (0.2-1.3) mg/dL AST 67 H (17-59) U/L ALT 90 H (4-49) U/L Albumin 3.2 L (3.5-5.0) g/dL Microbiology - Last 24 Hours (Table) 03/26/24 04:18 Blood Culture - Preliminary Blood 03/25/24 04:56 Blood Culture - Preliminary Blood
--- NOTE | 2024-03-28 15:19 | P.CNOR ---
History of Present Illness - [facility] Consult date: 03/28/24 Requesting physician: Kade Pulido Consult reason: other (Possible remote right hip fracture) History of present illness: History of Presenting Illness Patient is a pleasant 58-year-old male with a past medical history significant of cerebral palsy, spastic quadriplegia, microcephaly, and seizure disorder who presented to the ER 03/20/24 with a chief complaint of lethargy. At admission patient had been described as having abnormal breathing and feeling "hot". Patient has been admitted to [facility] and has been continuing with a thorough workup due to sepsis and positive MSSA bacteremia. Our services have been consulted due to possible right hip remote fracture, possible source of MSSA bactermia. Patient does have a communication barrier. His sister is present in room and is able to provide history. She does state that her other sister is the one who cares for him regularly. Patient is a total assist with ADLs. He is nonweightbearing of the lower extremities. He utilizes a high-back wheelchair for transportation. Patient does have an orthopedic history of Head ariel placement of the lumbar spine and a chronically dislocated right hip. Patient has been seen and examined this afternoon. Sister is at bedside and was able to provide history and current situation. Patient is able to answer some simple questions. Patient denies any right hip pain or discomfort. He denies any other pain or discomfort overall. Patient has been afebrile, VSS. Discussed with patient and family the need for a MRI to further evaluate right hip for possibl source of infection. Sister states that patient will not be able to tolerate a MRI. Discussed having a CT scan of the right hip and patient does state he just had one. Discussed the need for imaging of the right hip for further evaluation and patient nods his head in a up and down motion to indicate he understands. Review of Systems Pertinent positives and negatives as discussed in HPI, a complete review of systems was performed and all other systems are negative. Physical Examination Inspection: Negative for any open fractures, ecchymosis, significant erythema/ulcers. Sensation: Sensation is equal, symmetric, bilaterally intact throughout the upper and lower extremities Palpation: Nontender to palpation throughout bilateral upper and lower extremities and throughout spine exam Range of motion: Patient does have limited range of motion bilateral upper and lower extremities on exam due to contractures of upper and lower extremities. Motor: 4/5 in all major motor groups in the bilateral upper and lower extremities Log Roll maneuver of right lower extremity does not produce pain or discomfort. Neurovascular: Radial pulse intact, 2+ bilaterally. Cap refill under 3 seconds in digits upper extremities. Assessment and Plan Chronic dislocation of right hip Possible fracture right hip Sepsis MSSA bacteremia Multiple complex comorbidities At this time there has been an order placed for a CT of the right hip w/wo contrast to rule out fracture and possible source of MSSA bacteremia. Continue with ID recommendations. We will await results of CT scan to proceed with further recommendations. -Appreciate team management and consult. I reviewed and discussed this case with my attending Dr. Ocampo, whom has reviewed this chart and films and is in agreement with assessment and plan of care as outlined above. I have personally seen and examined the patient, performed the documentation and the assessment and plan as written. Number of minutes spent on the visit: 30m. Past Medical History Additional Past Medical History / Comment(s): Spastic quadriplegia, cerebtal palsy, microcephaly, seizur disorder, nystagmus, strabismus. Chronically dislocated [place] [facility] [place] [facility] History of Any Multi-Drug Resistant Organisms: None Reported Additional Past Surgical History / Comment(s): Heelcord and hamstring lengthening (1971), right femur varus derotation with internal fixation (1975), Internal fixation removal (1978) Past Psychological History: No Psychological Hx Reported Smoking Status: Never smoker Past Alcohol Use History: None Reported Past Drug Use History: None Reported Medications and Allergies Home Medications Medication Instructions Recorded Confirmed Type ALPRAZolam [Xanax] 0.25 mg PO BID PRN 03/20/24 03/20/24 History Ascorbic Acid [Vitamin C] 500 mg PO DAILY 03/20/24 03/20/24 History Famotidine [Pepcid] 20 mg PO BID 03/20/24 03/20/24 History Omeprazole 20 mg PO DAILY 03/20/24 03/20/24 History polyethylene glycoL 3350 [Miralax] 17 gm PO DAILY 03/20/24 03/20/24 History tiZANidine [Zanaflex] 4 mg PO TID 03/20/24 03/20/24 History Allergies Allergy/AdvReac Type Severity Reaction Status Date / Time No Known Allergies Allergy Verified 03/20/24 19:42 Results - Labs Labs: Abnormal Lab Results - Last 24 Hours (Table) 03/28/24 03/28/24 Range/Units 02:56 10:28 Potassium 2.8 L 3.4 L (3.5-5.1) mmol/L Glucose 119 H (74-99) mg/dL Calcium 8.2 L (8.4-10.2) mg/dL Total Bilirubin 2.0 H (0.2-1.3) mg/dL AST 67 H (17-59) U/L ALT 90 H (4-49) U/L Albumin 3.2 L (3.5-5.0) g/dL Microbiology - Last 24 Hours (Table) 03/26/24 04:18 Blood Culture - Preliminary Blood 03/25/24 04:56 Blood Culture - Preliminary Blood H & H 03/20/24 03/22/24 03/24/24 Range/Units 18:15 06:25 09:30 Hgb 14.5 12.8 L 12.5 L (13.0-17.5) gm/dL Hct 47.7 41.0 40.8 (39.0-53.0) % 03/25/24 03/26/24 Range/Units 04:56 04:18 Hgb 13.1 13.9 (13.0-17.5) gm/dL Hct 41.0 44.9 (39.0-53.0) % Coagulation 03/20/24 Range/Units 18:15 INR 1.1 (<1.2) Result Diagrams: 03/26/24 04:18 03/28/24 10:28
--- NOTE | 2024-03-28 17:09 | CT ---
EXAMINATION TYPE: CT hip RT wo/w con CT DLP: 637 mGycm, Automated exposure control for dose reduction was used. DATE OF EXAM: 03/28/2024 4:30 PM COMPARISON: 03/25/2024. CLINICAL INDICATION:Male, 58 years old with history of r/o possible infection and acute fracture; PHH , r/o possible infection and acute fracture TECHNIQUE: Axial images were obtained of the CT hip RT wo/w con, Additional coronal and sagittal refo rmatted images and soft tissue and bone window were obtained for review. 3-D reconstruction was creat ed on a separate workstation. Contrast used:80ml mL of Isovue 300 without and with IV Contrast, (None if empty) Oral contrast used: (None if empty) FINDINGS: There is chronic deformity to the right hip with abnormal appearance of the femoral head an d acetabulum. Chronic subluxation of the hips superiorly. No organizing fluid collection no evidence for osseous erosion. Streaky subcutaneous edema seen throughout the exam. No evidence of acute fractu re. No evidence for Atrophy changes to use some of the muscles of the leg. IMPRESSION: 1. No evidence for acute fracture. 2. Chronic deformity to the right hip with superior subluxation. 3. No evidence for joint effusion or organizing fluid collection. 4. No osseous erosion to suggest osteomyelitis.
--- NOTE | 2024-03-28 21:37 | P.PN ---
Subjective Progress Note Date: 03/28/24 Principal diagnosis: Reason for follow-up is MSSA bacteremia Patient is a 58-year-old -[place]ene[place] male past medical history significant for cerebral palsy spastic quadriplegia microcephaly seizure disorder chronically dislocated right hip patient has been brought into the hospital few days ago for evaluation of lethargy decreased oral intake patient was noticed to be febrile and did have a positive blood culture with MSSA prompting this consultation CT abdominal pelvis with fecal impaction. On today's evaluation that is 03/28/2024,the patient has been afebrile for more than 48 hours now the patient is breathing comfortably on room air denies any chest pain shortness of breath or cough no nausea vomiting no abdominal pain or diarrhea. Patient did have a creatinine 0.67 blood culture repeat has been negative so far Objective - Vital Signs Vital signs: Vital Signs Temp 98.6 F 03/28/24 08:00 Pulse 104 H 03/28/24 08:00 Resp 16 03/28/24 08:00 BP 150/93 03/28/24 08:00 Pulse Ox 95 03/28/24 08:00 FiO2 Intake & Output 03/27/24 03/28/24 03/28/24 18:59 06:59 18:59 Intake Total 100 Balance 100 Intake: Oral 100 Other: Voiding Method Diaper Incontinent # Voids 2 # Bowel Movements 1 1 - Exam GENERAL DESCRIPTION: Middle-age male lying in bed in no distress RESPIRATORY SYSTEM: Unlabored breathing , decreased breath sounds at bases HEART: S1 S2 regular rate and rhythm , ABDOMEN: Soft , no tenderness EXTREMITIES: No swelling redness or tenderness was noticed on the spine or bilateral hip area - Labs CBC & Chem 7: 03/26/24 04:18 03/28/24 10:28 Labs: Abnormal Lab Results - Last 24 Hours (Table) 03/28/24 Range/Units 02:56 Potassium 2.8 L (3.5-5.1) mmol/L Glucose 119 H (74-99) mg/dL Calcium 8.2 L (8.4-10.2) mg/dL Total Bilirubin 2.0 H (0.2-1.3) mg/dL AST 67 H (17-59) U/L ALT 90 H (4-49) U/L Albumin 3.2 L (3.5-5.0) g/dL Microbiology - Last 24 Hours (Table) 03/26/24 04:18 Blood Culture - Preliminary Blood 03/25/24 04:56 Blood Culture - Preliminary Blood Assessment and Plan (1) Sepsis Current Visit: Yes Status: Acute Code(s): A41.9 - SEPSIS, UNSPECIFIED ORGANISM SNOMED Code(s): 72188189 (2) MSSA bacteremia Current Visit: Yes Status: Acute Code(s): R78.81 - BACTEREMIA; B95.61 - METHICILLIN SUSCEP STAPH INFCT CAUSING DIS CLASSD ELSWHR SNOMED Code(s): 316850899 Plan: 1patient presented to hospital with sepsis in this patient who did have fever tachycardia elevated white count presented with the weakness lethargy noticed to have fecal impaction question of possible abdominal source 2-patient also have MSSA bacteremia which is usually of a skin and soft tissue origin currently the patient do not have any significant skin breakdown except a stage II to the sacral area patient did have a history of chronic dislocation of the right hip however there was no signs of any swelling redness warmth or wound at the bilateral hip or the spine area 3- Blood cultures repeated on 03/25/2024 as well as 03/26/2024 has been negative 4- tagged WBC scan for possible evaluation of the source of infection could not be completed as the lab was not able to get enough blood 5TEE did not show any evidence of endocarditis, patient did have CT of abdominal pelvis that shows possible proctocolitis 6-patient did have x-ray of the right hip which did show subluxed right hip superiorly with remote appearing fracture of the right proximal femur Ortho has been consulted await their evaluation 7patient to continue with Naficillin and Flagyl, will order the PICC line for tomorrow if 1 can be placed as the patient has cleared his bacteremia otherwise may need port . Sister at the bedside questions were answered Dictation was produced using [employer] dictation software. please excuse any grammatical, word or spelling errors. Time with Patient: Less than 30
--- NOTE | 2024-03-29 09:54 | P.PN ---
Subjective Progress Note Date: 03/29/24 Principal diagnosis: Possible remote right hip fracture Patient has been seen and examined this afternoon. Sister is at bedside. Patient continues to deny any right hip pain or discomfort. Results from the CT of the right hip taken on 03/28/24 have been discussed. Informed patient and family that imaging demonstrated no evidence for an acute fracture, joint effusion or organizing fluid collection, and no osseous erosion to suggest osteomyelitis. The right hip has been ruled out as a source of possible infection. Patient is cleared from an orthopedic standpoint for discharge when medically stable. Objective - Vital Signs Vital signs: Vital Signs Temp 98.0 F 03/29/24 08:00 Pulse 72 03/29/24 08:00 Resp 16 03/29/24 08:00 BP 173/85 03/29/24 08:00 Pulse Ox 100 03/29/24 08:00 FiO2 Intake & Output 03/28/24 03/29/24 03/29/24 18:59 06:59 18:59 Other: Voiding Method Diaper Diaper # Voids 2 1 # Bowel Movements 2 - Labs CBC & Chem 7: 03/26/24 04:18 03/28/24 10:28 Labs: Abnormal Lab Results - Last 24 Hours (Table) 03/28/24 Range/Units 10:28 Potassium 3.4 L (3.5-5.1) mmol/L Microbiology - Last 24 Hours (Table) 03/24/24 09:30 Blood Culture Gram Stain - Final Blood Blood Culture - Final Staphylococcus aureus Molecular ID 03/26/24 04:18 Blood Culture - Preliminary Blood 03/25/24 04:56 Blood Culture - Preliminary Blood Assessment and Plan Assessment: Inspection: Negative for any open fractures, ecchymosis, significant erythema/ulcers. Sensation: Sensation is equal, symmetric, bilaterally intact throughout the upper and lower extremities Palpation: Nontender to palpation throughout bilateral upper and lower extremities and throughout spine exam Range of motion: Patient does have limited range of motion bilateral upper and lower extremities on exam due to contractures of upper and lower extremities. Motor: 4/5 in all major motor groups in the bilateral upper and lower extremities Log Roll maneuver of right lower extremity does not produce pain or discomfort. Neurovascular: Radial pulse intact, 2+ bilaterally. Cap refill under 3 seconds in digits upper extremities. Plan: At this time we do not recommend any emergent/urgent orthopedic surgical intervention. Patient may follow-up with Dr. Ocampo office for further evaluation as needed. Orthopedics is signing off at this time. Please do not hesitate to contact us for any further questions. Appreciate consult
[2024-03-29 10:29] LABS: ALT 54 U/L (10-49); AST 30 U/L (14-35); Albumin/Globulin Ratio 0.94 Ratio (1.60-3.17); Alkaline Phosphatase 83 U/L (41-126); Blood Urea Nitrogen 9.1 mg/dL (9.0-27.0); Carbon Dioxide 28.3 mmol/L (21.6-31.8); Chloride 103 mmol/L (96-109); Globulin 3.2 g/dL (1.6-3.3); Glucose 142 mg/dL (70-110); Magnesium 1.9 mg/dL (1.5-2.4); Sodium 144 mmol/L (135-145); Total Bilirubin 0.9 mg/dL (0.3-1.2); Total Protein 6.2 g/dL (6.2-8.2)
[2024-03-29] MEDS: POTASSIUM CHLORIDE ER 20 MEQ TAB.ER PO STA (11:40)
[2024-03-29 14:06] VITALS: BMI 23.4
[2024-03-29 14:34] LABS: Basophils % (A) 1 %; Eosinophils # (A) 0.2 k/uL (0-0.7); Eosinophils % (A) 3 %; HCT 40.3 % (39.0-53.0); HGB 12.5 gm/dL (13.0-17.5); Hypochromasia Marked; Lymphocytes # (A) 1.2 k/uL (1.0-4.8); Lymphocytes % (A) 18 %; MCH 25.9 pg (25.0-35.0); MCHC 31.1 g/dL (31.0-37.0); MCV 83.2 fL (80.0-100.0); Mean Platelet Volume 8.8; Monocytes # (A) 0.4 k/uL (0-1.0); Monocytes % (A) 6 %; Neutrophils # (A) 4.6 k/uL (1.3-7.7); Neutrophils % (A) 70 %; Platelet Count 386 k/uL (150-450); RBC 4.84 m/uL (4.30-5.90); RDW 15.1 % (11.5-15.5); WBC 6.5 k/uL (3.8-10.6)
--- NOTE | 2024-03-29 14:50 | P.PN ---
Subjective Progress Note Date: 03/29/24 Patient seen at bedside. No significant overnight events. Pertinent positives and negatives discussed above, a complete review of systems was preformed and all the other systems were negative. Vitals Signs reviewed. Physical exam General: Contracted male, non toxic, no distress, appears at stated age, normal weight Derm: no unusual rashes/lesions, warm Head: atraumatic, normocephalic, symmetric Eyes: EOMI, no lid lag, anicteric sclera, pupils equal round reactive to light ENT: Nose and ears atraumatic Neck: No cervical lymphadenopathy, trachea midline, supple Mouth: no lip lesion, mucus membranes moist Cardiovascular: S1S2 reg, no murmur, positive dorsalis pedis pulse bilateral, no edema Lungs: CTA bilateral, no rhonchi, no rales, no accessory muscle use Abdominal: soft, nontender to palpation, no guarding Ext: Diffuse muscle atrophy with diffuse contractures Neuro: Severely limited range of motion with diffuse contractures Psych: Patient is only oriented to self and answers some questions Data reviewed today: Patient Labs: Sodium of 144, potassium 3, glucose 142, calcium 8, WBC 6.5, hemoglobin 12.5, and MCV 83.2. Imaging: CT right hip showed no acute fracture or dislocation, chronic deformity with superior subluxation, no evidence for joint effusion organizing fluid co llection, and no evidence of osteomyelitis. Assesment: 58-year-old male with a past medical history of cerebral palsy who presented to the ED by his family for complaints of lethargy and poor oral i ntake. Patient was admitted for further workup of fecal impaction and bacteremia. Unclear source, on nafcillin. ID following Plan: Sepsis due to MSSA bacteremia: History of cerebral palsy History of hip replacement as well as extensive back surgery for scoliosis Stage I decubitus ulcer sacral, present on admission Transaminitis improving - Patient is no longer persistently bacteremic, nafcillin changed to 2 g IV cefazolin every 8 hours, also on Flagyl 500 3 times daily. - still unclear source -cardiology following, patient started on metoprolol to tartrate 12.5 mg p.o. twice daily and amlodipine 5 mg p.o. daily. - Continue melatonin 5 mg p.o. at bedtime to help with sleep. - Continue to monitor telemetry - NS at 75 cc/h - Echo 55-60% EF, no valvular vegetation, due to persistent bacteremia, -WEN showed no evidence of major structural cardiac abnormality nor evidence of endocarditis. No evidence of right hip infection based on CT results PICC line scheduled for today Patient's sister denied WBC tagged scan after it was offered. After discussing with ID, patient will be sent home after PICC line/port placement with cefazolin 2 g IV. -Local wound care for decubitus ulcer Fecal impaction: Continue lactulose 30 g oral twice a day Continue regular diet General surgery following, IV Protonix added for nausea. Hypokalemia: Ordered one-time dose potassium chloride ER 40 mill equivalents after patient had potassium of 3 this morning. Leukocytosis, resolved F NS at 75 cc/h E none N regular diet A uses wheelchair at baseline DVT ppx: Lovenox 40 mg SQ daily Anticipated discharge place: To home with family care Anticipated discharge time: Likely tomorrow (03/30) if patient is able to get PICC line/port placed I have seen and evaluated the patient today. Discussed with the resident and agree with resident's findings and plan as documented in the resident's note. Changes highlighted in blue font. Objective - Vital Signs Vital signs: Vital Signs Temp 98.2 F 03/29/24 02:00 Pulse 62 03/29/24 02:00 Resp 15 03/29/24 02:00 BP 145/83 03/29/24 02:00 Pulse Ox 100 03/29/24 02:00 FiO2 Intake & Output 03/28/24 03/29/24 03/29/24 18:59 06:59 18:59 Other: Voiding Method Diaper Diaper # Voids 2 1 # Bowel Movements 2 - Labs CBC & Chem 7: 03/29/24 07:23 03/29/24 07:23 Labs: Abnormal Lab Results - Last 24 Hours (Table) 03/28/24 Range/Units 10:28 Potassium 3.4 L (3.5-5.1) mmol/L Microbiology - Last 24 Hours (Table) 03/24/24 09:30 Blood Culture Gram Stain - Final Blood Blood Culture - Final Staphylococcus aureus Molecular ID 03/26/24 04:18 Blood Culture - Preliminary Blood 03/25/24 04:56 Blood Culture - Preliminary Blood
--- NOTE | 2024-03-29 23:01 | P.PN ---
Subjective Progress Note Date: 03/29/24 Principal diagnosis: Reason for follow-up is MSSA bacteremia Patient is a 58-year-old -[place] male past medical history significant for cerebral palsy spastic quadriplegia microcephaly seizure disorder chronically dislocated right hip patient has been brought into the hospital few days ago for evaluation of lethargy decreased oral intake patient was noticed to be febrile and did have a positive blood culture with MSSA prompting this consultation CT abdominal pelvis with fecal impaction. On today's evaluation that is 03/29/2024,the patient remains to be afebrile, p atient is on room air not requiring supplemental oxygen and denies any shortness of breath no chest pain or cough.Patient denies having any nausea or vomiting, no abdominal pain and no diarrhea has been reported. Patient did have a white count of 6.5, creatinine 0.7 blood culture repeat has been negative patient did have a sed rate of [address] of the right hip was negative for any effusion or bony destruction Objective - Vital Signs Vital signs: Vital Signs Temp 98.0 F 03/29/24 08:00 Pulse 72 03/29/24 08:00 Resp 16 03/29/24 08:00 BP 173/85 03/29/24 08:00 Pulse Ox 100 03/29/24 08:00 FiO2 Intake & Output 03/28/24 03/29/24 03/29/24 18:59 06:59 18:59 Other: Voiding Method Diaper Diaper # Voids 2 1 # Bowel Movements 2 - Exam GENERAL DESCRIPTION: Middle-age male lying in bed in no distress RESPIRATORY SYSTEM: Unlabored breathing , decreased breath sounds at bases HEART: S1 S2 regular rate and rhythm , ABDOMEN: Soft , no tenderness EXTREMITIES: No swelling redness or tenderness was noticed on the spine or bilateral hip area - Labs CBC & Chem 7: 03/29/24 07:23 03/29/24 07:23 Labs: Abnormal Lab Results - Last 24 Hours (Table) 03/29/24 Range/Units 07:23 Potassium 3.0 L (3.5-5.5) mmol/L Anion Gap 12.70 H (4.00-12.00) mmol/L Glucose 142 H (70-110) mg/dL Calcium 8.0 L (8.7-10.3) mg/dL ALT 54 H (10-49) U/L Albumin 3.0 L (3.8-4.9) g/dL Albumin/Globulin Ratio 0.94 L (1.60-3.17) Ratio Microbiology - Last 24 Hours (Table) 03/24/24 09:30 Blood Culture Gram Stain - Final Blood Blood Culture - Final Staphylococcus aureus Molecular ID 03/26/24 04:18 Blood Culture - Preliminary Blood 03/25/24 04:56 Blood Culture - Preliminary Blood Assessment and Plan (1) Sepsis Current Visit: Yes Status: Acute Code(s): A41.9 - SEPSIS, UNSPECIFIED ORGANISM SNOMED Code(s): 59667824 (2) MSSA bacteremia Current Visit: Yes Status: Acute Code(s): R78.81 - BACTEREMIA; B95.61 - METHICILLIN SUSCEP STAPH INFCT CAUSING DIS CLASSD ELSWHR SNOMED Code(s): 141972099 Plan: 1patient presented to hospital with sepsis in this patient who did have fever tachycardia elevated white count presented with the weakness lethargy noticed to have fecal impaction question of possible abdominal source 2-patient also have MSSA bacteremia which is usually of a skin and soft tissue origin currently the patient do not have any significant skin breakdown except a stage II to the sacral area patient did have a history of chronic dislocation of the right hip however there was no signs of any swelling redness warmth or wound at the bilateral hip or the spine area 3- Blood cultures repeated on 03/25/2024 as well as 03/26/2024 has been negative 4- tagged WBC scan for possible evaluation of the source of infection, the patient's sister is currently refusing any further testing or WBC scan this has been discussed in detail with the patient's sister in the presence of patient nurse 5TEE did not show any evidence of endocarditis, patient did have CT of abdominal pelvis that shows possible proctocolitis 6-patient did have x-ray of the right hip which did show subluxed right hip superiorly with remote appearing fracture of the right proximal femur Ortho has been consulted, patient did have CT of the right hip no evidence of any effusion or bony destruction 7patient did have clearance of his bacteremia he is able to get a PICC line which has been ordered, patient to continue with Naficillin and Flagyl, plan is for a total of 6-week course of IV cefazolin on discharge . Sister at the bedside questions were answered Dictation was produced using [employer] software. please excuse any grammatical, word or spelling errors. Time with Patient: Less than 30
[2024-03-30 09:11] LABS: African American GFR (CKD) >90 (>60 ml/min/1.73 sqM); Anion Gap 8 mmol/L; Blood Urea Nitrogen 5 mg/dL (9-20); Calcium 8.4 mg/dL (8.4-10.2); Carbon Dioxide 24 mmol/L (22-30); Chloride 106 mmol/L (98-107); Glucose 90 mg/dL (74-99); Non-African American GFR(CKD) >90 (>60 ml/min/1.73 sqM); Sodium 138 mmol/L (137-145)
[2024-03-30 09:33] LABS: Potassium 3.1 mmol/L (3.5-5.1)
--- NOTE | 2024-03-30 11:19 | P.PN ---
Subjective Progress Note Date: 03/30/24 HISTORY OF PRESENT ILLNESS: This is a 58-year-old male with a past medical history significant for cerebral palsy. 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 We have been asked to see the patient in consultation for WEN. Patient examined at the bedside. patient is admitted to the hospital secondary to fecal impaction. Patient was also found to have MSSA bacteremia. Infectious disease is following. He remains on IV and bad experience internal medicine is requesting WEN to rule out vegetation. * EKG reveals sinus mechanism with no signs of acute ischemia * Chest xray negative for acute process * Laboratory data: W BC 8.4. Hemoglobin 13.9. Platelet count 331. Sodium 140. Potassium 3.0. BUN 8. Creatinine 0.48. * Current home cardiac medications include none * Echocardiogram obtained this hospitalization revealed ejection fraction 55- 60%, moderate pulmonary hypertension, trace to mild MR, mild TR. 03/30 Patient was previously seen by cardiology and underwent WEN due to bacteremia. WEN was performed on 03/26 revealed no evidence of endocarditis, no evidence of valvular dysfunction, normal global LV size and systolic function. We have been asked to reevaluate the patient for sinus pauses. Patient noted to have sinus pauses during the nighttime over the past 2 nights on several occasions up to 5.2 seconds. All instances have occurred at nighttime. Unknown if patient has sleep apnea as he has never been tested and would be quite difficult due to his history of cerebral palsy. Patient had previously been started on Lopressor 12.5 mg twice daily for intermittent tachycardia. Blood pressure 171/91, heart rate 83, pulse ox 97% on room air. Potassium is 3.1 and will be replaced. PHYSICAL EXAM: VITAL SIGNS: Reviewed. GENERAL: Well-developed in no acute distress. HEENT: Head is normocephalic. Pupils are equal, round. Sclerae anicteric. Mucous membranes of the mouth are moist. Neck supple. No JVD or thyromegaly LUNGS: Respirations even and unlabored. Lungs essentially clear to auscultation bilaterally. HEART: Regular rate and rhythm. S1 and S2 heard. ABDOMEN: Soft. Nondistended. Nontender. EXTREMITIES: No clubbing or cyanosis. Peripheral pulses intact. No lower extremity edema NEUROLOGIC: Awake and alert. ASSESSMENT: Fecal impaction MSSA bacteremia History of cerebral palsy Sinus pauses up to 5.2 seconds PLAN: Discontinue beta-elkin Continue telemetry monitoring Replace potassium, additional 40 mill equivalents ordered to total 80 mEq today Electrolytes and magnesium tomorrow Case has been discussed with Dr. Cherry to evaluate as low-dose beta-elkin should not cause the pauses that patient is experiencing. Consult with Dr. Cherry has been added. Nurse practitioner note has been reviewed by physician. Signing provider agrees with the documented findings, assessment, and plan of care. Objective - Vital Signs Vital signs: Vital Signs Temp 99.0 F 03/30/24 06:50 Pulse 83 03/30/24 06:50 Resp 15 03/30/24 06:50 BP 171/91 03/30/24 06:50 Pulse Ox 97 03/30/24 06:50 FiO2 Intake & Output 03/29/24 03/30/24 03/30/24 18:59 06:59 18:59 Intake Total 236 Balance 236 Weight 54.431 kg Intake: Oral 236 Other: # Voids 1 # Bowel Movements 1 1 - Labs CBC & Chem 7: 03/29/24 07:23 03/30/24 08:11 Labs: Abnormal Lab Results - Last 24 Hours (Table) 03/29/24 03/29/24 Range/Units 07:23 07:23 Hgb 12.5 L (13.0-17.5) gm/dL Potassium 3.0 L (3.5-5.5) mmol/L Anion Gap 12.70 H (4.00-12.00) mmol/L Glucose 142 H (70-110) mg/dL Calcium 8.0 L (8.7-10.3) mg/dL ALT 54 H (10-49) U/L Albumin 3.0 L (3.8-4.9) g/dL Albumin/Globulin Ratio 0.94 L (1.60-3.17) Ratio Microbiology - Last 24 Hours (Table) 03/26/24 04:18 Blood Culture - Preliminary Blood
[2024-03-30] MEDS: POTASSIUM CHLORIDE ER 20 MEQ TAB.ER PO STA ×2 (11:40→14:22)
--- NOTE | 2024-03-30 15:36 | P.EPCON ---
Electrophysiology Consult - EP Consult Electrophysiology Consult: EP consult, consulted by Dr. Vargas 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 He is also on Zanaflex which is a centrally acting alpha 2 agonist that reduces norepinephrine outflow and there are case reports of very severe bradycardia However this patient's bradycardia and sinus pauses are only at night, consistent with a vagal mechanism However this was not noted prior to starting metoprolol No history of hydrocephalus that could raise intracranial pressures and explain bradycardia Absence of hyperkalemia TSH normal Suggest Stop metoprolol completely Hold Zanaflex for 48 hours and then resume again Watch for bradycardia for 2 days and then if there is complete resolution and he may go home If this does not resolve then I would use hyoscyamine 12-hour pill at night for management of these bradycardic episodes Ideally at least a sleep apnea study should be performed but that will be difficult in this patient with cerebral palsy
--- NOTE | 2024-03-30 16:57 | P.PN ---
Subjective Progress Note Date: 03/30/24 Patient seen at bedside. Overnight patient had brief episodes of asystole, cardiology on board. Pertinent positives and negatives discussed above, a complete review of systems was preformed and all the other systems were negative. Vitals Signs reviewed. Physical exam General: Contracted male, non toxic, no distress, appears at stated age, normal weight Derm: no unusual rashes/lesions, warm Head: atraumatic, normocephalic, symmetric Eyes: EOMI, no lid lag, anicteric sclera, pupils equal round reactive to light ENT: Nose and ears atraumatic Neck: No cervical lymphadenopathy, trachea midline, supple Mouth: no lip lesion, mucus membranes moist Cardiovascular: S1S2 reg, no murmur, positive dorsalis pedis pulse bilateral, no edema Lungs: CTA bilateral, no rhonchi, no rales, no accessory muscle use Abdominal: soft, nontender to palpation, no guarding Ext: Diffuse muscle atrophy with diffuse contractures Neuro: Severely limited range of motion with diffuse contractures Psych: Patient is only oriented to self and answers some questions Data reviewed today: Patient Labs: Sodium 138, potassium 3.1, BUN 5, creatinine 1.35, and TSH 1.72. Imaging: No new imaging Assesment: 58-year-old male with a past medical history of cerebral palsy who presented to the ED by his family for complaints of lethargy and poor oral intake. Patient was admitted for further workup of fecal impaction and bacteremia. Unclear source, on nafcillin. ID following Plan: Sepsis due to MSSA bacteremia: History of cerebral palsy History of hip replacement as well as extensive back surgery for scoliosis Stage I decubitus ulcer sacral, present on admission Transaminitis improving - Patient is no longer persistently bacteremic, nafcillin changed to 2 g IV cefazolin every 8 hours, also on Flagyl 500 3 times daily. - still unclear source -Continue amlodipine 5 mg p.o. daily. - Continue melatonin 5 mg p.o. at bedtime to help with sleep. - Continue to monitor telemetry - NS at 75 cc/h - Echo 55-60% EF, no valvular vegetation, due to persistent bacteremia, -WEN showed no evidence of major structural cardiac abnormality nor evidence of endocarditis. No evidence of right hip infection based on CT results Patient received PICC line this morning (03/30) Per cardiology, after patient had episodes of asystole lasting 45 seconds overnight it was decided to discontinue the metoprolol and check a TSH which came back normal at 1.72. Replaced potassium with 80 mEq, will recheck this afternoon. Follow-up on CMP and magnesium in the a.m. Patient's sister denied WBC tagged scan after it was offered. After discussing with ID, patient will be sent home after PICC line with cefazolin 2 g IV. -Local wound care for decubitus ulcer Fecal impaction: Continue lactulose 30 g oral twice a day Continue regular diet General surgery following, IV Protonix added for nausea. Hypokalemia: Patient's potassium 3.1 this morning, ordered additional potassium chloride ER 80 mill equivalents p.o. and will recheck potassium at 13:00. Leukocytosis, resolved F NS at 75 cc/h E none N regular diet A uses wheelchair at baseline DVT ppx: Lovenox 40 mg SQ daily Anticipated discharge place: To home with family care Anticipated discharge time: Pending clinical course I have seen and evaluated the patient today. Discussed with the resident and agree with the residents subjective and objective as documented in the resident's note. The assessment and plan was discussed and outlined as below. Noted to have episodes of asystole while sleeping. This could be related to sleep apnea which was discussed with the healthcare translator. TSH wnl. Metoprolol discontinued. EP has been consulted. Objective - Vital Signs Vital signs: Vital Signs Temp 98.1 F 03/30/24 02:00 Pulse 68 03/30/24 02:00 Resp 16 03/30/24 02:00 BP 152/70 03/30/24 02:00 Pulse Ox 98 03/30/24 02:00 FiO2 Intake & Output 03/29/24 03/30/24 03/30/24 18:59 06:59 18:59 Intake Total 236 Balance 236 Weight 54.431 kg Intake: Oral 236 Other: # Voids 1 # Bowel Movements 1 1 - Labs CBC & Chem 7: 03/29/24 07:23 03/30/24 08:11 Labs: Abnormal Lab Results - Last 24 Hours (Table) 03/29/24 03/29/24 Range/Units 07: 07:23 Hgb 12.5 L (13.0-17.5) gm/dL Potassium 3.0 L (3.5-5.5) mmol/L Anion Gap 12.70 H (4.00-12.00) mmol/L Glucose 142 H (70-110) mg/dL Calcium 8.0 L (8.7-10.3) mg/dL ALT 54 H (10-49) U/L Albumin 3.0 L (3.8-4.9) g/dL Albumin/Globulin Ratio 0.94 L (1.60-3.17) Ratio Microbiology - Last 24 Hours (Table) 03/26/24 04:18 Blood Culture - Preliminary Blood
--- NOTE | 2024-03-30 22:29 | P.PN ---
Subjective Progress Note Date: 03/30/24 Principal diagnosis: Reason for follow-up is MSSA bacteremia Patient is a 58-year-old -Cypriot male past medical history significant for cerebral palsy spastic quadriplegia microcephaly seizure disorder chronically dislocated right hip patient has been brought into the hospital few days ago for evaluation of lethargy decreased oral intake patient was noticed to be febrile and did have a positive blood culture with MSSA prompting this consultation CT abdominal pelvis with fecal impaction. On today's evaluation that is 03/30/2024, the patient continues to be afebrile, the patient is on room air and breathing comfortably, the Pt denies having any chest pain or cough, the patient denies having any abdominal pain no vomiting or any diarrhea has been reported by the Sister at the bedside Patient did have a white count of 6.5 as of yesterday creatinine 0.35 blood c ulture repeat so far negative Objective - Vital Signs Vital signs: Vital Signs Temp 99.0 F 03/30/24 06:50 Pulse 83 03/30/24 06:50 Resp 15 03/30/24 06:50 BP 171/91 03/30/24 06:50 Pulse Ox 97 03/30/24 06:50 FiO2 Intake & Output 03/29/24 03/30/24 03/30/24 18:59 06:59 18:59 Intake Total 236 Balance 236 Weight 54.431 kg Intake: Oral 236 Other: # Voids 1 1 # Bowel Movements 1 1 1 - Exam GENERAL DESCRIPTION: Middle-age male lying in bed in no distress RESPIRATORY SYSTEM: Unlabored breathing , decreased breath sounds at bases HEART: S1 S2 regular rate and rhythm , ABDOMEN: Soft , no tenderness EXTREMITIES: No swelling redness or tenderness was noticed on the spine or bilateral hip area - Labs CBC & Chem 7: 03/29/24 07:23 03/30/24 17:23 Labs: Abnormal Lab Results - Last 24 Hours (Table) 03/29/24 03/30/24 Range/Units 07: 08:11 Hgb 12.5 L (13.0-17.5) gm/dL Potassium 3.1 L (3.5-5.1) mmol/L BUN 5 L (9-20) mg/dL Creatinine 0.35 L (0.66-1.25) mg/dL Microbiology - Last 24 Hours (Table) 03/26/24 04:18 Blood Culture - Preliminary Blood Assessment and Plan (1) Sepsis Current Visit: Yes Status: Acute Code(s): A41.9 - SEPSIS, UNSPECIFIED ORGANISM SNOMED Code(s): 07193533 (2) MSSA bacteremia Current Visit: Yes Status: Acute Code(s): R78.81 - BACTEREMIA; B95.61 - METHICILLIN SUSCEP STAPH INFCT CAUSING DIS CLASSD ELSWHR SNOMED Code(s): 046410984 Plan: 1patient presented to hospital with sepsis in this patient who did have fever tachycardia elevated white count presented with the weakness lethargy noticed to have fecal impaction question of possible abdominal source 2-patient also have MSSA bacteremia which is usually of a skin and soft tissue origin currently the patient do not have any significant skin breakdown except a stage II to the sacral area patient did have a history of chronic dislocation of the right hip however there was no signs of any swelling redness warmth or wound at the bilateral hip or the spine area 3- Blood cultures repeated on 03/25/2024 as well as 03/26/2024 has been negative 4- tagged WBC scan for possible evaluation of the source of infection, the hemant dickinson's sister is currently refusing any further testing or WBC scan this has been discussed in detail with the patient's sister in the presence of patient nurse 5TEE did not show any evidence of endocarditis, patient did have CT of abdominal pelvis that shows possible proctocolitis 6-patient did have x-ray of the right hip which did show subluxed right hip superiorly with remote appearing fracture of the right proximal femur Ortho has been consulted, patient did have CT of the right hip no evidence of any effusion or bony destruction 7patient did have clearance of his bacteremia PICC line has been placed plan is to finish therapy with cefazolin 2 g every 8 hours to finish a total of 6-week course of therapy and close outpatient follow-up detail discussion with the sister at the bedside for now continue with Naficillin while inpatient Dictation was produced using [employer] dictation software. please excuse any grammatical, word or spelling errors. Time with Patient: Less than 30
--- NOTE | 2024-03-31 09:40 | P.PN ---
Subjective Progress Note Date: 03/31/24 HISTORY OF PRESENT ILLNESS: This is a 58-year-old male with a past medical history significant for cerebral palsy. 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 We have been asked to see the patient in consultation for WEN. Patient examined at the bedside. patient is admitted to the hospital secondary to fecal impaction. Patient was also found to have MSSA bacteremia. Infectious disease is following. He remains on IV and bad experience internal medicine is requesting WEN to rule out vegetation. * EKG reveals sinus mechanism with no signs of acute ischemia * Chest xray negative for acute process * Laboratory data: W BC 8.4. Hemoglobin 13.9. Platelet count 331. Sodium 140. Potassium 3.0. BUN 8. Creatinine 0.48. * Current home cardiac medications include none * Echocardiogram obtained this hospitalization revealed ejection fraction 55- 60%, moderate pulmonary hypertension, trace to mild MR, mild TR. 03/30 Patient was previously seen by cardiology and underwent WEN due to bacteremia. WEN was performed on 03/26 revealed no evidence of endocarditis, no evidence of valvular dysfunction, normal global LV size and systolic function. We have been asked to reevaluate the patient for sinus pauses. Patient noted to have sinus pauses during the nighttime over the past 2 nights on several occasions up to 5.2 seconds. All instances have occurred at nighttime. Unknown if patient has sleep apnea as he has never been tested and would be quite difficult due to his history of cerebral palsy. Patient had previously been started on Lopressor 12.5 mg twice daily for intermittent tachycardia. Blood pressure 171/91, heart rate 83, pulse ox 97% on room air. Potassium is 3.1 and will be replaced. 03/31 Patient was seen by Dr. Cherry yesterday with recommendations for discontinuing metoprolol completely. Hold Zanaflex for 48 hours and then resume. Plan to monitor for bradycardia over the next 2 days to see if there is complete resolution and at that point he may be cleared for discharge. He also recommended a sleep study outpatient. Patient did have bradycardia last night in the 30s and 40s but no pauses. Plan is to continue monitoring for 1 more day. Amlodipine has been increased by attending. Blood pressure 185/106. Potassium 3.3 PHYSICAL EXAM: VITAL SIGNS: Reviewed. GENERAL: Well-developed in no acute distress. HEENT: Head is normocephalic. Pupils are equal, round. Sclerae anicteric. Mucous membranes of the mouth are moist. Neck supple. No JVD or thyromegaly LUNGS: Respirations even and unlabored. Lungs essentially clear to auscultation bilaterally. HEART: Regular rate and rhythm. S1 and S2 heard. ABDOMEN: Soft. Nondistended. Nontender. EXTREMITIES: No clubbing or cyanosis. Peripheral pulses intact. No lower extremity edema NEUROLOGIC: Awake and alert. ASSESSMENT: Fecal impaction MSSA bacteremia History of cerebral palsy Sinus pauses up to 5.2 seconds Hypokalemia PLAN: Discontinue beta-elkin Hold Zanaflex for 48 hours Continue telemetry monitoring Replace potassium Further recommendations as patient progresses. Nurse practitioner note has been reviewed by physician. Signing provider agrees with the documented findings, assessment, and plan of care. Objective - Vital Signs Vital signs: Vital Signs Temp 99.4 F 03/31/24 02:19 Pulse 93 03/31/24 02:19 Resp 18 03/31/24 02:19 BP 173/98 03/31/24 02:19 Pulse Ox 98 03/31/24 02:19 FiO2 Intake & Output 03/30/24 03/31/24 03/31/24 18:59 06:59 18:59 Intake Total 240 Output Total 1 Balance 240 -1 Intake: Oral 240 Output: Stool 1 Other: # Voids 1 1 # Bowel Movements 1 - Labs CBC & Chem 7: 03/29/24 07:23 03/30/24 17:23 Labs: Abnormal Lab Results - Last 24 Hours (Table) 03/30/24 03/30/24 Range/Units 08:11 17:23 Potassium 3.1 L 3.3 L (3.5-5.1) mmol/L BUN 5 L (9-20) mg/dL Creatinine 0.35 L (0.66-1.25) mg/dL Microbiology - Last 24 Hours (Table) 03/25/24 04:56 Blood Culture - Final Blood
[2024-03-31] MEDS: amLODIPine 10 MG TAB PO SCH (10:13)
[2024-03-31] MEDS: POTASSIUM CHLORIDE ER 20 MEQ TAB.ER PO SCH (10:18)
--- NOTE | 2024-03-31 12:15 | P.PN ---
Subjective Progress Note Date: 03/31/24 58 year old M with PMH of cerebral palsy presents to the ED for fever, lethargy and poor oral intake. In the ED he underwent extensive evaluation. BP 123/85, HR 110, T 98.2F, RR 16, 97% on RA. His Tmax went up to 101.2F. CBC, Coag panel, CMP significant for WBC 22.2, K 2.9, Cl 109, Cr 0.38, glu 129, Ca 8.0, total protein 6, alb 3.1. Troponin 0.023, 0.02. Mag 2.1. UA negative for LE or nitrite. Flu/RSV/COVID negative. CXR no acute findings. CT AP showed fecal impaction. Patient was started on Zosyn IV and admitted for further workup and management. Surgery evaluated, started on Lactulose and soap suds enema. Blood culture came back positive for presumptive MSSA. Antibiotics switched to Cefzolin and ID consulted for further management. CT AP showed rectosigmoid thickening may reflect proctocolitis. Venous doppler negative for DVT. Echo EF 55-60%. Cardiology consulted, patient underwent WEN which was negative for vegetation. Hip CT chronic right hip deformity with subluxation and no evidence of osteomyelitis. Orthopedic Sx consulted, no indication for emergent surgical intervention. Tagged WBC study ordered by ID and refused by patient's family. Persistent fevers and bacteremia, Cefzolin switched to Nafcillin and Flagyl added. Now afebrile since 03/24 (though with low-grade fevers), ID recommended 6 weeks of Cefzolin and Flagyl. Patient was noted to have significant asystole on telemetry while sleeping. EP consulted, Metoprolol and Zanaflex discontinued. 03/31 Patient was seen and examined. No acute events overnight. EP recommends holding Zanaflex for 48H and discontinuing Metoprolol, cleared for discharge if bradycardia resolves x 48H, outpatient sleep study. General: non toxic, no distress, appears at stated age Derm: warm, dry Head: atraumatic, normocephalic, symmetric Eyes: EOMI, no lid lag, anicteric sclera Mouth: no lip lesion, mucus membranes moist Cardiovascular: Good distal perfusion in all 4 extremities, Normal S1 S2 Lungs: Breathing comfortably, no accessory muscle use, CTA BL Ext: no gross muscle atrophy, no edema, all 4 extremity contractures Psych: Alert, oriented, appropriate affect Asystole: Possible vagal response while sleeping. Would benefit from sleep study outpatient. TSH wnl. EP recommends discontinuing Metoprolol and Zanaflex x 48H. Telemetry monitoring. Hypokalemia: BMP pending this morning. Sepsis due to Gram positive bacteremia: BCx MSSA 03/20, 03/23 and 03/24. BCx 03/25 and 03/26 negative. ID recommends 6 weeks of Cefzolin and Flagyl. ID on board. Hypertension: BP 173/98. Metoprolol stopped due to asystolic episodes. Amlodipine increased to 10 mg PO QD. Fecal impaction: Surgery note reviewed, soft stool, enema + lactulose. History of cerebral palsy History of hip replacement as well as extensive back surgery for scoliosis Stage I decubitus ulcer sacral which was present on admission Transaminitis CODE STATUS: FULL CODE DVT Prophylaxis: Lovenox SQ GI Prophylaxis: Protonix IV Designated medical POA if patient is not able to make medical decisions for themselves: I have reviewed the following consultant [employer]. vice president [employer] (ex ) notes: EP, ID note. I have reviewed the results of the following tests: I have ordered the following tests: BMP pending. I have discussed the care of this patient with the following independent historian: I have independently interpreted the following test below: I have discussed the management of this patient with the following physician: Objective - Vital Signs Vital signs: Vital Signs Temp 99.4 F 03/31/24 02:19 Pulse 93 03/31/24 02:19 Resp 18 03/31/24 02:19 BP 173/98 03/31/24 02:19 Pulse Ox 98 03/31/24 02:19 FiO2 Intake & Output 03/30/24 03/31/24 03/31/24 18:59 06:59 18:59 Intake Total 240 Output Total 1 Balance 240 -1 Intake: Oral 240 Output: Stool 1 Other: # Voids 1 1 # Bowel Movements 1 - Labs CBC & Chem 7: 03/29/24 07:23 03/30/24 17:23 Labs: Abnormal Lab Results - Last 24 Hours (Table) 03/30/24 03/30/24 Range/Units 08:11 17:23 Potassium 3.1 L 3.3 L (3.5-5.1) mmol/L BUN 5 L (9-20) mg/dL Creatinine 0.35 L (0.66-1.25) mg/dL Microbiology - Last 24 Hours (Table) 03/25/24 04:56 Blood Culture - Final Blood
[2024-03-31 16:31] LABS: African American GFR (CKD) >90 (>60 ml/min/1.73 sqM); Anion Gap 7 mmol/L; Blood Urea Nitrogen 6 mg/dL (9-20); Calcium 8.9 mg/dL (8.4-10.2); Carbon Dioxide 26 mmol/L (22-30); Chloride 105 mmol/L (98-107); Glucose 125 mg/dL (74-99); Non-African American GFR(CKD) >90 (>60 ml/min/1.73 sqM); Potassium 4.2 mmol/L (3.5-5.1); Sodium 138 mmol/L (137-145)
[2024-03-31] MEDS: hydrALAZINE HCL 50 MG TAB PO SCH (18:33)
[2024-04-01 07:39] VITALS: RESP 17
--- NOTE | 2024-04-01 09:29 | P.PN ---
Subjective Progress Note Date: 04/01/24 HISTORY OF PRESENT ILLNESS: This is a 58-year-old male with a past medical history significant for cerebral palsy. 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 We have been asked to see the patient in consultation for WEN. Patient examined at the bedside. patient is admitted to the hospital secondary to fecal impaction. Patient was also found to have MSSA bacteremia. Infectious disease is following. He remains on IV and bad experience internal medicine is requesting WEN to rule out vegetation. * EKG reveals sinus mechanism with no signs of acute ischemia * Chest xray negative for acute process * Laboratory data: W BC 8.4. Hemoglobin 13.9. Platelet count 331. Sodium 140. Potassium 3.0. BUN 8. Creatinine 0.48. * Current home cardiac medications include none * Echocardiogram obtained this hospitalization revealed ejection fraction 55- 60%, moderate pulmonary hypertension, trace to mild MR, mild TR. 03/30 Patient was previously seen by cardiology and underwent WEN due to bacteremia. WEN was performed on 03/26 revealed no evidence of endocarditis, no evidence of valvular dysfunction, normal global LV size and systolic function. We have been asked to reevaluate the patient for sinus pauses. Patient noted to have sinus pauses during the nighttime over the past 2 nights on several occasions up to 5.2 seconds. All instances have occurred at nighttime. Unknown if patient has sleep apnea as he has never been tested and would be quite difficult due to his history of cerebral palsy. Patient had previously been started on Lopressor 12.5 mg twice daily for intermittent tachycardia. Blood pressure 171/91, heart rate 83, pulse ox 97% on room air. Potassium is 3.1 and will be replaced. 03/31 Patient was seen by Dr. Cherry yesterday with recommendations for discontinuing metoprolol completely. Hold Zanaflex for 48 hours and then resume. Plan to monitor for bradycardia over the next 2 days to see if there is complete resolution and at that point he may be cleared for discharge. He also recommended a sleep study outpatient. Patient did have bradycardia last night in the 30s and 40s but no pauses. Plan is to continue monitoring for 1 more day. Amlodipine has been increased by attending. Blood pressure 185/106. Potassium 3.3 04/01 Patient is seen today in follow-up. No further episodes of sinus pauses. He is cleared to resume Zanaflex. Yesterday blood pressure readings were elevated and hydralazine was also started despite increase of amlodipine. Heart rate is 100, blood pressure 154/86. Pulse ox 99% on room air. PHYSICAL EXAM: VITAL SIGNS: Reviewed. GENERAL: Well-developed in no acute distress. HEENT: Head is normocephalic. Pupils are equal, round. Sclerae anicteric. Mucous membranes of the mouth are moist. Neck supple. No JVD or thyromegaly LUNGS: Respirations even and unlabored. Lungs essentially clear to auscultation bilaterally. HEART: Regular rate and rhythm. S1 and S2 heard. ABDOMEN: Soft. Nondistended. Nontender. EXTREMITIES: No clubbing or cyanosis. Peripheral pulses intact. No lower extremity edema NEUROLOGIC: Awake and alert. ASSESSMENT: Fecal impaction MSSA bacteremia History of cerebral palsy Sinus pauses up to 5.2 seconds Hypokalemia PLAN: Discontinue beta-elkin May resume Zanaflex Increase hydralazine to 75 mg 3 times daily and continue amlodipine 10 mg daily Event monitor for 14 days Patient is cleared for discharge and may follow-up with Dr. TEE Brock in 3 weeks. Nurse practitioner note has been reviewed by physician. Signing provider agrees with the documented findings, assessment, and plan of care. Objective - Vital Signs Vital signs: Vital Signs Temp 97.5 F L 04/01/24 07:25 Pulse 100 04/01/24 07:25 Resp 17 04/01/24 07:25 BP 154/86 04/01/24 07:25 Pulse Ox 99 04/01/24 07:25 FiO2 Intake & Output 03/31/24 04/01/24 04/01/24 18:59 06:59 18:59 Other: Voiding Method Diaper Diaper # Voids 4 1 # Bowel Movements 1 - Labs CBC & Chem 7: 03/29/24 07:23 03/31/24 15:11 Labs: Abnormal Lab Results - Last 24 Hours (Table) 03/31/24 Range/Units 15:11 BUN 6 L (9-20) mg/dL Creatinine 0.36 L (0.66-1.25) mg/dL Glucose 125 H (74-99) mg/dL Microbiology - Last 24 Hours (Table) 03/26/24 04:18 Blood Culture - Final Blood
[2024-04-01] MEDS: tiZANidine 4 MG TAB PO SCH (09:43)
[2024-04-01] MEDS: hydrALAZINE HCL 25 MG TAB PO SCH (09:44)
--- NOTE | 2024-04-01 12:06 | P.DS ---
Providers Date of admission: 03/22/24 13:04 Discharge Diagnosis: Asystole Hypokalemia Sepsis due to gram-positive bacteremia Hypertension Fecal impaction History of cerebral palsy History of hip replacement Stage I decubitus ulcer sacral (present on admission) Transaminitis Hospital Course: 59 year old M with PMH of cerebral palsy presents to the ED for fever, lethargy and poor oral intake. In the ED he underwent extensive evaluation. BP 123/85, HR 110, T 98.2F, RR 16, 97% on RA. His Tmax went up to 101.2F. CBC, Coag panel, CMP significant for WBC 22.2, K 2.9, Cl 109, Cr 0.38, glu 129, Ca 8.0, total protein 6, alb 3.1. Troponin 0.023, 0.02. Mag 2.1. UA negative for LE or nitrite. Flu/RSV/COVID negative. CXR no acute findings. CT AP showed fecal impaction. Patient was started on Zosyn IV and admitted for further workup and management. While in the hospital patient was evaluated by surgery, started on Lactulose and soap suds enema. Blood culture came back positive for presumptive MSSA. Antibiotics switched to Cefzolin and ID consulted for further management. CT AP showed rectosigmoid thickening may reflect proctocolitis. Venous doppler negative for DVT. Echo EF 55-60%. Cardiology consulted, patient underwent WEN which was negative for vegetation. Hip CT chronic right hip deformity with subluxation and no evidence of osteomyelitis. Orthopedic Sx consulted, no indication for emergent surgical intervention. Tagged WBC study ordered by ID and refused by patient's family. Persistent fevers and bacteremia, Cefzolin switched to Nafcillin and Flagyl added. Now afebrile since 03/24 (though with low-grade fevers), ID recommended 6 weeks of Cefzolin and Flagyl. Patient had blood cultures from 03/25 and 03/26 show no growth after 5 days representing clearance of bacteria from the blood. Patient was noted to have significant asystole on telemetry while sleeping. EP consulted, Metoprolol and Zanaflex discontinued. After 2 days (03/30 - 04/01) of monitoring patient was found to not have any further asystole or bradycardic episodes, at this point patient was medically cleared for discharge. Patient will be discharged on event monitor and IV antibiotics via PICC line. Patient is being discharged to home with home health services. Patient is recommended to follow-up with his PCP, infectious disease physician, business development director and [facility]. Pt seen and examined at bedside: Patient seen this morning laying in bed, excited to leave. No complaints. Vital signs reveiwed and stable: General: non toxic, no distress, appears at stated age Derm: warm, dry Head: atraumatic, normocephalic, symmetric Eyes: EOMI, no lid lag, anicteric sclera Mouth: no lip lesion, mucus membranes moist Cardiovascular: Good distal perfusion in all 4 extremities, Normal S1 S2 Lungs: Breathing comfortably, no accessory muscle use, CTA BL Ext: no gross muscle atrophy, no edema, all 4 extremity contractures Psych: Alert, oriented, appropriate affect A total of [] minutes were spent preparing this complex discarge summary. Patient was discharged on []. Attending physician: Axel Cuba Consults: 03/22/24 08:08 Consult Physician Urgent Consulting Provider: Jennifer Hopper Consult Reason/Comments: MSSA bacteremia Do you want consulting provider notified?: Yes 03/28/24 11:22 Consult Physician Routine Consulting Provider: Latrell Love Consult Reason/Comments: right hip remote fracture, possible source of MSSA bactermia Do you want consulting provider notified?: Yes 03/30/24 04:06 Consult Physician Routine Consulting Provider: Carmen Brock Consult Reason/Comments: pauses Do you want consulting provider notified?: Yes, Notify in am 03/30/24 10:26 Consult Physician Routine Consulting Provider: Sudarshan Cherry Consult Reason/Comments: sinus pauses Do you want consulting provider notified?: Yes Primary care physician: [facility] Course: I have seen and evaluated the patient today. Discussed with the resident and agree with the residents subjective and objective as documented in the resident's note. The assessment and plan was discussed and outlined as below. Cardiology has re-started Zanaflex and cleared the patient for discharge. Plans for event monitor prior to discharge. Dr. Hopper recommending 6 weeks of Cefzolin. Follow up with PCP within 1-2 days, Cardiology within [address] Hopper within 1 week of discharge. Discharge Diagnosis: Asystole Hypokalemia Sepsis due to Gram positive bacteremia Hypertension Fecal impaction History of cerebral palsy History of hip replacement as well as extensive back surgery for scoliosis Stage I decubitus ulcer sacral which was present on admission Transaminitis This complex discharge took 35 minutes to complete. Patient Condition at Discharge: Stable Plan - Discharge Summary Discharge Rx Participant: Yes New Discharge Prescriptions: New hydrALAZINE HCL [Apresoline] 75 mg PO TID #270 tab amLODIPine [Norvasc] 10 mg PO DAILY #30 tab ceFAZolin [Kefzol] 2 gm IVP Q8HR #120 each Continue Ascorbic Acid [Vitamin C] 500 mg PO DAILY ALPRAZolam [Xanax] 0.25 mg PO BID PRN PRN Reason: Anxiety Omeprazole 20 mg PO DAILY tiZANidine [Zanaflex] 4 mg PO TID polyethylene glycoL 3350 [Miralax] 17 gm PO DAILY Famotidine [Pepcid] 20 mg PO BID Discharge Medication List ALPRAZolam [Xanax] 0.25 mg PO BID PRN 03/20/24 [History] Ascorbic Acid [Vitamin C] 500 mg PO DAILY 03/20/24 [History] Famotidine [Pepcid] 20 mg PO BID 03/20/24 [History] Omeprazole 20 mg PO DAILY 03/20/24 [History] polyethylene glycoL 3350 [Miralax] 17 gm PO DAILY 03/20/24 [History] tiZANidine [Zanaflex] 4 mg PO TID 03/20/24 [History] ceFAZolin [Kefzol] 2 gm IVP Q8HR #120 each 03/30/24 [Rx] amLODIPine [Norvasc] 10 mg PO DAILY #30 tab 04/01/24 [Rx] hydrALAZINE HCL [Apresoline] 75 mg PO TID #270 tab 04/01/24 [Rx] Follow up Appointment(s)/Referral(s): Carmen Brock MD [STAFF PHYSICIAN] - 3 Weeks [facility] [NON-STAFF] - 1 Week [facility], [REFERRING] - 1 Week Neil Conway MD [Primary Care Provider] - 1-2 days Jennifer Hopper MD [STAFF PHYSICIAN] - 1 Week Ambulatory/Diagnostic Orders: Basic Metabolic Panel [LAB.AMB] Location: None Selected C Reactive Protein [LAB.AMB] Location: None Selected Complete Blood Count w/diff [LAB.AMB] Location: None Selected Erythrocyte Sedimentation Rate [LAB.AMB] Location: None Selected Discharge Disposition: HOME SELF-CARE
--- NOTE | 2024-04-01 13:29 | P.PN ---
Subjective Progress Note Date: 03/31/24 Principal diagnosis: Reason for follow-up is MSSA bacteremia Patient is a 58-year-old -[place] male past medical history significant for cerebral palsy spastic quadriplegia microcephaly seizure disorder chronically dislocated right hip patient has been brought into the hospital few days ago for evaluation of lethargy decreased oral intake patient was noticed to be febrile and did have a positive blood culture with MSSA prompting this consultation CT abdominal pelvis with fecal impaction. On today's evaluation that is 03/31/2024, Patient is afebrile patient is curre ntly on room air and denies having any shortness of breath, the patient denies any chest pain or cough, the patient denies any nausea vomiting did not have any abdominal pain and no diarrhea has been reported. Patient did have a creatinine 0.36 blood culture repeat has been negative Objective - Vital Signs Vital signs: Vital Signs Temp 98.8 F 03/31/24 09:00 Pulse 99 03/31/24 10:11 Resp 16 03/31/24 09:00 BP 155/87 03/31/24 10:11 Pulse Ox 99 03/31/24 10:11 FiO2 Intake & Output 03/30/24 03/31/24 03/31/24 18:59 06:59 18:59 Intake Total 240 Output Total 1 Balance 240 -1 Intake: Oral 240 Output: Stool 1 Other: # Voids 1 1 # Bowel Movements 1 - Exam GENERAL DESCRIPTION: Middle-age male lying in bed in no distress RESPIRATORY SYSTEM: Unlabored breathing , decreased breath sounds at bases HEART: S1 S2 regular rate and rhythm , ABDOMEN: Soft , no tenderness EXTREMITIES: No swelling redness or tenderness was noticed on the spine or bilateral hip area - Labs CBC & Chem 7: 03/29/24 07:23 03/31/24 15:11 Labs: Abnormal Lab Results - Last 24 Hours (Table) 03/30/24 Range/Units 17:23 Potassium 3.3 L (3.5-5.1) mmol/L Microbiology - Last 24 Hours (Table) 03/25/24 04:56 Blood Culture - Final Blood Assessment and Plan (1) Sepsis Current Visit: Yes Status: Acute Code(s): A41.9 - SEPSIS, UNSPECIFIED ORGANISM SNOMED Code(s): 98447822 (2) MSSA bacteremia Current Visit: Yes Status: Acute Code(s): R78.81 - BACTEREMIA; B95.61 - METHICILLIN SUSCEP STAPH INFCT CAUSING DIS CLASSD ELSWHR SNOMED Code(s): 392490797 Plan: 1patient presented to hospital with sepsis in this patient who did have fever tachycardia elevated white count presented with the weakness lethargy noticed to have fecal impaction question of possible abdominal source 2-patient also have MSSA bacteremia which is usually of a skin and soft tissue origin currently the patient do not have any significant skin breakdown except a stage II to the sacral area patient did have a history of chronic dislocation of the right hip however there was no signs of any swelling redness warmth or wound at the bilateral hip or the spine area 3- Blood cultures repeated on 03/25/2024 as well as 03/26/2024 has been negative 4- tagged WBC scan for possible evaluation of the source of infection, the patient's sister is currently refusing any further testing or WBC scan this has been discussed in detail with the patient's sister in the presence of patient nurse 5TEE did not show any evidence of endocarditis, patient did have CT of abdominal pelvis that shows possible proctocolitis 6-patient did have x-ray of the right hip which did show subluxed right hip superiorly with remote appearing fracture of the right proximal femur Ortho has been consulted, patient did have CT of the right hip no evidence of any effusion or bony destruction 7patient did have clearance of his bacteremia PICC line has been placed 8-patient to continue with Naficillin however plan is to finish therapy with cefazolin 2 g every 8 hours to finish a total of 6-week course of therapy and close outpatient follow-up Dictation was produced using [employer] dictation software. please excuse any grammatical, word or spelling errors. Time with Patient: Less than 30
--- NOTE | 2024-04-01 13:30 | P.PN ---
Subjective Progress Note Date: 04/01/24 Principal diagnosis: Reason for follow-up is MSSA bacteremia Patient is a 58-year-old -[place] male past medical history significant for cerebral palsy spastic quadriplegia microcephaly seizure disorder chronically dislocated right hip patient has been brought into the hospital few days ago for evaluation of lethargy decreased oral intake patient was noticed to be febrile and did have a positive blood culture with MSSA prompting this consultation CT abdominal pelvis with fecal impaction. On today's evaluation that is 04/01/2024, patient has been afebrile, patient is breathing comfortably and is currently on room air, patient currently sleepy but in no distress per the sister at the bedside overall doing better no vomiting or diarrhea has been reported. No new lab has been obtained today Objective - Vital Signs Vital signs: Vital Signs Temp 97.5 F L 04/01/24 07:25 Pulse 100 04/01/24 07:25 Resp 17 04/01/24 07:25 BP 154/86 04/01/24 07:25 Pulse Ox 99 04/01/24 07:25 FiO2 Intake & Output 03/31/24 04/01/24 04/01/24 18:59 06:59 18:59 Other: Voiding Method Diaper Diaper Diaper # Voids 4 1 # Bowel Movements 1 - Exam GENERAL DESCRIPTION: Middle-age male lying in bed in no distress RESPIRATORY SYSTEM: Unlabored breathing , decreased breath sounds at bases HEART: S1 S2 regular rate and rhythm , ABDOMEN: Soft , no tenderness EXTREMITIES: No swelling redness or tenderness was noticed on the spine or bilateral hip area - Labs CBC & Chem 7: 03/29/24 07:23 03/31/24 15:11 Labs: Abnormal Lab Results - Last 24 Hours (Table) 03/31/24 Range/Units 15:11 BUN 6 L (9-20) mg/dL Creatinine 0.36 L (0.66-1.25) mg/dL Glucose 125 H (74-99) mg/dL Microbiology - Last 24 Hours (Table) 03/26/24 04:18 Blood Culture - Final Blood Assessment and Plan (1) Sepsis Current Visit: Yes Status: Acute Code(s): A41.9 - SEPSIS, UNSPECIFIED ORGANISM SNOMED Code(s): 47459419 (2) MSSA bacteremia Current Visit: Yes Status: Acute Code(s): R78.81 - BACTEREMIA; B95.61 - METHICILLIN SUSCEP STAPH INFCT CAUSING DIS CLASSD ELSWHR SNOMED Code(s): 786094690 Plan: 1patient presented to hospital with sepsis in this patient who did have fever tachycardia elevated white count presented with the weakness lethargy noticed to have fecal impaction question of possible abdominal source 2-patient also have MSSA bacteremia which is usually of a skin and soft tissue origin currently the patient do not have any significant skin breakdown except a stage II to the sacral area patient did have a history of chronic dislocation of the right hip however there was no signs of any swelling redness warmth or wound at the bilateral hip or the spine area 3- Blood cultures repeated on 03/25/2024 as well as 03/26/2024 has been negative 4- tagged WBC scan for possible evaluation of the source of infection, the patient's sister is currently refusing any further testing or WBC scan this has been discussed in detail with the patient's sister in the presence of patient nurse 5TEE did not show any evidence of endocarditis, patient did have CT of abdominal pelvis that shows possible proctocolitis 6-patient did have x-ray of the right hip which did show subluxed right hip superiorly with remote appearing fracture of the right proximal femur Ortho has been consulted, patient did have CT of the right hip no evidence of any effusion or bony destruction 7patient did have clearance of his bacteremia PICC line has been placed 8- plan is to finish therapy with cefazolin 2 g every 8 hours to finish a total of 6-week course of therapy weekly monitoring of CRP and sed rate prescription was written and provided to the watch caser Dictation was produced using [employer] dictation software. please excuse any grammatical, word or spelling errors. Time with Patient: Less than 30
[2024-04-01 13:49] VITALS: BP 126/79; PULSE 98; TEMP 96.7
== END 2024-04-01 19:18 | disposition home health service (06) | DRG 871 ==
LOC: EC 16:53 → 6NMEDSUR 03-21 00:47 → OBSVTOIN 03-22 13:04
PROVIDERS: ADMIT Family Medicine; ATTEND Family Medicine
PROC: B246ZZ4 Ultrasonography of Right and Left Heart, Transesophageal (ICD-10-PCS; 2024-03-26)
PROC: B548ZZA Ultrasonography of Superior Vena Cava, Guidance (ICD-10-PCS; 2024-03-30)
PROC: B5181ZA Fluoroscopy of Superior Vena Cava using Low Osmolar Contrast, Guidance (ICD-10-PCS; 2024-03-30)
PROC: 02HV33Z Insertion of Infusion Device into Superior Vena Cava, Percutaneous Approach (ICD-10-PCS; principal; 2024-03-30 08:30)
DX: A41.01 Sepsis due to Methicillin susceptible Staphylococcus aureus (principal); G80.0 Spastic quadriplegic cerebral palsy; I46.8 Cardiac arrest due to other underlying condition; G40.909 Epilepsy, unspecified, not intractable, without status epilepticus; G56.41 Causalgia of right upper limb; L89.151 Pressure ulcer of sacral region, stage 1; E87.6 Hypokalemia; M24.451 Recurrent dislocation, right hip; Q02 Microcephaly; M26.09 Other specified anomalies of jaw size; R00.1 Bradycardia, unspecified; G47.30 Sleep apnea, unspecified; I10 Essential (primary) hypertension; M41.9 Scoliosis, unspecified; I08.1 Rheumatic disorders of both mitral and tricuspid valves; M21.951 Unspecified acquired deformity of right thigh; K56.41 Fecal impaction; I27.20 Pulmonary hypertension, unspecified; I49.5 Sick sinus syndrome; R74.01 Elevation of levels of liver transaminase levels; Z96.649 Presence of unspecified artificial hip joint
CPT/HCPCS: 36415; 36573; 71046; 73502; 74019; 74177; 74178; 80048; 80053; 81001; 83735; 84132; 84145; 84443; 84484; 85025; 85027; 85379; 85610; 85652; 85730; 86140; 87040; 87077; 87186; 87636; 93005; 93270; 93306; 93312; 93320; 93325; 93970; 96361; 96365; 99285

== ENCOUNTER → 2024-06-04 | Outpatient (CLI) | payer MEDICARE, OTHER | END | disposition home or self-care (01) | LOC: LABWHC1 11:05 | PROVIDERS: ATTEND Internal Medicine Infectious Disease | DX: A49.01 Methicillin susceptible Staphylococcus aureus infection, unspecified site (principal) | CPT/HCPCS: 87040 ==

== ENCOUNTER 2024-06-09 23:07 | Emergency (ER) | payer MEDICARE, OTHER ==
--- NOTE | 2024-06-10 00:16 | ED ---
Nausea/Vomiting/Diarrhea HPI - General Chief complaint: Nausea/Vomiting/Diarrhea Stated complaint: NVD weakness Time Seen by Provider: 06/09/24 23:47 Source: Caregiver Mode of arrival: wheelchair Limitations: no limitations - History of Present Illness Initial comments: Patient is a 59-year-old gentleman the past medical history cerebral palsy presenting with his sister and [id number] today for 1 day nausea vomiting. Patient sister who is his caregiver states patient is had multiple set of nonbloody nonbilious emesis today. Also multiple loose stools that were nonbloody, no melena. Abdomen has appeared more distended than normal. Is behaving like he normally would. No fevers. History is limited as patient is essentially nonverbal. Sister states that he does not appear to have been in any pain. She was concerned as patient has had similar symptoms in the past and required admission for sepsis. - Related Data Home Medications Medication Instructions Recorded Confirmed ALPRAZolam [Xanax] 0.25 mg PO BID PRN 03/20/24 03/20/24 Ascorbic Acid [Vitamin C] 500 mg PO DAILY 03/20/24 03/20/24 Famotidine [Pepcid] 20 mg PO BID 03/20/24 03/20/24 Omeprazole 20 mg PO DAILY 03/20/24 03/20/24 polyethylene glycoL 3350 [Miralax] 17 gm PO DAILY 03/20/24 03/20/24 tiZANidine [Zanaflex] 4 mg PO TID 03/20/24 03/20/24 Previous Rx's Medication Instructions Recorded ceFAZolin [Kefzol] 2 gm IVP Q8HR #120 each 03/30/24 amLODIPine [Norvasc] 10 mg PO DAILY #30 tab 04/01/24 hydrALAZINE HCL [Apresoline] 75 mg PO TID #270 tab 04/01/24 Magnesium Hydroxide [Milk of 400 mg PO DIRECTED PRN #50 ml 06/10/24 Magnesia] Allergies Allergy/AdvReac Type Severity Reaction Status Date / Time No Known Allergies Allergy Verified 06/09/24 23:16 Review of Systems ROS Statement: Those systems with pertinent positive or pertinent negative responses have been documented in the HPI. ROS Other: All systems not noted in ROS Statement are negative. Limitations: ROS unobtainable due to patients medical condition Past Medical History Additional Past Medical History / Comment(s): Spastic quadriplegia, cerebtal palsy, microcephaly, seizur disorder, nystagmus, strabismus. Chronically dislocated right hip ([place] [facility] History of Any Multi-Drug Resistant Organisms: None Reported Additional Past Surgical History / Comment(s): Heelcord and hamstring lengthening (1971), right femur varus derotation with internal fixation (1975), Internal fixation removal (1978) Past Psychological History: No Psychological Hx Reported Smoking Status: Never smoker Past Alcohol Use History: None Reported Past Drug Use History: None Reported General Exam - General Exam Comments Initial Comments: PE: CONSTITUTIONAL: No apparent distress, well appearing, awake and alert, tracks caregivers around room, intermittently speaks garbled speech, baseline for patient, nontoxic appearing SKIN: Warm, dry, no jaundice, hives or petechiae EYES: Pupils are equally round, extraocular movements intact without nystagmus, clear conjunctiva, non-icteric sclera HENT: Normocephalic, atraumatic, dry mucus membranes, oropharynx clear without exudates NECK: , Full range of motion, normal appearance PULMONARY: Clear to auscultation without wheezes, rhonchi, or rales, normal excursion, no accessory muscle use and no stridor CARDIOVASCULAR: Regular rate, rhythm, normal S1 and S2. No appreciated murmurs, rubs or gallops. Strong radial pulses with intact distal perfusion. No lower extremity edema GASTROINTESTINAL: Soft, active bowel sounds throughout, non-tender/no guarding, patient does not display signs of pain when abdomen palpated, distended and tympanic, no rebound or guarding. No hepatosplenomegaly MUSCULOSKELETAL: Extremities have no gross deformity, no edema, redness, or sw elling. No calf swelling, chronic upper and lower extremity muscle contracture NEUROLOGIC:_At [facility], as above, Moves upper and lower extremities without obvious deficits PSYCHIATRIC: Calm and cooperative Limitations: no limitations Course Vital Signs 06/09/24 06/09/24 06/10/24 23:17 23:35 01:00 Temperature 98.7 F Pulse Rate 124 H 101 H Respiratory 19 18 Rate Blood Pressure 120/103 133/93 O2 Sat by Pulse 97 96 Oximetry 10/03/24 10/03/24 04:24 05:44 Temperature 97.8 F Pulse Rate 95 96 Respiratory 24 18 Rate Blood Pressure 134/85 137/96 O2 Sat by Pulse 97 96 Oximetry Medical Decision Making - Medical Decision Making Was pt. sent in by a medical professional or institution (, PA, HUMAN RESOURCES SAFETY MANAGER, urgent care, hospital, or fdc...) When possible be specific @ -No Did you speak to anyone other than the patient for history (EMS, parent, family, police, friend...)? What history was obtained from this source @Spoke with patient sister, who is his caregiver Did you review nursing and triage notes (agree or disagree)? Why? @ -I reviewed nursing and triage notes-obtain similar history from patient sister however patient is not lethargic on my assessment Were old charts reviewed (outside hosp., previous admission, EMS record, old EKG, old radiological studies, urgent care reports/EKG's, fdc records)? Report findings @ -Reviewed H&P from recent admission March, and 2023, had presented for baldo rgy and poor oral intake, at that time was also noted to be short of breath, nonproductive cough no vomiting or diarrhea CT showed fecal impaction chest x- ray unremarkable, at that time patient had a leukocytosis white blood cell count 22.2 potassium 2.9 patient is febrile with temp 101 and tachycardic, admitted for SIRS without obvious worse infection, hypokalemia and fecal impaction Differential Diagnosis (chest pain, altered mental status, abdominal pain women, abdominal pain men, vaginal bleeding, weakness, fever, dyspnea, syncope, headache, dizziness, GI bleed, back pain, seizure, CVA, palpatations, mental health, musculoskeletal)? @Differential diagnosis remains broad however top considerations include bowel obstruction, volvulus, urinary tract infection, gastroenteritis, constipation, cholecystitis, this is not all-inclusive list EKG interpreted by me (3pts min.). @ -As above X-rays interpreted by me (1pt min.). @ -None done CT interpreted by me (1pt min.). @ -Large volume of stool throughout the sigmoid colon, no free air, no bowel wall thickening U/S interpreted by me (1pt. min.). @ -None done What testing was considered but not performed or refused? (CT, X-rays, U/S, la bs)? Why? @ -None What meds were considered but not given or refused? Why? @ -None Did you discuss the management of the patient with other professionals (professionals i.e. , PA, HUMAN RESOURCES SAFETY MANAGER, lab, RT, psych nurse, nursing home social worker, real estate lawyer, teacher, payroll officer, bilingual patient support caseworker)? Give summary @ -No Was smoking cessation discussed for >3mins.? @ -No Was critical care preformed (if so, how long)? @ -No Were there social determinants of health that impacted care today? How? (Homelessness, low income, unemployed, alcoholism, drug addiction, transportation, low edu. Level, literacy, decrease access to med. care, care home, rehab)? @ -No Was there de-escalation of care discussed even if they declined (Discuss DNR or withdrawal of care, Hospice)? @ -No What co-morbidities impacted this encounter? (DM, HTN, Smoking, COPD, CAD, Cancer, CVA, ARF, Chemo, Hep., AIDS, mental health diagnosis, sleep apnea, morbid obesity)? @Cerebral palsy Was patient admitted / discharged? Hospital course, mention meds given and route, prescriptions, significant lab abnormalities, going to OR and other pertinent info. @ -Hospital course discharged- Patient is a 59-year-old gentleman with a past medical history of cerebral palsy presenting with his sister and [id number] today for abdominal distention, nausea vomiting. On assessment patient is at baseline, overall well-appearing, exam significant for somewhat dry mucous membranes and a mildly distended tympanic abdomen. No guarding present, no palpable masses. Active bowel sounds throughout. Discussed with patient's sister/caregiver plan for IV fluids CT abdomen pelvis and comprehensive labs, urinalysis. She is agreeable with plan. CT abdomen pelvis reviewed, showed a large volume of stool in the sigmoid colon measuring up to 13.7 cm, consistent with a severe fecal impaction, no hydronephrosis nephrolithiasis or obstructive uropathy, no free air or fluid collection. Labs reviewed, significant for what appears to be hemoconcentration, suspect secondary to volume depletion secondary to vomiting, with a slightly elevated white blood cell count of 11.2 this could be secondary to patient's recent episodes of emesis as well, neutrophils 9.8, red blood cells 7.0, hemoglobin 18.3, hematocrit 58.5. Patient received 1 L IV fluid. Lactic 1.3. CMP reviewed. Grossly within normal limits. Abnormal values not concerning for acute pathology related to presenting complaint. Urinalysis showed trace protein, moderate blood, 1+ bilirubin, 99 red blood cells, 17 hyaline casts however no leukocyte esterase or nitrates, viral panel negative. Suspect blood is secondary to straight cath urine sample. Updated patient's sister to these findings including imaging and labs. We discussed performing an enema here in the emergency department and administered milk of magnesia. Patient's sister is agreeable plan. After enema and milk of magnesia administration patient was reassessed. He did have a small bowel movement and abdomen was less distended and softer to palpation. Patient has been able to tolerate PO intake. I discussed with patient's sister aggressive bowel regimen to performed at home in addition to signs and symptoms warranting return to the emergency department. Additionally, pt's sister notes the patient does drink plenty of fluid, but we discussed additional strategies to keep patient hydrated such as offering patient drinks like Pedialyte. Patient sister was agreeable and comfortable this plan and patient was discharged in improved condition. In my medical judgment there is currently no evidence of an immediate life-threa tening or surgical condition. Discharge is therefore indicated at this time. Discharge treatment instructions, follow up instructions, and appropriate emergency department return precautions were discussed with the patient and/or medical decision maker. Patient and/or medical decision maker expressed understanding of and agreed with the treatment plan, follow up instructions, and emergency department return precaution. All patient's and/or medical decision maker's questions were answered. Undiagnosed new problem with uncertain prognosis? @ -No Drug Therapy requiring intensive monitoring for toxicity (Heparin, Nitro, Insulin, Cardizem)? @ -No Were any procedures done? @ -No Diagnosis/symptom? @Constipation, nausea and vomiting Acute, or Chronic, or Acute on Chronic? @Acute Uncomplicated (without systemic symptoms) or Complicated (systemic symptoms)? @Complicated Side effects of treatment? @ -No Exacerbation, Progression, or Severe Exacerbation? @ -No Poses a threat to life or bodily function? How? (Chest pain, [place], [place], pneumonia, PE, COPD, DKA, ARF, appy, cholecystitis, CVA, Diverticulitis, Homicidal, Suicidal, threat to staff... and all critical care pts) @No - Lab Data Result diagrams: 06/10/24 00:55 06/10/24 01:50 Lab Results 06/10/24 06/10/24 06/10/24 Range/Units 00:55 00:55 01:50 WBC 11.2 H (3.8-10.6) k/uL RBC 7.01 H (4.30-5.90) m/uL Hgb 18.3 H (13.0-17.5) gm/dL Hct 58.5 H* (39.0-53.0) % MCV 83.3 (80.0-100.0) fL MCH 26.2 (25.0-35.0) pg MCHC 31.4 (31.0-37.0) g/dL RDW 12.8 (11.5-15.5) % Plt Count 183 (150-450) k/uL MPV 9.7 Neutrophils % 88 % Lymphocytes % 5 % Monocytes % 6 % Eosinophils % 1 % Basophils % 0 % Neutrophils # 9.8 H (1.3-7.7) k/uL Lymphocytes # 0.6 L (1.0-4.8) k/uL Monocytes # 0.7 (0-1.0) k/uL Eosinophils # 0.1 (0-0.7) k/uL Basophils # 0.0 (0-0.2) k/uL Sodium 141 (137-145) mmol/L Potassium 3.7 (3.5-5.1) mmol/L Chloride 106 (98-107) mmol/L Carbon Dioxide 23 (22-30) mmol/L Anion Gap 12 mmol/L BUN 28 H (9-20) mg/dL Creatinine 0.48 L (0.66-1.25) mg/dL Est GFR (CKD-EPI)AfAm >90 (>60 ml/min/1.73 sqM) Est GFR (CKD-EPI)NonAf >90 (>60 ml/min/1.73 sqM) Glucose 166 H (74-99) mg/dL Plasma Lactic Acid Crescencio 1.3 (0.7-2.0) mmol/L Calcium 9.0 (8.4-10.2) mg/dL Total Bilirubin 0.9 (0.2-1.3) mg/dL AST 26 (17-59) U/L ALT 20 (4-49) U/L Alkaline Phosphatase 135 H (38-126) U/L Total Protein 7.9 (6.3-8.2) g/dL Albumin 4.3 (3.5-5.0) g/dL Amylase 59 (30-110) U/L Lipase 20 L (23-300) U/L Urine Color Urine Appearance (Clear) Urine pH (5.0-8.0) Ur Specific Arena (1.001-1.035) Urine Protein (Negative) Urine Glucose (UA) (Negative) Urine Ketones (Negative) Urine Blood (Negative) Urine Nitrite (Negative) Urine Bilirubin (Negative) Urine Urobilinogen (<2.0) mg/dL Ur Leukocyte Esterase (Negative) Urine RBC (0-5) /hpf Urine WBC (0-5) /hpf Ur Squamous Epith Cells (0-4) /hpf Hyaline Casts (0-2) /lpf Granular Casts (0) /lpf Urine Mucus (None) /hpf Influenza Type A (PCR) (Not Detectd) Influenza Type B (PCR) (Not Detectd) RSV (PCR) (Not Detectd) SARS-CoV-2 (PCR) (Not Detectd) 06/10/24 06/10/24 Range/Units 01:55 04:09 WBC (3.8-10.6) k/uL RBC (4.30-5.90) m/uL Hgb (13.0-17.5) gm/dL Hct (39.0-53.0) % MCV (80.0-100.0) fL MCH (25.0-35.0) pg MCHC (31.0-37.0) g/dL RDW (11.5-15.5) % Plt Count (150-450) k/uL MPV Neutrophils % % Lymphocytes % % Monocytes % % Eosinophils % % Basophils % % Neutrophils # (1.3-7.7) k/uL Lymphocytes # (1.0-4.8) k/uL Monocytes # (0-1.0) k/uL Eosinophils # (0-0.7) k/uL Basophils # (0-0.2) k/uL Sodium (137-145) mmol/L Potassium (3.5-5.1) mmol/L Chloride (98-107) mmol/L Carbon Dioxide (22-30) mmol/L Anion Gap mmol/L BUN (9-20) mg/dL Creatinine (0.66-1.25) mg/dL Est GFR (CKD-EPI)AfAm (>60 ml/min/1.73 sqM) Est GFR (CKD-EPI)NonAf (>60 ml/min/1.73 sqM) Glucose (74-99) mg/dL Plasma Lactic Acid Crescencio (0.7-2.0) mmol/L Calcium (8.4-10.2) mg/dL Total Bilirubin (0.2-1.3) mg/dL AST (17-59) U/L ALT (4-49) U/L Alkaline Phosphatase (38-126) U/L Total Protein (6.3-8.2) g/dL Albumin (3.5-5.0) g/dL Amylase (30-110) U/L Lipase (23-300) U/L Urine Color Dark Brown Urine Appearance Clear (Clear) Urine pH 6.0 (5.0-8.0) Ur Specific Arena 1.023 (1.001-1.035) Urine Protein Trace H (Negative) Urine Glucose (UA) Negative (Negative) Urine Ketones Negative (Negative) Urine Blood Moderate H (Negative) Urine Nitrite Negative (Negative) Urine Bilirubin 1+ H (Negative) Urine Urobilinogen 4.0 (<2.0) mg/dL Ur Leukocyte Esterase Negative (Negative) Urine RBC 99 H (0-5) /hpf Urine WBC 2 (0-5) /hpf Ur Squamous Epith Cells <1 (0-4) /hpf Hyaline Casts 17 H (0-2) /lpf Granular Casts 1 (0) /lpf Urine Mucus Occasional H (None) /hpf Influenza Type A (PCR) Not Detected (Not Detectd) Influenza Type B (PCR) Not Detected (Not Detectd) RSV (PCR) Not Detected (Not Detectd) SARS-CoV-2 (PCR) Not Detected (Not Detectd) Disposition Clinical Impression: Constipation, Dehydration, Nausea and vomiting Disposition: HOME SELF-CARE Condition: Good Instructions (If sedation given, give patient instructions): Constipation (ED) Additional Instructions: Every disease is a spectrum and a small chance still exists that a serious condition could develop, for this reason, please monitor Marc closely for new, changing or worsening symptoms, symptoms that persist beyond 48 hours, worsening abdominal distention/abdomen that feels hard or firm to the touch, changes in behavior, appearing to be in pain when moved or when abdomen is touched, [fever], inability to tolerate/keep down fluids or hismedications, inability to follow up with outpatient providers as instructed and should he experience these symptoms or should you have any further concerns for his wellbeing please return to the ED or call 911 immediately. Please follow provided constipation protocol. You may use milk of magnesia in addition to this once daily as needed so that patient has soft stools the consistency of wet sand every day. Please have the patient drink plenty of fluids, eat plenty of foods high in water content and drink small months of juices as well as Pedialyte. PLEASE call your primary care physician as soon as possible to arrange / discuss plan for followup appointment. Appointment in the next 1-3 days is strongly encouraged if possible. PLEASE let us know here before you leave if there is anything further we can do to be of any assistance. Take care and feel Better! Prescriptions: Magnesium Hydroxide [Milk of Magnesia] 400 mg PO DIRECTED PRN #50 ml PRN Reason: Constipation Is patient prescribed a controlled substance at d/c from ED?: No Referrals: Neil Conway MD [Primary Care Provider] - 1-2 days
[2024-06-10 01:17] LABS: Basophils % (A) 0 %; Eosinophils # (A) 0.1 k/uL (0-0.7); Eosinophils % (A) 1 %; HGB 18.3 gm/dL (13.0-17.5); Lymphocytes # (A) 0.6 k/uL (1.0-4.8); Lymphocytes % (A) 5 %; MCH 26.2 pg (25.0-35.0); MCHC 31.4 g/dL (31.0-37.0); MCV 83.3 fL (80.0-100.0); Mean Platelet Volume 9.7; Monocytes # (A) 0.7 k/uL (0-1.0); Monocytes % (A) 6 %; Neutrophils # (A) 9.8 k/uL (1.3-7.7); Neutrophils % (A) 88 %; Platelet Count 183 k/uL (150-450); RDW 12.8 % (11.5-15.5); WBC 11.2 k/uL (3.8-10.6)
[2024-06-10 01:35] LABS: RBC 7.01 m/uL (4.30-5.90)
[2024-06-10 01:36] LABS: HCT 58.5 % (39.0-53.0)
[2024-06-10] MEDS: ONDANSETRON 4 MG/2 ML VIAL IVP STA (01:50)
[2024-06-10] MEDS: ACETAMINOPHEN IV (For NPO) 1,000 MG in EMPTY BAG 1 BAG IVPB STA (01:53)
[2024-06-10] MEDS: SODIUM CHLORIDE 0.9% 1,000 ML IV STA (01:54)
[2024-06-10 03:07] LABS: ALT 20 U/L (4-49); AST 26 U/L (17-59); African American GFR (CKD) >90 (>60 ml/min/1.73 sqM); Albumin 4.3 g/dL (3.5-5.0); Alkaline Phosphatase 135 U/L (38-126); Amylase 59 U/L (30-110); Anion Gap 12 mmol/L; Blood Urea Nitrogen 28 mg/dL (9-20); Carbon Dioxide 23 mmol/L (22-30); Chloride 106 mmol/L (98-107); Glucose 166 mg/dL (74-99); Lipase 20 U/L (23-300); Non-African American GFR(CKD) >90 (>60 ml/min/1.73 sqM); Potassium 3.7 mmol/L (3.5-5.1); Sodium 141 mmol/L (137-145); Total Bilirubin 0.9 mg/dL (0.2-1.3); Total Protein 7.9 g/dL (6.3-8.2)
--- NOTE | 2024-06-10 03:19 | CT ---
EXAM: CT Abdomen and Pelvis Without Intravenous Contrast CLINICAL HISTORY: ITS.REASON CT Reason: cerebral palsy, N/V/D distended abdomen TECHNIQUE: Axial computed tomography images of the abdomen and pelvis without intravenous contrast. CTDI is 9.3 mGy and DLP is 527.5 mGy-cm. This CT exam was performed using one or more of the following dose reduction techniques: automated exposure control, adjustment of the mA and/or kV according to patient size, and/or use of iterative reconstruction technique. COMPARISON: No relevant prior studies available. FINDINGS: Lung bases: Unremarkable. No mass. No consolidation. ABDOMEN: Liver: Unremarkable. Gallbladder and bile ducts: Unremarkable. No calcified stones. No ductal dilation. Pancreas: Unremarkable. No ductal dilation. Spleen: Unremarkable. No splenomegaly. Adrenals: Unremarkable. No mass. Kidneys and ureters: Unremarkable. No hydronephrosis, nephrolithiasis, or obstructive uropathy. Stomach and bowel: Large volume stool in the distal sigmoid colon, measuring up to 13.7 cm, consistent with severe fecal impaction. No mucosal thickening. PELVIS: Appendix: No findings to suggest acute appendicitis. Bladder: Unremarkable. No stones. Reproductive: Unremarkable as visualized. ABDOMEN and PELVIS: Intraperitoneal space: Unremarkable. No free air. No significant fluid collection. Bones/joints: Degenerative changes of the spine. RIGHT lateral fusion hardware. Head rods. No acute fracture. No dislocation. Soft tissues: Unremarkable. Vasculature: Atherosclerotic changes of the aorta. No abdominal aortic aneurysm. Lymph nodes: Unremarkable. No enlarged lymph nodes. IMPRESSION: 1. Large volume stool in the distal sigmoid colon, measuring up to 13.7 cm, consistent with severe fecal impaction. 2. No hydronephrosis, nephrolithiasis, or obstructive uropathy.
[2024-06-10 04:23] LABS: Appearance,Urine Clear (Clear); Bilirubin,Urine 1+ (Negative); Blood,Urine Moderate (Negative); Color,Urine Dark Brown; Glucose,Urine (UA) Negative (Negative); Granular Casts,Urine 1 /lpf (0); Hyaline Casts,Urine 17 /lpf (0-2); Ketones,Urine Negative (Negative); Leukocyte Esterase,Urine Negative (Negative); Mucus,Urine Occasional /hpf; Nitrite,Urine Negative (Negative); Protein,Urine Trace (Negative); RBC,Urine 99 /hpf (0-5); Specific Gravity,Urine 1.023 (1.001-1.035); Squamous Epithelial Cell,Urine <1 /hpf (0-4); WBC,Urine 2 /hpf (0-5)
[2024-06-10] MEDS: SODIUM CHLORIDE 0.9% 500 ML 500 ML IV ONE (04:30)
[2024-06-10] MEDS: MAGNESIUM HYDROXIDE 2,400 MG/30 ML CUP PO STA (04:31)
[2024-06-10 05:46] VITALS: BP 137/96; PULSE 96; RESP 18; TEMP 97.8
== END 2024-06-10 05:50 | disposition home or self-care (01) ==
LOC: EC 23:07
CPT/HCPCS: 36415; 74176; 80053; 81001; 82150; 83605; 83690; 85025; 87636; 96361; 96365; 96375; 99284

== ENCOUNTER → 2024-08-21 | Outpatient (CLI) | payer MEDICARE, OTHER ==
[2024-08-22 07:11] LABS: ALT 15 U/L (10-49); AST 17 U/L (14-35); Albumin 4.2 g/dL (3.8-4.9); Albumin/Globulin Ratio 1.24 Ratio (1.60-3.17); Alkaline Phosphatase 138 U/L (41-126); Blood Urea Nitrogen 8.8 mg/dL (9.0-27.0); Calcium 9.1 mg/dL (8.7-10.3); Carbon Dioxide 24.2 mmol/L (21.6-31.8); Chloride 102 mmol/L (96-109); Globulin 3.4 g/dL (1.6-3.3); Glucose 90 mg/dL (70-110); Potassium 3.9 mmol/L (3.5-5.5); Sodium 135 mmol/L (135-145); Total Bilirubin 0.4 mg/dL (0.3-1.2); Total Protein 7.6 g/dL (6.2-8.2)
[2024-08-22 07:46] LABS: Basophils # (A) 0.06 X 10*3/uL (0.00-0.10); Basophils % (A) 1.3 %; Eosinophils # (A) 0.16 X 10*3/uL (0.04-0.35); Eosinophils % (A) 3.4 %; HCT 51.8 % (39.6-50.0); HGB 15.9 g/dL (13.0-17.0); Lymphocytes # (A) 1.35 X 10*3/uL (0.90-5.00); Lymphocytes % (A) 28.7 %; MCH 24.2 pg (27.0-32.0); MCHC 30.7 g/dL (32.0-37.0); MCV 78.7 FL (80.0-97.0); Mean Platelet Volume 10.6 FL (9.5-12.2); Monocytes # (A) 0.38 X 10*3/uL (0.20-1.00); Monocytes % (A) 8.1 %; NRBC Per 100 WBC 0 X 10*3/uL (0.00-0.01); Neutrophils # (A) 2.75 X 10*3/uL (1.80-7.70); Neutrophils % (A) 58.3 %; Platelet Count 225 X 10*3/uL (140-440); RBC 6.58 X 10*6/uL (4.40-5.60); WBC 4.71 X 10*3/uL (4.50-10.00)
[2024-08-22 08:06] LABS: Prostate Specific Antigen 1.38 ng/mL (0.000-3.500)
== END | disposition home or self-care (01) ==
LOC: LABWHC1 11:20
PROVIDERS: ATTEND General Practice
DX: Q02 Microcephaly (principal); Z87.448 Personal history of other diseases of urinary system; Z87.440 Personal history of urinary (tract) infections
CPT/HCPCS: 36415; 80053; 84153; 85025

== ENCOUNTER → 2025-01-26 | Outpatient (CLI) | payer MEDICARE, OTHER ==
--- NOTE | 2025-01-26 12:38 | FL ---
Exam Date: 01/26/2025 12:30 PM. Modified barium swallow for dysphagia. Consistencies administered: Various consistency of barium. No images were sent to PACS. Please see speech pathology report. DAP: Not Reported mGym2 [facility], , 01/26/2025 12:36 PM
== END | disposition home or self-care (01) ==
LOC: RADFLMAIN 11:51
PROVIDERS: ATTEND General Practice
DX: R13.10 Dysphagia, unspecified (principal); G80.9 Cerebral palsy, unspecified; R19.7 Diarrhea, unspecified; G40.909 Epilepsy, unspecified, not intractable, without status epilepticus; I10 Essential (primary) hypertension; Z13.31 Encounter for screening for depression
CPT/HCPCS: 74230